=== PATIENT | female | born 1950 | race Caucasian/White ===

== ENCOUNTER → 2017-02-22 | Outpatient (CLI) | payer MEDICARE, OTHER ==
[2017-02-22 19:01] LABS: Basophils # (A) 0.1 k/uL (0-0.2); Basophils % (A) 1 %; CHCM 33.3; Eosinophils # (A) 0.1 k/uL (0-0.7); Eosinophils % (A) 1 %; HCT 49.9 % (34.0-46.0); HGB 16.3 gm/dL (11.4-16.0); Luc # (Auto) 0.16; Luc % (Auto) 2; Lymphocytes # (A) 1.7 k/uL (1.0-4.8); Lymphocytes % (A) 21 %; MCH 32.5 pg (25.0-35.0); MCHC 32.7 g/dL (31.0-37.0); MCV 99.6 fL (80.0-100.0); Mean Platelet Volume 9.4; Monocytes # (A) 0.5 k/uL (0-1.0); Monocytes % (A) 6 %; Neutrophils # (A) 5.6 k/uL (1.3-7.7); Neutrophils % (A) 70 %; RBC 5.01 m/uL (3.80-5.40); RDW 13.5 % (11.5-15.5); WBC 8.1 k/uL (3.8-10.6); WBC (Perox) 7.65
[2017-02-22 19:13] LABS: ALT 45 U/L (9-52); AST 39 U/L (14-36); Alkaline Phosphatase 94 U/L (38-126); Anion Gap 8 mmol/L; Blood Urea Nitrogen 14 mg/dL (7-17); Calcium 9.8 mg/dL (8.4-10.2); Carbon Dioxide 24 mmol/L (22-30); Chloride 102 mmol/L (98-107); Cholesterol 226 mg/dL (<200); Glucose 92 mg/dL (74-99); HDL Cholesterol 89 mg/dL (40-60); Non-African American GFR(MDRD) >60 (>60 ml/min/1.73 sqM); Potassium 5.7 mmol/L (3.5-5.1); Sodium 134 mmol/L (137-145); Total Bilirubin 0.5 mg/dL (0.2-1.3); Total Protein 7.1 g/dL (6.3-8.2); Triglycerides 80 mg/dL (<150)
[2017-02-22 20:01] LABS: Vitamin B12 712 pg/mL
== END | disposition home or self-care (01) ==
LOC: MMGSC 09:11
PROVIDERS: ATTEND Family Medicine
DX: Z00.00 Encounter for general adult medical examination without abnormal findings (principal); R53.83 Other fatigue
CPT/HCPCS: 36415; 80053; 80061; 82306; 82607; 84439; 84443; 85025

== ENCOUNTER → 2017-03-01 | Outpatient (CLI) | payer MEDICARE, OTHER ==
[2017-03-01 19:22] LABS: Potassium 4.5 mmol/L (3.5-5.1)
== END ==
LOC: MMGSC 09:27
PROVIDERS: ATTEND Family Medicine
DX: E87.5 Hyperkalemia (principal)
CPT/HCPCS: 36415; 80051

== ENCOUNTER → 2019-09-16 | Outpatient (CLI) | payer MEDICARE, BC ==
--- NOTE | 2019-09-19 16:34 | ECHOF ---
Referral Reason:R55 syncope MEASUREMENTS -------- HEIGHT: 162.6 cm WEIGHT: 61.2 kg BP: 158/74 RVIDd: 2.8 cm (< 3.3) IVSd: 1.3 cm (0.6 - 1.1) LVIDd: 3.8 cm (3.9 - 5.3) LVPWd: 1.1 cm (0.6 - 1.1) IVSs: 1.8 cm LVIDs: 2.5 cm LVPWs: 1.7 cm LA Diam: 3.1 cm (2.7 - 3.8) LAESV Index (A-L): 23.82 ml/m Ao Diam: 3.2 cm (2.0 - 3.7) AV Cusp: 2.0 cm (1.5 - 2.6) MV EXCURSION: 21.150 mm (> 18.000) MV EF SLOPE: 72 mm/s (70 - 150) EPSS: 0.7 cm MV E Fabio: 0.67 m/s MV DecT: 451 ms MV A Fabio: 0.93 m/s MV E/A Ratio: 0.73 FINDINGS -------- Sinus rhythm. This was a technically adequate study. The left ventricular size is normal. There is mild concentric left ventricular hypertrophy. Overa ll left ventricular systolic function is normal with, an EF between 60 - 65 %. The right ventricle is normal in size. Normal LA size by volume 22+/-6 ml/m2. The right atrium is normal in size. Interatrial and interventricular septum intact. The aortic valve is trileaflet and appears structurally normal. The mitral valve is normal. The tricuspid valve appears structurally normal. The pulmonic valve was not well visualized. The aortic root size is normal. Normal inferior vena cava with normal inspiratory collapse consistent with estimated right atrial pre ssure of 5 mmHg. There is no pericardial effusion. CONCLUSIONS -------- 1. Sinus rhythm. 2. This was a technically adequate study. 3. The left ventricular size is normal. 4. There is mild concentric left ventricular hypertrophy. 5. Overall left ventricular systolic function is normal with, an EF between 60 - 65 %. 6. The right ventricle is normal in size. 7. Normal LA size by volume 22+/-6 ml/m2. 8. The right atrium is normal in size. 9. Interatrial and interventricular septum intact. 10. The aortic valve is trileaflet and appears structurally normal. 11. The mitral valve is normal. 12. The tricuspid valve appears structurally normal. 13. The pulmonic valve was not well visualized. 14. The aortic root size is normal. 15. Normal inferior vena cava with normal inspiratory collapse consistent with estimated right atrial pressure of 5 mmHg. 16. There is no pericardial effusion. REGISTRY NP: Lois Rosado RDCS
== END | disposition home or self-care (01) ==
LOC: RADECHMAIN 10:49
PROVIDERS: ATTEND Family Medicine
DX: I51.7 Cardiomegaly (principal)
CPT/HCPCS: 93306

== ENCOUNTER → 2019-09-27 | Outpatient (CLI) | payer MEDICARE, BC ==
--- NOTE | 2019-09-27 15:09 | US ---
EXAMINATION TYPE: US carotid duplex BILAT DATE OF EXAM: 09/27/2019 COMPARISON: NONE CLINICAL HISTORY: R55 Syncope. EXAM MEASUREMENTS: RIGHT: Peak Systolic Velocity (PSV) cm/sec ----- Right CCA: 131.0 ----- Right ICA: 184.0 ----- Right ECA: 180.0 ICA/CCA ratio: 2.17 RIGHT: End Diastole cm/sec ----- Right CCA: 28.7 ----- Right ICA: 44.3 ----- Right ECA: 16.4 LEFT: Peak Systolic Velocity (PSV) cm/sec ----- Left CCA: 189.0 ----- Left ICA: 263.0 ----- Left ECA: 341.0 ICA/CCA ratio: 1.39 LEFT: End Diastole cm/sec ----- Left CCA: 33.0 ----- Left ICA: 45.3 ----- Left ECA: 0.0 VERTEBRALS (direction of flow): Right Vertebral: Retrograde Left Vertebral: Antegrade Rhythm: Normal Extensive intimal thickening and plaque noted throughout all vessels. Elevated velocities noted throu ghout all vessels. Retrograde flow right vertebral. IMPRESSION: 1. Extensive atherosclerosis with greater than 70% stenosis in the left internal carotid artery and e xternal carotid artery as well as 50-69% stenosis within the right internal carotid and external mayers tid artery. 2. Retrograde flow within the right vertebral artery. CTA neck is recommended. Criteria for Assigning % of Stenosis / Diameter reduction (Estimation based on the indirect measurements of the internal carotid artery velocities (ICA PSV). 1. Normal (no stenosis)=ICA PSV < 125 cm/s: ratio < 2.0: ICA EDV<40 cm/s. 2. Less than 50% stenosis=ICA PSV < 125 cm/s: ratio < 2.0: ICA EDV<40 cm/s. 3. 50 to 69% stenosis=ICA PSV of 125 to 230 cm/s: ration 2.0 ? 4.0: ICA EDV 40-100 cm/s. 4. Greater than 70% stenosis to near occlusion= ICA PSV > 230 cm/s: ratio > 4.0: ICA EDV > 100 cm/s. 5. Near occlusion= ICA PSV velocities may be low or undetectable: variable ratio and ICA EDV. 6. Total occlusion=unable to detect flow.
== END | disposition home or self-care (01) ==
LOC: RADUSWWP 14:12
PROVIDERS: ATTEND Family Medicine
DX: I65.23 Occlusion and stenosis of bilateral carotid arteries (principal)
CPT/HCPCS: 93880

== ENCOUNTER → 2019-12-09 | Outpatient (CLI) | payer MEDICARE, BC ==
[2019-12-09 12:09] LABS: African American GFR (CKD) >90 (>60 ml/min/1.73 sqM); Blood Urea Nitrogen 19 mg/dL (7-17); Non-African American GFR(CKD) 90 (>60 ml/min/1.73 sqM)
--- NOTE | 2019-12-09 14:05 | CT ---
EXAMINATION TYPE: CT angio neck DATE OF EXAM: 12/09/2019 HISTORY: follow up abnormal ultrasound COMPARISON: Carotid ultrasound September 27, 2019. CT DLP: 151.9 mGycm. Automated Exposure Control for Dose Reduction was Utilized. TECHNIQUE: CTA scan of the neck is performed with IV Contrast, patient injected with 65 mL of Isovue 370, axial images are obtained, coronal and sagittal reformatted images are reviewed. Three-D recons tructed images are created on an independent workstation and reviewed. FINDINGS: Carotid/Vascular Structures: Normal three-vessel origin from aortic arch. Mild to moderate mixed pl aque in the arch extending into the great vessels. Right common carotid artery shows normal origin fr om the right brachiocephalic artery with moderate focal plaque at its origin. There is moderate eccen tric mixed plaque in the proximal internal carotid artery. Stenosis up to 2.8 mm seen on image 70 of the 1 mm sequences with reconstitution to 5.0 mm image 76. There is moderate noncalcified plaque ante riorly on axial image 30. Lumen diameter narrowed to 2.9 mm image 87 with reconstitution to 6.2 mm im age 89. This correlates with stenosis just over 50 %. Remainder right common carotid artery shows mo derate mixed plaque distally right before carotid bulb with more severe plaque extending into the pro ximal internal carotid artery causing significant stenosis for reference image 48. Raw data image 143 show stenosis up to 1.9 mm and reconstitution to 5.1 mm image 157. Patent right external carotid art emilia without significant stenosis. Remainder right internal carotid artery shows mild calcified plaque supraclinoid segment which is only partially imaged. Moderate mixed plaque in the proximal left common carotid artery without significant stenosis. Mild t o moderate anterior calcified plaque mid to distal segment. Moderate to severe plaquing left carotid bulb extending into proximal internal and external carotid arteries with significant stenosis at orig in of left external carotid artery. For reference image 141 versus reconstitution distally image 146. No significant stenosis in visualized portion of left internal carotid artery. Codominant vertebrobasilar system. Vertebral arteries are patent to basilar junction. Other: Mild to moderate emphysematous changes visualized lung apices. Moderate to severe disc space narrowing C6-C7 level. Slight scoliotic curvature on the coronal images . IMPRESSION: Moderate to severe plaque bilaterally. Confirmation of significant stenosis at proximal r ight internal carotid artery calculated just under 70%, Closer to 65%. Significant stenosis just over 50% in the proximal right common carotid artery. No significant stenosis in left common or internal carotid arteries or right external carotid artery. Significant stenosis just over 50% at origin of le ft external carotid artery thought present.
== END | disposition home or self-care (01) ==
LOC: RADCTMAIN 10:52
PROVIDERS: ATTEND Surgery
DX: I65.23 Occlusion and stenosis of bilateral carotid arteries (principal)
CPT/HCPCS: 82565; 84520; 70498; 36415; Q9967

== ENCOUNTER 2020-07-12 22:00 | Inpatient (IN) | payer MEDICARE, BC ==
[2020-07-12] MEDS ORDERED: IPRATROPIUM-ALBUTEROL 3 ML NEB INHALATION STA (22:22)
[2020-07-12] MEDS ORDERED: predniSONE 20 MG TAB PO STA (22:22)
[2020-07-12] MEDS ORDERED: ALBUTEROL NEBULIZED 2.5 MG/3 ML INHALATION STA (22:22)
--- NOTE | 2020-07-12 22:24 | ED ---
SOB HPI - General Chief Complaint: Shortness of Breath Stated Complaint: SANDRA Time Seen by Provider: 07/12/20 22:06 Source: patient, EMS Mode of arrival: EMS Limitations: no limitations - History of Present Illness Initial Comments: This patient is a 69-year-old woman with history of chronic lung disease, she is a patient of Dr. Ansari, she states that she ran out of some of her inhaled medications yesterday and since that time has been feeling worse and worse. She describes wheezing, shortness of breath. The patient also has a chronic cough but has not noticed a change in that. She has not noted fever or chills. No chest pain. No leg pain or swelling. No change in urination or bowel movements. MD Complaint: shortness of breath, cough Onset/Timin -: days(s) Severity scale (1-10): 0 Consistency: constant Improves With: oxygen Worsens With: nothing Known History Of: COPD Associated Symptoms: denies other symptoms Treatments Prior to Arrival: oxygen, NIPPV - Related Data Home Oxygen Therapy: No Home Medications Medication Instructions Recorded Confirmed Albuterol Nebulized [Ventolin 2.5 mg INHALATION RT-QID 07/13/20 07/13/20 Nebulized] Budesonide [Pulmicort] 0.5 mg INHALATION RT-BID 07/13/20 07/13/20 Formoterol Fumarate [Perforomist] 20 mcg INHALATION RT-BID 07/13/20 07/13/20 Metoclopramide [Reglan] 5 mg PO DAILY 07/13/20 07/13/20 Omeprazole 20 mg PO DAILY 07/13/20 07/13/20 PARoxetine HCL 30 mg PO DAILY 07/13/20 07/13/20 Requip Unknown Dose 1 tab PO HS 07/13/20 07/13/20 Triamterene/Hydrochlorothiazid 1 tab PO DAILY 07/13/20 07/13/20 [Triamterene-Hctz 37.5-25 mg Tb] Yupelri 1 dose INHALATION RT-DAILY 07/13/20 07/13/20 Allergies Allergy/AdvReac Type Severity Reaction Status Date / Time No Known Allergies Allergy Verified 07/13/20 07:28 Review of Systems ROS Statement: Those systems with pertinent positive or pertinent negative responses have been documented in the HPI. ROS Other: All systems not noted in ROS Statement are negative. Constitutional: Denies: fever, chills ENT: Denies: throat pain, congestion Respiratory: Reports: cough, dyspnea, wheezes. Denies: hemoptysis Cardiovascular: Denies: chest pain, palpitations, dyspnea on exertion, orthopnea, syncope Gastrointestinal: Denies: abdominal pain, nausea, vomiting, diarrhea, melena, hematochezia Genitourinary: Denies: dysuria, frequency, hematuria Musculoskeletal: Denies: back pain Skin: Denies: rash Neurological: Denies: headache, weakness, numbness Past Medical History Past Medical History: COPD, Hypertension Additional Past Medical History / Comment(s): skin cancer History of Any Multi-Drug Resistant Organisms: None Reported Past Surgical History: Section, Tonsillectomy Past Psychological History: No Psychological Hx Reported Smoking Status: Current every day smoker Past Alcohol Use History: Occasional Past Drug Use History: None Reported - Past Family History Father Family Medical History: Myocardial Infarction ([place]) Additional Family Medical History / Comment(s): at age 29 of [place] Mother Family Medical History: CVA/TIA Additional Family Medical History / Comment(s): passed at age 83 General Exam Limitations: no limitations General appearance: alert, in distress Head exam: Present: atraumatic, normocephalic Eye exam: Present: normal appearance. Absent: scleral icterus, conjunctival injection Neck exam: Present: normal inspection, full ROM Respiratory exam: Present: wheezes, accessory muscle use, decreased breath sounds, prolonged expiratory. Absent: rales, rhonchi, stridor, chest wall tenderness Cardiovascular Exam: Present: regular rate, normal rhythm, normal heart sounds. Absent: systolic murmur, diastolic murmur, rubs, gallop GI/Abdominal exam: Present: soft. Absent: distended, tenderness, guarding, rebound, rigid, mass Extremities exam: Present: normal inspection, normal capillary refill. Absent: pedal edema, calf tenderness Back exam: Present: normal inspection. Absent: CVA tenderness (R), CVA tenderness (L) Neurological exam: Present: alert Skin exam: Present: warm, dry, intact, normal color. Absent: rash Course Vital Signs 07/12/20 07/12/20 07/12/20 22:02 22:22 22:40 Temperature 97.2 F L Pulse Rate 82 Respiratory 27 H Rate Blood Pressure 96/45 124/93 O2 Sat by Pulse 97 Oximetry 07/12/20 07/12/20 07/12/20 22:43 22:47 22:58 Temperature Pulse Rate 92 90 Respiratory 35 H Rate Blood Pressure O2 Sat by Pulse Oximetry 07/12/20 07/13/20 07/13/20 23:12 00:48 01:06 Temperature Pulse Rate 96 82 82 Respiratory 30 H Rate Blood Pressure 115/88 O2 Sat by Pulse 97 Oximetry 07/13/20 01:53 Temperature Pulse Rate Respiratory 23 Rate Blood Pressure 105/51 O2 Sat by Pulse 96 Oximetry Medical Decision Making - Lab Data Result diagrams: 07/12/20 22:31 07/12/20 22:31 Lab Results 07/12/20 07/12/20 07/12/20 Range/Units 22:31 22:31 22:31 WBC 8.2 (3.8-10.6) k/uL RBC 4.43 (3.80-5.40) m/uL Hgb 13.7 (11.4-16.0) gm/dL Hct 41.7 (34.0-46.0) % MCV 94.2 (80.0-100.0) fL MCH 30.9 (25.0-35.0) pg MCHC 32.8 (31.0-37.0) g/dL RDW 13.1 (11.5-15.5) % Plt Count 346 (150-450) k/uL MPV 8.0 Neutrophils % 44 % Lymphocytes % 41 % Monocytes % 7 % Eosinophils % 3 % Basophils % 1 % Neutrophils # 3.6 (1.3-7.7) k/uL Lymphocytes # 3.4 (1.0-4.8) k/uL Monocytes # 0.6 (0-1.0) k/uL Eosinophils # 0.3 (0-0.7) k/uL Basophils # 0.1 (0-0.2) k/uL PT 9.4 (9.0-12.0) sec INR 0.9 (<1.2) APTT 24.6 (22.0-30.0) sec D-Dimer 0.58 (<0.60) mg/L FEU Sodium 132 L (137-145) mmol/L Potassium 5.1 (3.5-5.1) mmol/L Chloride 101 (98-107) mmol/L Carbon Dioxide 25 (22-30) mmol/L Anion Gap 6 mmol/L BUN 16 (7-17) mg/dL Creatinine 0.58 (0.52-1.04) mg/dL Est GFR (CKD-EPI)AfAm >90 (>60 ml/min/1.73 sqM) Est GFR (CKD-EPI)NonAf >90 (>60 ml/min/1.73 sqM) Glucose 110 H (74-99) mg/dL Plasma Lactic Acid Froilan (0.7-2.0) mmol/L Calcium 9.2 (8.4-10.2) mg/dL Total Bilirubin 0.6 (0.2-1.3) mg/dL AST 43 H (14-36) U/L ALT 30 (4-34) U/L Alkaline Phosphatase 85 (38-126) U/L Troponin I (0.000-0.034) ng/mL NT-Pro-B Natriuret Pep pg/mL Total Protein 7.3 (6.3-8.2) g/dL Albumin 4.2 (3.5-5.0) g/dL Coronavirus (PCR) (Not Detectd) 07/12/20 07/12/20 07/12/20 Range/Units 22:31 22:31 22:31 WBC (3.8-10.6) k/uL RBC (3.80-5.40) m/uL Hgb (11.4-16.0) gm/dL Hct (34.0-46.0) % MCV (80.0-100.0) fL MCH (25.0-35.0) pg MCHC (31.0-37.0) g/dL RDW (11.5-15.5) % Plt Count (150-450) k/uL MPV Neutrophils % % Lymphocytes % % Monocytes % % Eosinophils % % Basophils % % Neutrophils # (1.3-7.7) k/uL Lymphocytes # (1.0-4.8) k/uL Monocytes # (0-1.0) k/uL Eosinophils # (0-0.7) k/uL Basophils # (0-0.2) k/uL PT (9.0-12.0) sec INR (<1.2) APTT (22.0-30.0) sec D-Dimer (<0.60) mg/L FEU Sodium (137-145) mmol/L Potassium (3.5-5.1) mmol/L Chloride (98-107) mmol/L Carbon Dioxide (22-30) mmol/L Anion Gap mmol/L BUN (7-17) mg/dL Creatinine (0.52-1.04) mg/dL Est GFR (CKD-EPI)AfAm (>60 ml/min/1.73 sqM) Est GFR (CKD-EPI)NonAf (>60 ml/min/1.73 sqM) Glucose (74-99) mg/dL Plasma Lactic Acid Froilan 1.1 (0.7-2.0) mmol/L Calcium (8.4-10.2) mg/dL Total Bilirubin (0.2-1.3) mg/dL AST (14-36) U/L ALT (4-34) U/L Alkaline Phosphatase (38-126) U/L Troponin I <0.012 (0.000-0.034) ng/mL NT-Pro-B Natriuret Pep 114 pg/mL Total Protein (6.3-8.2) g/dL Albumin (3.5-5.0) g/dL Coronavirus (PCR) (Not Detectd) 07/12/20 Range/Units 22:31 WBC (3.8-10.6) k/uL RBC (3.80-5.40) m/uL Hgb (11.4-16.0) gm/dL Hct (34.0-46.0) % MCV (80.0-100.0) fL MCH (25.0-35.0) pg MCHC (31.0-37.0) g/dL RDW (11.5-15.5) % Plt Count (150-450) k/uL MPV Neutrophils % % Lymphocytes % % Monocytes % % Eosinophils % % Basophils % % Neutrophils # (1.3-7.7) k/uL Lymphocytes # (1.0-4.8) k/uL Monocytes # (0-1.0) k/uL Eosinophils # (0-0.7) k/uL Basophils # (0-0.2) k/uL PT (9.0-12.0) sec INR (<1.2) APTT (22.0-30.0) sec D-Dimer (<0.60) mg/L FEU Sodium (137-145) mmol/L Potassium (3.5-5.1) mmol/L Chloride (98-107) mmol/L Carbon Dioxide (22-30) mmol/L Anion Gap mmol/L BUN (7-17) mg/dL Creatinine (0.52-1.04) mg/dL Est GFR (CKD-EPI)AfAm (>60 ml/min/1.73 sqM) Est GFR (CKD-EPI)NonAf (>60 ml/min/1.73 sqM) Glucose (74-99) mg/dL Plasma Lactic Acid Froilan (0.7-2.0) mmol/L Calcium (8.4-10.2) mg/dL Total Bilirubin (0.2-1.3) mg/dL AST (14-36) U/L ALT (4-34) U/L Alkaline Phosphatase (38-126) U/L Troponin I (0.000-0.034) ng/mL NT-Pro-B Natriuret Pep pg/mL Total Protein (6.3-8.2) g/dL Albumin (3.5-5.0) g/dL Coronavirus (PCR) Not Detected (Not Detectd) - EKG Data -: EKG Interpreted by Me EKG shows normal: sinus rhythm, axis (Normal), intervals (Normal), QRS complexes (Normal), ST-T waves (Normal) Rate: normal (Rate 80 bpm) Critical Care Time Critical Care Time: Yes (30 minutes) Disposition Clinical Impression: COPD exacerbation Disposition: ADMITTED IP TO THIS HOSP Condition: Fair Is patient prescribed a controlled substance at d/c from ED?: No
[2020-07-12 22:40] LABS: Basophils # (A) 0.1 k/uL (0-0.2); Basophils % (A) 1 %; Eosinophils # (A) 0.3 k/uL (0-0.7); Eosinophils % (A) 3 %; HCT 41.7 % (34.0-46.0); HGB 13.7 gm/dL (11.4-16.0); Lymphocytes # (A) 3.4 k/uL (1.0-4.8); Lymphocytes % (A) 41 %; MCH 30.9 pg (25.0-35.0); MCHC 32.8 g/dL (31.0-37.0); MCV 94.2 fL (80.0-100.0); Monocytes # (A) 0.6 k/uL (0-1.0); Monocytes % (A) 7 %; Neutrophils # (A) 3.6 k/uL (1.3-7.7); Neutrophils % (A) 44 %; Platelet Count 346 k/uL (150-450); RBC 4.43 m/uL (3.80-5.40); RDW 13.1 % (11.5-15.5); WBC 8.2 k/uL (3.8-10.6)
[2020-07-12 22:53] LABS: ALT 30 U/L (4-34); AST 43 U/L (14-36); African American GFR (CKD) >90 (>60 ml/min/1.73 sqM); Albumin 4.2 g/dL (3.5-5.0); Alkaline Phosphatase 85 U/L (38-126); Anion Gap 6 mmol/L; Blood Urea Nitrogen 16 mg/dL (7-17); Calcium 9.2 mg/dL (8.4-10.2); Carbon Dioxide 25 mmol/L (22-30); Chloride 101 mmol/L (98-107); Glucose 110 mg/dL (74-99); Non-African American GFR(CKD) >90 (>60 ml/min/1.73 sqM); Sodium 132 mmol/L (137-145); Total Bilirubin 0.6 mg/dL (0.2-1.3); Total Protein 7.3 g/dL (6.3-8.2)
[2020-07-12 22:54] LABS: Potassium 5.1 mmol/L (3.5-5.1)
--- NOTE | 2020-07-12 22:56 | XR ---
EXAMINATION TYPE: XR chest 1V portable DATE OF EXAM: 07/12/2020 COMPARISON: 07/31/2019 HISTORY: Short of breath TECHNIQUE: Single view FINDINGS: Heart is normal. Lungs are clear of consolidation. There are no hilar masses. Bony thorax i s intact. There are chest leads. IMPRESSION: No active cardiopulmonary disease. No significant change.
[2020-07-12 22:58] LABS: D-Dimer 0.58 mg/L FEU (<0.60); INR 0.9 (<1.2); Partial Thromboplastin Time 24.6 sec (22.0-30.0); Prothrombin Time 9.4 sec (9.0-12.0)
[2020-07-13] MEDS ORDERED: ALBUTEROL NEBULIZED 2.5 MG/3 ML INHALATION STA
[2020-07-13] MEDS ORDERED: ALBUTEROL NEBULIZED 2.5 MG/3 ML INHALATION PRN (01:16)
[2020-07-13 02:12] LABS: ABG Base Excess -0.5 mmol/L; ABG HCO3 25 mmol/L (21-25); ABG Oxygen Saturation 98.1 % (94-97); ABG PCO2 41 mmHg (35-45); ABG PH 7.39 (7.35-7.45); ABG PO2 94 mmHg (83-108); ABG TCO2 26 mmol/L (19-24); Allen Test Performed? Yes
--- NOTE | 2020-07-13 02:27 | P.HPIM ---
History of Present Illness H&P Date: 07/13/20 Patient is a 69-year-old female with a PMH of COPD and active tobacco abuse who presented to the emergency room with complaints of shortness breath and wheezing. The patient notes that her symptoms are gradually worsened over the past few days. She recently ran out of her inhalers due to the delays in refilling them through her insurance. She normally follows with Dr. Ansari though has not seen him for a few months. At time of interview, she noted that her breathing feels better, but was not back to her baseline yet. She denied additional complaints. She denied chest pain, cough, fever, chills. Also denied lower extremity pain or swelling. Denied orthopnea, PND, abdominal pain, nausea, vomiting, diarrhea. The patient was placed on BiPAP in the emergency room. Chest x-ray was unremarkable and EKG revealed normal sinus rhythm at [address]/T-wave changes noted as reviewed by me. Laboratory evaluation was remarkable for a sodium of 132, lactic acid 1.1, coronavirus PCR negative, and troponin less than 0.012. Past Medical History Past Medical History: COPD, Hypertension Additional Past Medical History / Comment(s): skin cancer History of Any Multi-Drug Resistant Organisms: None Reported Past Surgical History: Section, Tonsillectomy Past Psychological History: No Psychological Hx Reported Smoking Status: Current every day smoker Past Alcohol Use History: Occasional Past Drug Use History: None Reported Medications and Allergies Allergies Allergy/AdvReac Type Severity Reaction Status Date / Time No Known Allergies Allergy Verified 07/12/20 22:13 Physical Exam Vitals: Vital Signs Temp Pulse Resp BP Pulse Ox 07/13/20 01:53 23 105/51 96 07/13/20 01:06 82 07/13/20 00:48 82 07/12/20 23:12 96 30 H 115/88 97 07/12/20 22:58 90 07/12/20 22:47 35 H 07/12/20 22:43 92 07/12/20 22:40 124/93 07/12/20 22:22 97.2 F L 07/12/20 22:02 82 27 H 96/45 97 Intake and Output 07/12/20 07/12/20 07/13/20 14:59 22:59 06:59 Other: Weight 63.503 kg General: non toxic, no distress, appears at stated age, normal weight Derm: no unusual rashes/lesions no unusual ecchymoses, warm, dry Head: atraumatic, normocephalic, symmetric Eyes: EOMI, no lid lag, anicteric sclera, pupils equal round reactive to light ENT: Nose and ears atraumatic, no thrush, no pharyngeal erythema Neck: No thyromegaly, no cervical lymphadenopathy, trachea midline, supple Mouth: no lip lesion, mucus membranes moist Cardiovascular: S1S2 reg, no murmur, positive posterior tibial pulse bilateral, no edema, capillary refill less than 2 seconds Lungs: Wheezing throughout with no rales or rhonchi appreciated, no accessory muscle use Abdominal: soft, nontender to palpation, no guarding, no appreciable organomegaly, normal bowel sounds Ext: no gross muscle atrophy, muscle strength 5 out of 5 in all 4 extremities grossly, no contractures, Neuro: CN II-XI grossly intact, light touch intact all 4 extremities, finger to nose within normal limits, Psych: Alert, oriented, appropriate affect Results CBC & Chem 7: 07/12/20 22:31 07/12/20 22:31 Labs: Abnormal Lab Results - Last 24 Hours (Table) 07/12/20 07/13/20 Range/Units 22:31 02:01 ABG Total CO2 26 H (19-24) mmol/L ABG O2 Saturation 98.1 H (94-97) % Sodium 132 L (137-145) mmol/L Glucose 110 H (74-99) mg/dL AST 43 H (14-36) U/L Assessment and Plan Plan: Acute COPD exacerbation -DuoNeb's [id number] and as needed -Continue with Solu-Medrol -Titrated off of BiPAP as tolerated -Pulmonary consult Tobacco abuse -Strongly advised on the importance of cessation Hyponatremia -Possibly secondary to ongoing COPD -Monitor for now DVT prophylaxis -Heparin subq The patient is admitted with an anticipated greater than 2 midnight stay for evaluation of COPD exacerbation CODE STATUS: Full Code Discussed with: Patient Anticipated discharge date: 2-[address]: Home A total of 40 minutes was spent on the care of this complex patient more than 50% of the time was spent in counseling and care coordination.
[2020-07-13] MEDS: methylPREDNISolone SOD SUCCI 125 MG/2 ML VIAL IV SCH ×4 (05:27→23:59)
[2020-07-13] MEDS: IPRATROPIUM-ALBUTEROL 3 ML NEB INHALATION SCH ×4 (07:12→19:42)
[2020-07-13] MEDS ORDERED: SYMBICORT 80-4.5 MCG INHALER INHALATION SCH (08:00)
[2020-07-13] MEDS: NICOTINE 14MG/24HR PATCH TRANSDERM SCH (08:28)
[2020-07-13] MEDS ORDERED: predniSONE 20 MG TAB PO SCH (09:00)
[2020-07-13 11:01] LABS: Anion Gap 6.1 mmol/L (4.00-12.00); Calcium 9.4 mg/dL (8.7-10.3); Carbon Dioxide 24.9 mmol/L (21.6-31.8); Non-African American GFR(CKD) 74.2 (60.0-200.0); Potassium 4.9 mmol/L (3.5-5.5)
--- NOTE | 2020-07-13 12:41 | P.PN ---
Progress Note - Text Progress Note Date: 07/13/20 Patient seen and examined at bedside. Patient is currently on BiPAP patient states that her breathing is slightly better since admission. Continue to follow closely. Pulmonary will see the patient today. General: [non toxic], [no distress], [appears at stated age] Derm: [warm], [dry] Head: [atraumatic], [normocephalic], [symmetric] Eyes: [EOMI], [no lid lag], [anicteric sclera] Mouth: [no lip lesion], [mucus membranes moist] Cardiovascular: [S1S2 reg], [no murmur], [positive posterior tibial pulse bilateral], Lungs: [bilateral wheezing] , [accessory muscle use] Abdominal: [soft], [ nontender to palpation], [no guarding], [no appreciable organomegaly] Ext: [no gross muscle atrophy], [no edema], [no contractures] Neuro: [ CN II-XI grossly intact], [no focal neuro deficits] Psych: [Alert], [oriented], [appropriate affect] Acute hypoxic respiratory failure secondary to COPD exacerbation Continue IV steroids, BiPAP, and pulmonary recommendations
--- NOTE | 2020-07-13 13:23 | P.CNPUL ---
History of Present Illness Consult date: 07/13/20 Requesting physician: Leidy Denson Reason for consult: COPD Chief complaint: Shortness of breath cough and wheezing History of present illness: This is a 69-year-old female with known history of severe COPD, however she is not oxygen dependent and not prednisone dependent. Patient has tobacco de pendence syndrome, continues to smoke, patient is not compliant with her medications, and out of the medications few days ago, and did not get them refilled. She presented to the ER with 1 day history of cough wheezing shortness of breath. Patient denies any fever, no chills, no hemoptysis, no arthur st pain. No nausea no vomiting no abdominal pain no melena no hematemesis. Denies any dysuria frequency or urgency. Chest x-ray on this admission showed no evidence of active disease. ABG on 40% FiO2 showed a pO2 of 94 pCO2 41 pH of 7.39. Basic metabolic profile was normal. CBC was noted to be normal. PCR for trevino virus was negative. Review of Systems Constitutional: Weakness fatigue malaise, no fever, no chills, no weight loss. HEENT: Negative. Pulmonary: As noted in HPI mostly cough wheezing shortness of breath, cough is productive with yellow phlegm. Cardiac: Negative denies any chest pain or orthopnea PND or palpitations. GI: Negative. Genitourinary: Negative. Musculoskeletal: Negative. Skin: Negative. Endocrine: Negative. Neurologic: Negative. Hematologic: Negative. Psychiatric: Negative. Past Medical History Past Medical History: COPD, Hypertension Additional Past Medical History / Comment(s): skin cancer History of Any Multi-Drug Resistant Organisms: None Reported Past Surgical History: Section, Tonsillectomy Past Anesthesia/Blood Transfusion Reactions: No Reported Reaction Past Psychological History: No Psychological Hx Reported Smoking Status: Current every day smoker Past Alcohol Use History: Occasional Past Drug Use History: None Reported - Past Family History Father Family Medical History: Myocardial Infarction ([place]) Additional Family Medical History / Comment(s): at age 29 of [place] Mother Family Medical History: CVA/TIA Additional Family Medical History / Comment(s): passed at age 83 Medications and Allergies Home Medications Medication Instructions Recorded Confirmed Type Albuterol Nebulized [Ventolin 2.5 mg INHALATION RT-QID 07/13/20 07/13/20 History Nebulized] Budesonide [Pulmicort] 0.5 mg INHALATION RT-BID 07/13/20 07/13/20 History Formoterol Fumarate [Perforomist] 20 mcg INHALATION RT-BID 07/13/20 07/13/20 History Metoclopramide [Reglan] 5 mg PO DAILY 07/13/20 07/13/20 History Omeprazole 20 mg PO DAILY 07/13/20 07/13/20 History PARoxetine HCL 30 mg PO DAILY 07/13/20 07/13/20 History Triamterene/Hydrochlorothiazid 1 tab PO DAILY 07/13/20 07/13/20 History [Triamterene-Hctz 37.5-25 mg Tb] Yupelri 1 dose INHALATION RT-DAILY 07/13/20 07/13/20 History rOPINIRole HCL [Requip] 4 mg PO HS 07/13/20 07/13/20 History Allergies Allergy/AdvReac Type Severity Reaction Status Date / Time No Known Allergies Allergy Verified 07/13/20 07:28 Physical Exam Vitals: Vital Signs Temp Pulse Pulse Resp BP BP BP 07/13/20 11:20 88 07/13/20 11:08 88 07/13/20 11:00 97.7 F 85 22 114/71 07/13/20 07:28 76 07/13/20 07:13 76 07/13/20 05:30 22 07/13/20 03:19 78 28 H 144/77 95/64 07/13/20 02:46 97.8 F 89 32 H 85/55 07/13/20 01:53 23 105/51 07/13/20 01:06 82 07/13/20 00:48 82 07/12/20 23:12 96 30 H 115/88 07/12/20 22:58 90 07/12/20 22:47 35 H 07/12/20 22:43 92 07/12/20 22:40 124/93 07/12/20 22:22 97.2 F L 07/12/20 22:02 82 27 H 96/45 Pulse Ox 07/13/20 11:20 07/13/20 11:08 07/13/20 11:00 95 07/13/20 07:28 07/13/20 07:13 07/13/20 05:30 07/13/20 03:19 96 07/13/20 02:46 96 07/13/20 01:53 96 07/13/20 01:06 07/13/20 00:48 07/12/20 23:12 97 07/12/20 22:58 07/12/20 22:47 07/12/20 22:43 07/12/20 22:40 07/12/20 22:22 07/12/20 22:02 97 Intake and Output 07/12/20 07/13/20 07/13/20 22:59 06:59 14:59 Other: # Voids 1 # Bowel Movements 1 Weight 63.503 kg 63.503 kg Physical exam revealed a 69-year-old female on BiPAP, in no distress, seems to be quite comfortable on BiPAP. FiO2 is 40%, IPAP of 10 and EPAP of 5. Head: Atraumatic, normocephalic. HEENT: PERRLA, EOMI, nonicteric, no neck masses, no thyromegaly, slightly dry mucous membranes, throat is clear. Chest: Symmetrical chest expansion, diffuse rhonchi and wheezes noted bilaterally. Cardiac exam: Distant S1 and S2, no S3 gallop, no murmur. Abdomen: Flat soft nontender no megaly no rebound no guarding. Extremities: No clubbing edema or cyanosis. Neurologic: Alert and oriented 3 focal deficits. Psychiatric: Normal mood, affect and normal mental status examination. Skin: No rashes. Lymphatics: No cervical or supraclavicular lymphadenopathy. Results - Laboratory Findings CBC and BMP: 07/12/20 22:31 07/13/20 06:14 ABG ABG pH 7.39 (7.35-7.45) 07/13/20 02:01 ABG pCO2 41 mmHg (35-45) 07/13/20 02:01 ABG pO2 94 mmHg (83-108) 07/13/20 02:01 ABG O2 Saturation 98.1 % (94-97) H 07/13/20 02:01 PT/INR, D-dimer PT 9.4 sec (9.0-12.0) 07/12/20 22:31 INR 0.9 (<1.2) 07/12/20 22:31 D-Dimer 0.58 mg/L FEU (<0.60) 07/12/20 22:31 Abnormal lab findings: Abnormal Labs 07/12/20 07/13/20 07/13/20 22:31 02:01 06:14 ABG Total CO2 26 H ABG O2 Saturation 98.1 H Sodium 132 L 134 L Glucose 110 H 160 H AST 43 H - Diagnostic Findings Chest x-ray: image reviewed (As noted in HPI.) Assessment and Plan Assessment: Impression: Acute hypoxic respiratory failure secondary to acute exacerbation of COPD. Acute exacerbation of COPD. Acute purulent tracheobronchitis, no evidence of pneumonia on chest x-ray. Tobacco dependence syndrome. Noncompliance with medications, patient did not get them refilled. Recommendation: Counseled regarding smoking cessation. Continue nicotine patch. Continue Solu-Medrol at 60 mg IV push every 6 hours. Continue Symbicort. Continue DuoNeb. Continue Ventolin. Will add doxycycline 100 mg by mouth twice a day for 10 days. Patient is not ready for any discharge planning considering her clinical findings today. We'll continue to follow. Time with Patient: Greater than 30
[2020-07-13] MEDS: DOXYCYCLINE 100 MG CAP PO SCH ×2 (15:56→20:58)
[2020-07-13] MEDS: SYMBICORT 160-4.5 MCG INHALER INHALATION SCH (19:42)
[2020-07-14] MEDS: ALPRAZolam 0.25 MG TAB PO PRN ×3 (05:00→20:58)
[2020-07-14] MEDS: methylPREDNISolone SOD SUCCI 125 MG/2 ML VIAL IV SCH ×3 (05:00→17:17)
[2020-07-14 07:10] LABS: Basophils % (A) 0 %; Eosinophils % (A) 0 %; HCT 42.4 % (34.0-46.0); HGB 13.7 gm/dL (11.4-16.0); Lymphocytes # (A) 0.7 k/uL (1.0-4.8); Lymphocytes % (A) 6 %; MCH 30.7 pg (25.0-35.0); MCHC 32.4 g/dL (31.0-37.0); MCV 94.5 fL (80.0-100.0); Mean Platelet Volume 7.3; Monocytes # (A) 0.4 k/uL (0-1.0); Monocytes % (A) 3 %; Neutrophils # (A) 11.6 k/uL (1.3-7.7); Neutrophils % (A) 91 %; Platelet Count 345 k/uL (150-450); RBC 4.48 m/uL (3.80-5.40); RDW 13.2 % (11.5-15.5); WBC 12.7 k/uL (3.8-10.6)
[2020-07-14] MEDS: SYMBICORT 160-4.5 MCG INHALER INHALATION SCH (07:34)
[2020-07-14] MEDS: IPRATROPIUM-ALBUTEROL 3 ML NEB INHALATION SCH ×4 (07:34→20:27)
[2020-07-14] MEDS: DOXYCYCLINE 100 MG CAP PO SCH ×2 (08:17→20:57)
[2020-07-14] MEDS: NICOTINE 14MG/24HR PATCH TRANSDERM SCH (08:21)
[2020-07-14] MEDS ORDERED: FLUTICASONE 50MCG/SPRAY NASAL 16GM EA NOSTRIL PRN (08:26)
[2020-07-14 10:04] LABS: African American GFR (CKD) 106.3 (60.0-200.0); Albumin 4.5 g/dL (3.80-4.90); Albumin/Globulin Ratio 2.25 (1.60-3.17); Anion Gap 6.7 mmol/L (4.00-12.00); BUN/Creat Ratio 26.67 Ratio (12.00-20.00); Calcium 9.7 mg/dL (8.7-10.3); Carbon Dioxide 27.3 mmol/L (21.6-31.8); Non-African American GFR(CKD) 91.7 (60.0-200.0); Potassium 4.4 mmol/L (3.5-5.5); Total Bilirubin 0.3 mg/dL (0.3-1.2); Total Protein 6.5 g/dL (6.2-8.2)
--- NOTE | 2020-07-14 13:20 | P.PN ---
Subjective Progress Note Date: 07/14/20 Principal diagnosis: Acute exacerbation of COPD Patient was reevaluated today on 07/14/20, remains on BiPAP, continues to have intermittent episodes of cough and wheezing, remains on 40% FiO2. Patient was switched at one point to nasal cannula, but she didn't do well because she cannot breathe well from her nose. She is mostly a mouth breather. On physical examination she had less wheezing noted today compared to yesterday. Her labs were reviewed. And the patient seems to be on appropriate course of bronchodilators and antibiotics. Objective - Vital Signs Vital signs: Vital Signs Temp 98.4 F 07/14/20 11:00 Pulse 80 07/14/20 11:48 Resp 20 07/14/20 11:00 BP 108/65 07/14/20 11:00 Pulse Ox 96 07/14/20 11:00 Intake & Output 07/13/20 07/14/20 07/14/20 18:59 06:59 18:59 Intake Total 840 Balance 840 Intake: Oral 840 Other: # Voids 2 2 - Exam Physical Exam: Revealed a 69-year-old female in no distress, however she is maintained on BiPAP. Head: Atraumatic normocephalic HEENT:[Neck is supple.] [No neck masses.] [No thyromegaly.] [No JVD.] Chest: [Crackles and rhonchi and wheezes noted bilaterally. Cardiac Exam: [Normal S1 and S2, no S3 gallop, no murmur.] Abdomen: [Soft, nontender, no megaly, no rebound, no guarding, normal bowel sounds.] Extremities: [No clubbing, no edema, no cyanosis.] Neurological Exam: [No focal neurologic deficit.] Alert and oriented 3. Psychiatric: Normal mood affect and normal mental status examination. Skin: No rashes - Labs CBC & Chem 7: 07/14/20 06:56 07/14/20 06:56 Labs: Abnormal Lab Results - Last 24 Hours (Table) 07/14/20 07/14/20 Range/Units 06:56 06:56 WBC 12.7 H (3.8-10.6) k/uL Neutrophils # 11.6 H (1.3-7.7) k/uL Lymphocytes # 0.7 L (1.0-4.8) k/uL BUN/Creatinine Ratio 26.67 H (12.00-20.00) Ratio Glucose 132 H (70-110) mg/dL Assessment and Plan Assessment: Impression: Acute hypoxic respiratory failure secondary to acute exacerbation of COPD. Acute exacerbation of COPD. Acute purulent tracheobronchitis, no evidence of pneumonia on chest x-ray. Tobacco dependence syndrome. Noncompliance with medications, patient did not get them refilled. Recommendation: Continue BiPAP, and eventually transitioned to nasal cannula. Continue Solu-Medrol at 60 mg IV push every 6 hours. Continue Symbicort. Continue DuoNeb. Continue Ventolin. Continue doxycycline Patient is not ready for any discharge planning considering her clinical findings today. We'll continue to follow. Time with Patient: Less than 30
--- NOTE | 2020-07-14 14:26 | P.PN ---
Subjective Progress Note Date: 07/14/20 Pt continues to report trouble breathing, mainly bc her nose is plugged, but also continues to have wheezing on physical exam. Objective - Vital Signs Vital signs: Vital Signs Temp 98.4 F 07/14/20 11:00 Pulse 80 07/14/20 11:48 Resp 20 07/14/20 11:00 BP 108/65 07/14/20 11:00 Pulse Ox 96 07/14/20 11:00 Intake & Output 07/13/20 07/14/20 07/14/20 18:59 06:59 18:59 Intake Total 840 120 Balance 840 120 Intake: Oral 840 120 Other: # Voids 2 2 - Exam Gen: awake, alert HEENT: normocephalic, atraumatic, good hearing acuity, moist mucous membranes Resp: good air exchange, breathing comfortably with no accessory muscle use, on BiPAP, diffuse expiratory wheezing with rhonchi CVS: good distal perfusion x 4, regular rate and rhythm, no murmurs GI: soft, NTTP, ND : no SPT, no CVAT, winters catheter not present MSK: no pitting edema, no clubbing Neuro: non-focal, moving all extremities Psych: cooperative, euthymic mood - Labs CBC & Chem 7: 07/14/20 06:56 07/14/20 06:56 Labs: Abnormal Lab Results - Last 24 Hours (Table) 07/14/20 07/14/20 Range/Units 06:56 06:56 WBC 12.7 H (3.8-10.6) k/uL Neutrophils # 11.6 H (1.3-7.7) k/uL Lymphocytes # 0.7 L (1.0-4.8) k/uL BUN/Creatinine Ratio 26.67 H (12.00-20.00) Ratio Glucose 132 H (70-110) mg/dL Assessment and Plan Assessment: 1. COPD Exacerbation leading to Acute Hypoxemic/Hypercarbic Respiratory Failure 2. Purulent Tracheobronchitis 3. Chronic Sinusitis 4. Tobacco Abuse 5. Restless Leg Syndrome 6. Anxiety Disorder 69 year old woman with anxiety, RLS, tobacco abuse, chronic sinusitis and COPD presented with acute hypoxemic/hypercarbic respiratory failure requiring BIPAP support. Acute COPD exacerbation -DuoNeb's [id number] and as needed -Continue with Solu-Medrol -Titrated off of BiPAP as tolerated -Pulmonary consult -Doxycycline Tobacco abuse -Strongly advised on the importance of cessation Hyponatremia -Possibly secondary to ongoing COPD -Monitor for now DVT prophylaxis -Heparin subq The patient is admitted with an anticipated greater than 2 midnight stay for evaluation of COPD exacerbation CODE STATUS: Full Code Discussed with: Patient Anticipated discharge date: 2-[address]: Home
[2020-07-14] MEDS ORDERED: ALBUTEROL NEBULIZED 2.5 MG/3 ML INHALATION SCH (16:00)
[2020-07-14] MEDS: ASPIRIN 81 MG PO SCH (17:17)
[2020-07-14] MEDS ORDERED: SODIUM CHLORIDE 0.65% NASAL SPRAY 44 ML BTL NASAL PRN (17:33)
[2020-07-14] MEDS: FLUTICASONE 50MCG/SPRAY NASAL 16GM EA NOSTRIL SCH (17:58)
[2020-07-14] MEDS: BUDESONIDE 0.5 MG/2 ML NEBU INHALATION SCH (20:27)
[2020-07-14] MEDS: FORMOTEROL FUMARATE 20 MCG/2 ML NEBU INHALATION SCH (20:27)
[2020-07-14] MEDS ORDERED: rOPINIRole HCL 4 MG TABLET PO SCH (21:00)
[2020-07-15] MEDS: methylPREDNISolone SOD SUCCI 125 MG/2 ML VIAL IV SCH ×3 (00:41→12:45)
[2020-07-15 05:51] VITALS: TEMP 98.6
[2020-07-15] MEDS ORDERED: PANTOPRAZOLE 40 MG TABLET PO SCH (07:30)
[2020-07-15] MEDS: ALPRAZolam 0.25 MG TAB PO PRN ×2 (07:53→12:48)
[2020-07-15] MEDS: ASPIRIN 81 MG PO SCH (07:54)
[2020-07-15] MEDS: DOXYCYCLINE 100 MG CAP PO SCH (07:54)
[2020-07-15] MEDS: NICOTINE 14MG/24HR PATCH TRANSDERM SCH (07:55)
[2020-07-15] MEDS: FLUTICASONE 50MCG/SPRAY NASAL 16GM EA NOSTRIL SCH (07:55)
[2020-07-15] MEDS ORDERED: YUPELRI INHALATION SCH (08:00)
[2020-07-15] MEDS: IPRATROPIUM-ALBUTEROL 3 ML NEB INHALATION SCH ×2 (08:29→11:19)
[2020-07-15] MEDS: BUDESONIDE 0.5 MG/2 ML NEBU INHALATION SCH (08:29)
[2020-07-15] MEDS: FORMOTEROL FUMARATE 20 MCG/2 ML NEBU INHALATION SCH (08:30)
[2020-07-15] MEDS ORDERED: PARoxetine 10 MG TAB PO SCH (09:00)
[2020-07-15] MEDS ORDERED: METOCLOPRAMIDE 5 MG TAB PO SCH (09:00)
[2020-07-15 11:36] VITALS: PULSE 77
[2020-07-15 12:01] VITALS: BP 119/72; RESP 18
--- NOTE | 2020-07-15 12:17 | P.DS ---
Providers Date of admission: 07/13/20 01:17 Expected date of discharge: 07/15/20 Attending physician: Leidy Denson MD Consults: 07/13/20 01:16 Consult Physician Routine Consulting Provider: Jcarlos Ansari Consult Reason/Comments: COPD exacerbation. Your patient. Do you want consulting provider notified?: Yes Primary care physician: [facility] Course: 1. COPD Exacerbation leading to Acute on Chronic Hypoxemic Respiratory Failure 2. Purulent Tracheobronchitis 3. Chronic Sinusitis 4. Tobacco Abuse 5. Restless Leg Syndrome 6. Anxiety Disorder 69 year old woman with anxiety, RLS, tobacco abuse, chronic sinusitis and COPD presented with acute hypoxemic respiratory failure requiring BIPAP support. She was able to be weaned down to nasal cannula, but upon discharge patient required home oxygen of 3L due to chronic respiratory failure from COPD as demonstrated by desaturation on ambulation. She was also discharged on prednisone 40mg for additional 3 days, doxycycline for additional 5 days, and new fluticasone and nasal spray inhaler. She will require follow up with PCP and pulmonary medicine. She was advised to discontinue pseudofed due to chronic sinusitis. I spent 35 minutes preparing this discharge. Assessment: Gen: awake, alert HEENT: normocephalic, atraumatic, good hearing acuity, moist mucous membranes Resp: good air exchange, breathing comfortably with no accessory muscle use, on BiPAP, diffuse expiratory wheezing with rhonchi CVS: good distal perfusion x 4, regular rate and rhythm, no murmurs GI: soft, NTTP, ND : no SPT, no CVAT, winters catheter not present MSK: no pitting edema, no clubbing Neuro: non-focal, moving all extremities Psych: cooperative, euthymic mood Patient Condition at Discharge: Good Plan - Discharge Summary New Discharge Prescriptions: New Sodium Chloride 0.65% Nasal [Deep Sea (Saline)] 2 spray NASAL QID PRN #1 each PRN Reason: Nasal Congestion predniSONE [Deltasone] 40 mg PO DAILY #6 tab Fluticasone Nasal Arthur [Flonase Nasal Arthur] 2 spray EA NOSTRIL 0900,2100 #1 each Doxycycline [Vibramycin] 100 mg PO BID #10 cap Continue Formoterol Fumarate [Perforomist] 20 mcg INHALATION RT-BID Budesonide [Pulmicort] 0.5 mg INHALATION RT-BID Albuterol Nebulized [Ventolin Nebulized] 2.5 mg INHALATION RT-QID Metoclopramide [Reglan] 5 mg PO DAILY Triamterene/Hydrochlorothiazid [Triamterene-Hctz 37.5-25 mg Tb] 1 tab PO DAILY PARoxetine HCL 30 mg PO DAILY Omeprazole 20 mg PO DAILY Yupelri 1 dose INHALATION RT-DAILY rOPINIRole HCL [Requip] 4 mg PO HS Discharge Medication List Albuterol Nebulized [Ventolin Nebulized] 2.5 mg INHALATION RT-QID 07/13/20 [History] Budesonide [Pulmicort] 0.5 mg INHALATION RT-BID 07/13/20 [History] Formoterol Fumarate [Perforomist] 20 mcg INHALATION RT-BID 07/13/20 [History] Metoclopramide [Reglan] 5 mg PO DAILY 07/13/20 [History] Omeprazole 20 mg PO DAILY 07/13/20 [History] PARoxetine HCL 30 mg PO DAILY 07/13/20 [History] Triamterene/Hydrochlorothiazid [Triamterene-Hctz 37.5-25 mg Tb] 1 tab PO DAILY 07/13/20 [History] Yupelri 1 dose INHALATION RT-DAILY 07/13/20 [History] rOPINIRole HCL [Requip] 4 mg PO HS 07/13/20 [History] Doxycycline [Vibramycin] 100 mg PO BID #10 cap 07/15/20 [Rx] Fluticasone Nasal Arthur [Flonase Nasal Arthur] 2 spray EA NOSTRIL 0900,2100 #1 each 07/15/20 [Rx] Sodium Chloride 0.65% Nasal [Deep Sea (Saline)] 2 spray NASAL QID PRN #1 each 07/15/20 [Rx] predniSONE [Deltasone] 40 mg PO DAILY #6 tab 07/15/20 [Rx] Follow up Appointment(s)/Referral(s): [facility] [NON-STAFF] - As Needed (Supplier of Home Oxygen) Lurdes Gunderson MD [Primary Care Provider] - 1-2 days
--- NOTE | 2020-07-15 13:58 | P.PN ---
Subjective Progress Note Date: 07/15/20 Principal diagnosis: Acute exacerbation of COPD Patient was reevaluated today on 07/14/20, remains on BiPAP, continues to have intermittent episodes of cough and wheezing, remains on 40% FiO2. Patient was switched at one point to nasal cannula, but she didn't do well because she cannot lynn the well from her nose. She is mostly a mouth breather. On physical examination she had less wheezing noted today compared to yesterday. Her labs were reviewed. And the patient seems to be on appropriate course of bronchodilators and antibiotics. Reevaluated today on 07/15/20, patient is on 2 L nasal cannula, doing much better, breathing a lot easier, hardly any cough no wheezing no shortness of breath. On 3 L nasal cannula, O2 saturations 93%. Labs today were unremarkable. Patient is feeling better, and she is being discharged home today. Objective - Vital Signs Vital signs: Vital Signs Temp 98.6 F 07/15/20 05:00 Pulse 77 07/15/20 11:30 Resp 18 07/15/20 11:00 BP 119/72 07/15/20 11:00 Pulse Ox 93 L 07/15/20 11:08 Intake & Output 07/14/20 07/15/20 07/15/20 18:59 06:59 18:59 Intake Total 770 120 240 Balance 770 120 240 Intake: Oral 770 120 240 Other: # Voids 2 2 - Exam Physical Exam: Revealed a 69-year-old female in no distress, however she is maintained on 3 L nasal cannula. Head: Atraumatic normocephalic HEENT:[Neck is supple.] [No neck masses.] [No thyromegaly.] [No JVD.] Chest: [Diminished breath sounds at the bases no rhonchi and no wheezes. Cardiac Exam: [Normal S1 and S2, no S3 gallop, no murmur.] Abdomen: [Soft, nontender, no megaly, no rebound, no guarding, normal bowel sounds.] Extremities: [No clubbing, no edema, no cyanosis.] Neurological Exam: [No focal neurologic deficit.] Alert and oriented 3. Psychiatric: Normal mood affect and normal mental status examination. Skin: No rashes - Labs CBC & Chem 7: 07/14/20 06:56 12/22/20 06:56 Assessment and Plan Assessment: Impression: Acute hypoxic respiratory failure secondary to acute exacerbation of COPD. Acute exacerbation of COPD. Acute purulent tracheobronchitis, no evidence of pneumonia on chest x-ray. Tobacco dependence syndrome. Noncompliance with medications, patient did not get them refilled. Recommendation: Continue oxygen at 3 L nasal cannula. Transition to prednisone burst and taper over 2 weeks. Continue Symbicort. Continue DuoNeb. Continue Ventolin. Continue doxycycline Agree with discharge planning today, follow-up with Dr. Ansari in 2 weeks Time with Patient: Less than 30
== END 2020-07-15 15:07 | disposition home or self-care (01) | DRG 190 ==
LOC: EC 22:00 → 6NMEDSUR 07-13 01:17
PROVIDERS: ADMIT Internal Medicine; ATTEND Internal Medicine
PROC: 5A09457 Assistance with Respiratory Ventilation, 24-96 Consecutive Hours, Continuous Positive Airway Pressure (ICD-10-PCS; principal; 2020-07-13)
DX: J44.1 Chronic obstructive pulmonary disease with (acute) exacerbation (principal); J96.21 Acute and chronic respiratory failure with hypoxia; J96.22 Acute and chronic respiratory failure with hypercapnia; E87.1 Hypo-osmolality and hyponatremia; Z20.828 Contact with and (suspected) exposure to other viral communicable diseases; F41.9 Anxiety disorder, unspecified; F17.200 Nicotine dependence, unspecified, uncomplicated; G25.81 Restless legs syndrome; I10 Essential (primary) hypertension; J32.9 Chronic sinusitis, unspecified; J20.9 Acute bronchitis, unspecified; Z79.899 Other long term (current) drug therapy; Z82.49 Family history of ischemic heart disease and other diseases of the circulatory system; Z85.828 Personal history of other malignant neoplasm of skin; Z91.14 Patient's other noncompliance with medication regimen; Z82.3 Family history of stroke
CPT/HCPCS: 36415; 36600; 71045; 80048; 80053; 82805; 83605; 83880; 84484; 85025; 85379; 85610; 85730; 87635; 93005; 94640; 94660; 99291

== ENCOUNTER → 2021-03-01 | Outpatient (CLI) | payer MEDICARE, BC ==
[2021-03-01 17:30] LABS: African American GFR (CKD) >90 (>60 ml/min/1.73 sqM); Blood Urea Nitrogen 22 mg/dL (7-17); Non-African American GFR(CKD) 83 (>60 ml/min/1.73 sqM)
--- NOTE | 2021-03-03 19:55 | CT ---
EXAMINATION TYPE: CT abdomen w con DATE OF EXAM: 03/01/2021 COMPARISON: None INDICATION: EPIGASTRIC PAIN WHEN EATING/DRINKING DLP: 505 mGycm, Automated exposure control for dose reduction was used. CONTRAST: 80 mL of Isovue 300. Study performed with Oral Contrast TECHNIQUE: Axial images were obtained from above the diaphragm to the pubic rami in the axial plane a t 5 mm thick sections. Reconstructed images are reviewed on the computer in the coronal plane. FINDINGS: Limited CT sections are obtained the lung bases. The lung bases are clear. CT ABDOMEN: Liver: Normal Spleen: Normal Pancreas: Normal Adrenal glands: The adrenal glands are normal. Gallbladder: Normal Kidneys: No masses are evident. No hydronephrosis is present. No cysts are present. Delayed images were obtained through the kidneys, which remain unremarkable. Aorta: Vascular calcification is within the aorta. Inferior vena cava: Normal. Bowel: Loops of bowel visualized appear unremarkable. Oral contrast extends to the ascending colon. IMPRESSIONS: 1. No suspicious abnormality account for epigastric pain
== END | disposition home or self-care (01) ==
LOC: RADCTMAIN 16:48
PROVIDERS: ATTEND Family Medicine
DX: R10.13 Epigastric pain (principal)
CPT/HCPCS: 82565; 84520; 74160; 36415; Q9967

== ENCOUNTER → 2021-04-20 | Outpatient (CLI) | payer MEDICARE, BC ==
[2021-04-20 09:15] LABS: African American GFR (CKD) >90 (>60 ml/min/1.73 sqM); Blood Urea Nitrogen 17 mg/dL (7-17); Non-African American GFR(CKD) >90 (>60 ml/min/1.73 sqM)
--- NOTE | 2021-04-20 10:09 | CT ---
EXAMINATION TYPE: CT angio neck DATE OF EXAM: 04/20/2021 COMPARISON: None HISTORY: carotid stenosis CT DLP: 244 mGycm CONTRAST: CTA cervical carotids is performed and with IV Contrast, patient injected with 65 mL of Isovue 370. Contrast CTA of the cervical carotids was performed 3-D reconstruction imaging obtained at a separate workstation. Right carotid system: Mild plaque is seen of the right common carotid artery. There is moderate plaq ue also noted at the carotid bulb. Estimated diameter reduction is greater than 80%. ECA is patent . Right vertebral artery appears unremarkable. Left carotid system: Mild plaque is seen of the left common carotid artery. There is mild plaque als o noted at the carotid bulb. Estimated diameter reduction is less than 50%. ECA is patent. Left ve rtebral artery appears unremarkable. IMPRESSION: 1. Estimated diameter reduction Right ICA of greater than 80% 2. Estimated diameter reduction Left ICA of less than 50% NASCET criteria was used in interpretation of this exam?
== END | disposition home or self-care (01) ==
LOC: RADCTMAIN 08:24
PROVIDERS: ATTEND Surgery
DX: I65.23 Occlusion and stenosis of bilateral carotid arteries (principal)
CPT/HCPCS: 82565; 84520; 70498; 36415; Q9967

== ENCOUNTER 2022-04-06 06:23 | Day surgery (SDC) | payer MEDICARE, BC ==
[~2022-04-06 06:23] MED LIST: LIDOCAINE 1% (10MG/ML) FOR IV START INTRADERMA PRN
[2022-04-06 07:04] VITALS: TEMP 97.6
[2022-04-06] MEDS: LACTATED RINGERS 1,000 ML IV SCH ×2 (07:18→07:25)
[2022-04-06] MEDS ORDERED: PROPOFOL 10 MG/ML 20 ML VIAL IV ONE (07:29)
--- NOTE | 2022-04-06 07:53 | P.PCN ---
Date of Procedure: 04/06/22 Procedure(s) Performed: Brief history: Patient is a pleasant 71-year-old white female scheduled for an elective upper endoscopy as well as colonoscopy as a part of evaluation of GERD/Benavides's esophagus and prior history of colon polyps Procedure performed: Esophagogastroduodenoscopy with biopsy Colonoscopy with snare polypectomy Preoperative diagnosis: GERD/Benavides's esophagus History of colon polyps Anesthesia: [facility] Procedure: After informed consent was obtained from the patient was brought into the endoscopy unit and IV sedation was administered by anesthesia under continuous monitoring. Initially upper endoscopy was done. The Olympus GF 160 video endoscope was inserted inserted into the mouth and esophagus intubated without any difficulty and was gradually advanced into the stomach and duodenum and carefully examined. The bulb and second part of the duodenum appeared normal. The scope was then withdrawn into the stomach adequately insufflated with air and upon careful examination the antrum and body, had mild gastritis. The cardia and fundus appeared normal. The scope was then withdrawn into the esophagus. The GE junction was located at 35 cm to the incisors. Small hiatal hernia noted. The GE junction regular with no erythema erosions or ulcerations. There was a 5 mm tongue of Benavides's appearing mucosa just proximal to the GE junction which was biopsied. Rest of the esophagus appeared normal. Patient tolerated the procedure well. At this time the patient continued to remain sedation. Initial digital rectal examination was normal. Olympus CF 160 video colonoscope was then inserted into the rectum and gradually advanced to the cecum without any difficulty. Careful examination was performed as the scope was gradually being withdrawn. The prep was excellent. The cecum, ascending colon, appeared normal. In the hepatic flexure there were 3 polyps measuring between 3 mm and 5 mm in size removed by snare polypectomy. In the transverse colon there was a 5 mm and 7 mm polyp removed by snare polypectomy. Rest of the transverse colon, descending colon, sigmoid colon and rectum appeared normal. In the rectum there was a 7 mm polyp removed by snare polypectomy. Retroflexion was performed in the rectum and no lesions were noted. Patient tolerated the procedure well. Impression: 1.. Upper Endoscopy revealed small hiatal hernia, short segment Benavides's esophagus and mild antral gastritis. 2. Colonoscopy revealed: a) 3 mm, 5 mm 2 hepatic flexure polyp status post polypectomy b) 5 mm and 7 mm transverse colon polyp status post polypectomy c) 5 mm rectal polyp status post polypectomy Recommendations: Findings of this examination were discussed with the patient as well as her family. She was advised to follow with the biopsy results. She will continue with omeprazole 20 mg daily and follow antireflux measures. She was advised to follow with the biopsy results. Recommend repeat colonoscopy in 3 years from now because of multiple colon polyps If the biopsy confirms the presence of Benavides's esophagus she can have a repeat upper endoscopy in 3 years.
[2022-04-06 09:08] VITALS: BP 131/64; PULSE 77; RESP 105
== END 2022-04-06 09:00 | disposition home or self-care (01) ==
LOC: ORWHC2ENDO 06:23
PROVIDERS: ATTEND Internal Medicine Gastroenterology
DX: Z12.11 Encounter for screening for malignant neoplasm of colon (principal); D12.3 Benign neoplasm of transverse colon; K29.70 Gastritis, unspecified, without bleeding; K44.9 Diaphragmatic hernia without obstruction or gangrene; K21.00 Gastro-esophageal reflux disease with esophagitis, without bleeding; K22.70 Barrett's esophagus without dysplasia; Z86.010 Personal history of colon polyps; I10 Essential (primary) hypertension; J44.9 Chronic obstructive pulmonary disease, unspecified; Z99.81 Dependence on supplemental oxygen; Z79.02 Long term (current) use of antithrombotics/antiplatelets; Z79.82 Long term (current) use of aspirin; Z79.899 Other long term (current) drug therapy
CPT/HCPCS: 88305; 45385; 43239; J2704

== ENCOUNTER 2022-07-29 14:05 | Emergency (ER) | payer MEDICARE, BC ==
[2022-07-29 14:11] VITALS: TEMP 97.8
--- NOTE | 2022-07-29 14:18 | ED ---
SOB HPI - General Source: patient, RN notes reviewed Mode of arrival: wheelchair Limitations: no limitations <Anish Lynn - Last Filed: 07/29/22 14:18> <Sana Langley - Last Filed: 08/07/22 21:40> - General Chief Complaint: Shortness of Breath Stated Complaint: abd lab Time Seen by Provider: 07/29/22 16:19 - History of Present Illness Initial Comments: 71-year-old female presents emergency Department chief complaint of shortness of breath. Patient does have underlying COPD. Patient was sent in by PCP for a bnormal labs. Patient states that she's been sick for a while intense getting worse. Patient states that she was told that she was anemic, thought her white count was elevated and she had abnormal liver function tests. 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 (Anish Lynn) 71-year-old female past medical history of COPD who wears 4 L of home O2 presents emergency Department with abnormal labs. She states that she has had increased worker breathing for the past week. She saw her primary care physician who placed her on a prednisone taper and antibiotics. She reports that these medications did improve her breathing however she also mentioned that she was having epigastric abdominal pain. Laboratory studies were conducted. Today she received a call stating that she needed to go into the emergency department because the patient was anemic and had elevation in her liver enzymes. Patient reports the epigastric pain has been going on for the past 8 months. She has not had any testing for it. Pain is worse with eating. She denies any chest pain. No fevers. No sick contacts. Denies history of cardiac disease. No diarrhea, constipation, black or bloody stools. No changes in her urination. No other alleviating, precipitating or modifying factors (Sana Langley) - Related Data Home Medications Medication Instructions Recorded Confirmed Albuterol Nebulized [Ventolin 2.5 mg INHALATION RT-QID 07/13/20 07/29/22 Nebulized] Budesonide [Pulmicort] 0.5 mg INHALATION RT-BID 07/13/20 07/29/22 Formoterol Fumarate [Perforomist] 20 mcg INHALATION RT-BID 07/13/20 07/29/22 Omeprazole 20 mg PO DAILY 07/13/20 07/29/22 PARoxetine HCL 30 mg PO DAILY 07/13/20 07/29/22 Triamterene/Hydrochlorothiazid 1 tab PO DAILY 07/13/20 07/29/22 [Triamterene-Hctz 37.5-25 mg Tb] Yupelri 175 mcg INHALATION RT-DAILY 07/13/20 07/29/22 Atorvastatin [Lipitor] 40 mg PO HS 10/20/21 07/29/22 Clopidogrel [Plavix] 75 mg PO DAILY 04/05/22 07/29/22 busPIRone HCL [Buspar] 7.5 mg PO DAILY 04/05/22 07/29/22 rOPINIRole HCL [Requip] 4 mg PO HS 04/05/22 07/29/22 Azithromycin [Zithromax Z Pack] See Taper PO DIRECTED 07/29/22 07/29/22 predniSONE See Taper PO DIRECTED 07/29/22 07/29/22 Allergies Allergy/AdvReac Type Severity Reaction Status Date / Time No Known Allergies Allergy Verified 07/29/22 18:49 Review of Systems ROS Other: All systems not noted in ROS Statement are negative. <Anish Lynn - Last Filed: 07/29/22 14:18> ROS Other: All systems not noted in ROS Statement are negative. <Sana Langley - Last Filed: 08/07/22 21:40> ROS Statement: Those systems with pertinent positive or pertinent negative responses have been documented in the HPI. 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 O2 4-5 L use 13/02. RESTLESS LEGS. Hx skin cancer multiple times. History of Any Multi-Drug Resistant Organisms: None Reported Past Surgical History: Section, Tonsillectomy Additional Past Surgical History / Comment(s): Growth removed from throat. Past Anesthesia/Blood Transfusion Reactions: No Reported Reaction Past Psychological History: Anxiety Smoking Status: Current every day smoker Past Alcohol Use History: Occasional Past Drug Use History: None Reported - Past Family History Father Family Medical History: Myocardial Infarction (MA) Additional Family Medical History / Comment(s): at age 29 of [place]. Mother Family Medical History: Cancer, CVA/TIA Additional Family Medical History / Comment(s): Breast cancer, passed at age 83. <Anish Lynn M - Last Filed: 07/29/22 14:18> General Exam Limitations: no limitations <Anish Lynn M - Last Filed: 07/29/22 14:18> General appearance: alert, in no apparent distress Head exam: Present: atraumatic, normocephalic, normal inspection Eye exam: Present: normal appearance, PERRL, EOMI. Absent: scleral icterus, conjunctival injection, periorbital swelling ENT exam: Present: normal exam, mucous membranes moist Neck exam: Present: normal inspection. Absent: tenderness, meningismus, lymphadenopathy Respiratory exam: Present: wheezes, decreased breath sounds. Absent: respiratory distress, rales, rhonchi, stridor Cardiovascular Exam: Present: regular rate, normal rhythm, normal heart sounds. Absent: systolic murmur, diastolic murmur, rubs, gallop, clicks GI/Abdominal exam: Present: soft, normal bowel sounds. Absent: distended, tenderness, guarding, rebound, rigid Extremities exam: Present: normal inspection, full ROM, normal capillary refill. Absent: tenderness, pedal edema, joint swelling, calf tenderness Back exam: Present: normal inspection Neurological exam: Present: alert, oriented X3, CN II-XII intact Psychiatric exam: Present: normal affect, normal mood Skin exam: Present: warm, dry, intact, normal color. Absent: rash <Sana Langley A - Last Filed: 08/07/22 21:40> Course Vital Signs 07/29/22 07/29/22 07/29/22 14:08 16:33 17:42 Temperature 97.8 F Pulse Rate 77 82 77 Respiratory 20 26 H Rate Blood Pressure 106/69 O2 Sat by Pulse 96 96 Oximetry 07/29/22 07/29/22 17:51 19:07 Temperature Pulse Rate 74 77 Respiratory 18 Rate Blood Pressure 136/84 O2 Sat by Pulse 98 Oximetry Medical Decision Making - Lab Data Result diagrams: 07/29/22 15:11 07/29/22 15:11 <Sana Langley A - Last Filed: 08/07/22 21:40> - Medical Decision Making Was pt. sent in by a medical professional or institution? PCP Did you speak to anyone other than the patient for history? no Did you review nursing and triage notes? yes and I agree Were old charts reviewed? yes, I reviewed previous admission notes Differential Diagnosis? MDM Differential Abdominal Pain Women: Appendicitis, Cholecystitis, diverticulosis, ischemic bowel, pancreatitis, hepatitis, UTI, gastroenteritis, AAA, incarcerated hernia, bowel obstruction, constipation, inflammatory bowel, hepatitis, peptic ulcer disease, splenic infarction, perforated viscus, vulvitis, ovarian torsion, PID, kidney stone, placenta abruption... This is not meant to be an all-inclusive list EKG interpreted by me (3pts min.)? yes X-rays interpreted by me (1pt min.)? yes CT interpreted by me (1pt min.)? no U/S interpreted by me (1pt. min.)? no What testing was considered but not performed? (CT, X-rays, U/S, labs)? Why? none What meds were considered but not given? Why? none Did you discuss the management of the patient with other professionals? none Did you reconcile home meds? no Was smoking cessation discussed for >3mins.? yes Was critical care preformed (if so, how long)? no Were there social determinants of health that impacted care today? How? (Homelessness, low income, unemployed, alcoholism, drug addiction, transportation, low edu. Level, literacy, decrease access to med. care, [facility], rehab)? none Was there de-escalation of care discussed even if they declined? (Discuss DNR or withdrawal of care, Hospice)? no What co-morbidities impacted this encounter? (DM, HTN, Smoking, COPD, CAD, Cancer, CVA, Hep., AIDS, mental health diagnosis, sleep apnea, morbid obesity)? COPD, oxygen dependant, htn Was patient admitted / discharged? @Upon arrival patient was placed into room 4. A thorough history and physical exam was performed. It patient was given a DuoNeb breathing treatment due to her wheezing. Laboratory studies are conducted. Hemoglobin is 8.3 however patient denies any active black or bloody stools. AST and ALTs are mildly elevated however improved from previous values. I did perform an ultrasound of the patient's right upper quadrants. Demonstrate gall bladder polyp however no signs of cholecystitis or cholelithiasis. Results are discussed with the patient. She does have increased work of breathing and I did recommend admission for her worker breathing. Patient refused stating that this is her normal baseline breathing and she feels comfortable going home on outpatient steroids and antibiotics. Patient will follow up with her primary care physician for further evaluation of her epigastric discomfort. I recommended a HIDA. Patient also needs workup for her anemia. She was agreeable to do this all outpatient. I recommended that she come back to the emergency room and should she agree to admission. Patient agreeable discharged home in stable condition Undiagnosed new problem with uncertain prognosis? yes Drug Therapy requiring intensive monitoring for toxicity (Heparin, Nitro, Insulin, Cardizem)? no Were any procedures done? no Diagnosis/symptom? acute epigastric pain Acute, or Chronic, or Acute on Chronic? acute on chronic Uncomplicated (without systemic symptoms) or Complicated (systemic symptoms)? complicated Side effects of treatment? no Exacerbation, Progression, or Severe Exacerbation] progression Poses a threat to life or bodily function? no (Sana Langley) - Lab Data Lab Results 07/29/22 07/29/22 07/29/22 Range/Units 14:19 15:11 15:11 WBC 9.2 (3.8-10.6) k/uL RBC 3.29 L (3.80-5.40) m/uL Hgb 8.3 L (11.4-16.0) gm/dL Hct 27.0 L (34.0-46.0) % MCV 81.9 (80.0-100.0) fL MCH 25.3 (25.0-35.0) pg MCHC 30.9 L (31.0-37.0) g/dL RDW 15.8 H (11.5-15.5) % Plt Count 347 (150-450) k/uL MPV 8.6 Neutrophils % 78 % Lymphocytes % 15 % Monocytes % 4 % Eosinophils % 0 % Basophils % 0 % Neutrophils # 7.2 (1.3-7.7) k/uL Lymphocytes # 1.4 (1.0-4.8) k/uL Monocytes # 0.4 (0-1.0) k/uL Eosinophils # 0.0 (0-0.7) k/uL Basophils # 0.0 (0-0.2) k/uL Hypochromasia Marked PT 9.9 (9.0-12.0) sec INR 0.9 (<1.2) APTT 21.9 L (22.0-30.0) sec Sodium (137-145) mmol/L Potassium (3.5-5.1) mmol/L Chloride (98-107) mmol/L Carbon Dioxide (22-30) mmol/L Anion Gap mmol/L BUN (7-17) mg/dL Creatinine (0.52-1.04) mg/dL Est GFR (CKD-EPI)AfAm (>60 ml/min/1.73 sqM) Est GFR (CKD-EPI)NonAf (>60 ml/min/1.73 sqM) Glucose (74-99) mg/dL Calcium (8.4-10.2) mg/dL Magnesium (1.6-2.3) mg/dL Total Bilirubin (0.2-1.3) mg/dL AST (14-36) U/L ALT (4-34) U/L Alkaline Phosphatase (38-126) U/L Troponin I (0.000-0.034) ng/mL Total Protein (6.3-8.2) g/dL Albumin (3.5-5.0) g/dL Influenza Type A (PCR) Not Detected (Not Detectd) Influenza Type B (PCR) Not Detected (Not Detectd) RSV (PCR) Not Detected (Not Detectd) SARS-CoV-2 (PCR) Not Detected (Not Detectd) 07/29/22 07/29/22 Range/Units 15:11 15:11 WBC (3.8-10.6) k/uL RBC (3.80-5.40) m/uL Hgb (11.4-16.0) gm/dL Hct (34.0-46.0) % MCV (80.0-100.0) fL MCH (25.0-35.0) pg MCHC (31.0-37.0) g/dL RDW (11.5-15.5) % Plt Count (150-450) k/uL MPV Neutrophils % % Lymphocytes % % Monocytes % % Eosinophils % % Basophils % % Neutrophils # (1.3-7.7) k/uL Lymphocytes # (1.0-4.8) k/uL Monocytes # (0-1.0) k/uL Eosinophils # (0-0.7) k/uL Basophils # (0-0.2) k/uL Hypochromasia PT (9.0-12.0) sec INR (<1.2) APTT (22.0-30.0) sec Sodium 139 (137-145) mmol/L Potassium 4.2 (3.5-5.1) mmol/L Chloride 100 (98-107) mmol/L Carbon Dioxide 32 H (22-30) mmol/L Anion Gap 7 mmol/L BUN 13 (7-17) mg/dL Creatinine 0.57 (0.52-1.04) mg/dL Est GFR (CKD-EPI)AfAm >90 (>60 ml/min/1.73 sqM) Est GFR (CKD-EPI)NonAf >90 (>60 ml/min/1.73 sqM) Glucose 160 H (74-99) mg/dL Calcium 8.7 (8.4-10.2) mg/dL Magnesium 2.3 (1.6-2.3) mg/dL Total Bilirubin 0.2 (0.2-1.3) mg/dL AST 37 H (14-36) U/L ALT 65 H (4-34) U/L Alkaline Phosphatase 154 H (38-126) U/L Troponin I <0.012 (0.000-0.034) ng/mL Total Protein 6.7 (6.3-8.2) g/dL Albumin 4.0 (3.5-5.0) g/dL Influenza Type A (PCR) (Not Detectd) Influenza Type B (PCR) (Not Detectd) RSV (PCR) (Not Detectd) SARS-CoV-2 (PCR) (Not Detectd) - EKG Data EKG Comments: EKG demonstrates sinus rhythm rate of 79. NV interval 132. QRS 88. QTC of 367. No acute ST segment elevations or depressions (Sana Langley) Disposition <Anish Lynn - Last Filed: 07/29/22 14:18> Is patient prescribed a controlled substance at d/c from ED?: No Time of Disposition: 18:55 <Sana Langley - Last Filed: 08/07/22 21:40> Clinical Impression: COPD exacerbation, Anemia, Transaminitis Disposition: HOME SELF-CARE Condition: Stable Instructions (If sedation given, give patient instructions): COPD (Chronic Obstructive Pulmonary Disease) (ED), Anemia (ED) Additional Instructions: Your doctor needs to do further workup of your anemia to include iron and vitamin deficiencies. They also need to do a HIDA scan for your epigastric pain. Take your antibiotics and steroids as directed and return for any new or worsening symptoms Referrals: Lurdes Gunderson MD [Primary Care Provider] - 1-2 days
--- NOTE | 2022-07-29 14:53 | XR ---
EXAMINATION TYPE: XR chest 2V DATE OF EXAM: 07/29/2022 2:48 PM COMPARISON: Chest radiographs from 07/26/2022 TECHNIQUE: XR chest 2V Frontal and lateral views of the chest. CLINICAL INDICATION:Female, 71 years old with history of difficulty breathing; FINDINGS: Lungs/Pleura: There is flattening of the diaphragm with increased lucency of the lungs. No evidence o f pneumothorax, pleural effusion or focal consolidation. Chronic interstitial changes. Pulmonary vascularity: Unremarkable. Heart/mediastinum: Cardiomediastinal silhouette is unremarkable. Atherosclerotic calcifications are seen in the aorta. Musculoskeletal: No acute osseous pathology. IMPRESSION: 1. Chronic interstitial changes without evidence for acute process. No significant change from prior examination. 2. COPD changes.
[2022-07-29 15:24] LABS: Basophils % (A) 0 %; Eosinophils % (A) 0 %; HGB 8.3 gm/dL (11.4-16.0); Hypochromasia Marked; Lymphocytes # (A) 1.4 k/uL (1.0-4.8); Lymphocytes % (A) 15 %; MCH 25.3 pg (25.0-35.0); MCHC 30.9 g/dL (31.0-37.0); MCV 81.9 fL (80.0-100.0); Mean Platelet Volume 8.6; Monocytes # (A) 0.4 k/uL (0-1.0); Monocytes % (A) 4 %; Neutrophils # (A) 7.2 k/uL (1.3-7.7); Neutrophils % (A) 78 %; Platelet Count 347 k/uL (150-450); RBC 3.29 m/uL (3.80-5.40); RDW 15.8 % (11.5-15.5); WBC 9.2 k/uL (3.8-10.6)
[2022-07-29 15:46] LABS: INR 0.9 (<1.2); Prothrombin Time 9.9 sec (9.0-12.0)
[2022-07-29 15:47] LABS: ALT 65 U/L (4-34); AST 37 U/L (14-36); African American GFR (CKD) >90 (>60 ml/min/1.73 sqM); Alkaline Phosphatase 154 U/L (38-126); Anion Gap 7 mmol/L; Blood Urea Nitrogen 13 mg/dL (7-17); Calcium 8.7 mg/dL (8.4-10.2); Carbon Dioxide 32 mmol/L (22-30); Chloride 100 mmol/L (98-107); Glucose 160 mg/dL (74-99); Magnesium 2.3 mg/dL (1.6-2.3); Non-African American GFR(CKD) >90 (>60 ml/min/1.73 sqM); Potassium 4.2 mmol/L (3.5-5.1); Sodium 139 mmol/L (137-145); Total Bilirubin 0.2 mg/dL (0.2-1.3); Total Protein 6.7 g/dL (6.3-8.2)
[2022-07-29 15:49] LABS: Partial Thromboplastin Time 21.9 sec (22.0-30.0)
[2022-07-29] MEDS ORDERED: IPRATROPIUM-ALBUTEROL 3 ML NEB INHALATION STA (17:17)
--- NOTE | 2022-07-29 17:39 | US ---
EXAMINATION TYPE: US abdomen limited DATE OF EXAM: 07/29/2022 COMPARISON: CT: 03/01/21 CLINICAL HISTORY: ruq. RUQ pain x 8 months TECHNIQUE: Multiple sonographic images of the right upper quadrant are obtained. *Limited due to patient being short of breath FINDINGS: EXAM MEASUREMENTS: Liver Length: 15.6 cm Gallbladder Wall: 0.24 cm CBD: 0.34 cm Right Kidney: 9.1 x 4.6 x 4.4 cm CHOKER SETTER NOTES: Pancreas: Parts visualized appear wnl Liver: wnl Gallbladder: Polyp seen in the anterior wall measuring 0.5 x 0.3 x 0.3cm Evidence for sonographic Short's sign: No CBD: wnl Right Kidney: wnl IMPRESSION: Small gallbladder polyp. No gallstones or dilated ducts.
[2022-07-29] MEDS ORDERED: methylPREDNISolone SOD SUCCI 125 MG/2 ML VIAL IM ONE (18:09)
[2022-07-29 19:08] VITALS: BP 136/84; PULSE 77; RESP 18
== END 2022-07-29 19:08 | disposition home or self-care (01) ==
LOC: EC 14:05
DX: J44.1 Chronic obstructive pulmonary disease with (acute) exacerbation (principal); D64.9 Anemia, unspecified; R74.01 Elevation of levels of liver transaminase levels; K21.9 Gastro-esophageal reflux disease without esophagitis; I10 Essential (primary) hypertension; F41.9 Anxiety disorder, unspecified; F17.200 Nicotine dependence, unspecified, uncomplicated; Z79.899 Other long term (current) drug therapy; Z20.822 Contact with and (suspected) exposure to COVID-19
CPT/HCPCS: 36415; 94640; 93005; 80053; 83735; 84484; 85025; 85610; 85730; 87636; 71046; 76705; 99285; 96372; J2930

== ENCOUNTER → 2022-08-09 | Outpatient (CLI) | payer MEDICARE, BC ==
[2022-08-09 10:35] LABS: Basophils # (A) 0.04 X 10*3/uL (0.00-0.10); Basophils % (A) 0.3 %; Eosinophils # (A) 0.01 X 10*3/uL (0.04-0.35); Eosinophils % (A) 0.1 %; HCT 28.1 % (37.2-46.3); HGB 8.2 g/dL (12.0-15.0); Immature Grans, Automated 0.7 %; Lymphocytes # (A) 0.88 X 10*3/uL (0.90-5.00); Lymphocytes % (A) 5.9 %; MCH 24.1 pg (27.0-32.0); MCHC 29.2 g/dL (32.0-37.0); MCV 82.6 fL (80.0-97.0); Mean Platelet Volume 10.7 fL (9.5-12.2); Monocytes # (A) 0.49 X 10*3/uL (0.20-1.00); Monocytes % (A) 3.3 %; NRBC Per 100 WBC 0 /100 WBCS (0.0-0.0); Neutrophils # (A) 13.29 X 10*3/uL (1.80-7.70); Neutrophils % (A) 89.7 %; Platelet Count 520 X 10*3/uL (140-440); RDW 16.5 % (11.5-14.5); Reticulocyte % 2.38 % (0.10-1.80); WBC 14.82 X 10*3/uL (4.50-10.00)
[2022-08-09 19:24] LABS: % Iron Saturation 3.31 (12.00-45.00)
== END | disposition home or self-care (01) ==
LOC: LABWHC1 07:15
PROVIDERS: ATTEND Internal Medicine Critical Care Medicine
DX: J44.9 Chronic obstructive pulmonary disease, unspecified (principal)
CPT/HCPCS: 36415; 82607; 82728; 82746; 83540; 83550; 85025; 85045

== ENCOUNTER → 2022-10-06 | Outpatient (CLI) | payer MEDICARE, BC ==
[2022-10-06 14:13] LABS: African American GFR (CKD) >90 (>60 ml/min/1.73 sqM); Blood Urea Nitrogen 16 mg/dL (7-17); Non-African American GFR(CKD) >90 (>60 ml/min/1.73 sqM)
--- NOTE | 2022-10-06 16:09 | CT ---
EXAMINATION TYPE: CT angio abdomen DATE OF EXAM: 10/06/2022 2:51 PM COMPARISON: CT abdomen March 01, 2021 HISTORY: Epigastric pain CT DLP: 669.8 mGycm Automated exposure control for dose reduction was used. TECHNIQUE: Performed without oral and without and with IV Contrast, patient injected with 100 mL of Isovue 370. 3D reconstructed images are created on an independent workstation and reviewed.. Findings: Vascular: Moderate to severe calcified plaque of the aorta extends into branch vessels. There is sign ificant narrowing in the proximal right renal artery coronal image 74 for reference due to mixed plaq ue along the inferior portion. 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 No significant stenosis in the SMA or left renal artery. Patent MARIA LUZ. Possible focal chronic dissection infrarenal abdominal aorta axial image 88 with linear density noted. Some ectasia is seen without greater than 3.0 cm dilatation. LUNG BASES: Mild bibasilar linear scarring and/or atelectasis. LIVER/GB: No significant abnormality is appreciated. PANCREAS: No significant abnormality is seen. SPLEEN: No significant abnormality is seen. ADRENALS: No significant abnormality is seen. KIDNEYS: No renal stones are seen bilaterally. Satisfactory symmetric cortical medullary uptake. No h ydronephrosis seen bilaterally. BOWEL: Slightly suboptimal evaluation without enteric contrast but no suspicious small or large bowel dilatation. LYMPH NODES: No greater than 1cm abdominal lymph nodes are appreciated. OSSEOUS STRUCTURES: No significant abnormality is seen. OTHER: No significant additional abnormality is seen. IMPRESSION: 1. 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 Correlate clinically and follow-up advised.
== END | disposition home or self-care (01) ==
LOC: RADCTMAIN 13:32
PROVIDERS: ATTEND Family Medicine
DX: I70.1 Atherosclerosis of renal artery (principal); I77.4 Celiac artery compression syndrome
CPT/HCPCS: 82565; 84520; 74175; 36415; Q9967

== ENCOUNTER 2022-11-01 12:08 | Emergency (ER) | payer MEDICARE, BC ==
[2022-11-01 12:21] VITALS: BP 110/65; RESP 30; TEMP 98.3
[2022-11-01] MEDS ORDERED: SODIUM CHLORIDE 0.9% 1,000 ML IV STA (12:29)
[2022-11-01] MEDS ORDERED: methylPREDNISolone SOD SUCCI 125 MG/2 ML VIAL IV STA (12:29)
[2022-11-01] MEDS ORDERED: IPRATROPIUM-ALBUTEROL 3 ML NEB INHALATION STA ×2 (12:29)
--- NOTE | 2022-11-01 12:31 | ED ---
General Adult HPI - General Chief complaint: Shortness of Breath Stated complaint: SOB Time Seen by Provider: 11/01/22 12:24 Source: patient, RN notes reviewed Mode of arrival: wheelchair Limitations: no limitations - History of Present Illness Initial comments: Patient is a pleasant 72-year-old female presenting to the emergency department with concerns with difficulty breathing. Onset of symptoms was past couple of days. Patient does have productive cough. No fever. Patient does have history of similar symptoms previously associated with COPD. No leg pain or leg swelling. - Related Data Home Medications Medication Instructions Recorded Confirmed Albuterol Nebulized [Ventolin 2.5 mg INHALATION RT-QID 07/13/20 11/01/22 Nebulized] Budesonide [Pulmicort] 0.5 mg INHALATION RT-BID 07/13/20 11/01/22 Formoterol Fumarate [Perforomist] 20 mcg INHALATION RT-BID 07/13/20 11/01/22 Omeprazole 20 mg PO DAILY 07/13/20 11/01/22 PARoxetine HCL 30 mg PO DAILY 07/13/20 11/01/22 Triamterene/Hydrochlorothiazid 1 tab PO DAILY 07/13/20 11/01/22 [Triamterene-Hctz 37.5-25 mg Tb] Yupelri 175 mcg INHALATION RT-DAILY 07/13/20 11/01/22 Atorvastatin [Lipitor] 40 mg PO DAILY 10/20/21 11/01/22 Clopidogrel [Plavix] 75 mg PO DAILY 04/05/22 11/01/22 busPIRone HCL [Buspar] 7.5 mg PO DAILY 04/05/22 11/01/22 Aspirin EC [Ecotrin Low Dose] 81 mg PO DAILY 11/01/22 11/01/22 Ferrous Sulfate [Feosol] 325 mg PO DAILY 11/01/22 11/01/22 rOPINIRole HCL [rOPINIRole HCL ER 2 mg PO BID 11/01/22 11/01/22 (XL)] Previous Rx's Medication Instructions Recorded Azithromycin [Zithromax Z Pack] 250 mg PO DAILY #6 tab 11/01/22 predniSONE [Deltasone] 20 mg PO BID #10 tab 11/01/22 Allergies Allergy/AdvReac Type Severity Reaction Status Date / Time No Known Allergies Allergy Verified 11/01/22 13:08 Review of Systems ROS Statement: Those systems with pertinent positive or pertinent negative responses have been documented in the HPI. ROS Other: All systems not noted in ROS Statement are negative. Constitutional: Denies: fever, chills Eyes: Denies: eye pain ENT: Denies: ear pain Respiratory: Reports: as per HPI, cough, dyspnea Cardiovascular: Denies: chest pain Endocrine: Reports: fatigue Gastrointestinal: Denies: abdominal pain Genitourinary: Denies: urgency Musculoskeletal: Denies: back pain Skin: Denies: rash Neurological: Denies: weakness Past Medical History Past Medical History: Cancer, COPD, GERD/Reflux, Hypertension Additional Past Medical History / Comment(s): RIGHT CAROTID 80% BLOCK (SURGERY DELAYED DUE TO RESP STATUS). O2 4-5 L use 13/02. RESTLESS LEGS. Hx skin cancer multiple times. History of Any Multi-Drug Resistant Organisms: None Reported Past Surgical History: Section, Tonsillectomy Additional Past Surgical History / Comment(s): Growth removed from throat. Past Anesthesia/Blood Transfusion Reactions: No Reported Reaction Past Psychological History: Anxiety Smoking Status: Current every day smoker Past Alcohol Use History: Occasional Past Drug Use History: None Reported - Past Family History Father Family Medical History: Myocardial Infarction ([place]) Additional Family Medical History / Comment(s): at age 29 of [place]. Mother Family Medical History: Cancer, CVA/TIA Additional Family Medical History / Comment(s): Breast cancer, passed at age 83. General Exam Limitations: no limitations General appearance: alert Head exam: Present: normocephalic Eye exam: Present: normal appearance Respiratory exam: Present: respiratory distress, wheezes, decreased breath sounds, other (Pursed lip breathing) Cardiovascular Exam: Present: regular rate, normal rhythm GI/Abdominal exam: Present: soft. Absent: tenderness Extremities exam: Present: normal inspection. Absent: pedal edema, calf tenderness Neurological exam: Present: alert Psychiatric exam: Present: normal affect, normal mood Skin exam: Present: normal color Course Vital Signs 11/01/22 11/01/22 11/01/22 12:19 12:34 12:42 Temperature 98.3 F Pulse Rate 66 81 80 Respiratory 30 H Rate Blood Pressure 110/65 O2 Sat by Pulse 93 L Oximetry EKG Findings - EKG Results: EKG: interpreted by ERMD (Prominent T waves), sinus rhythm, normal axis, normal QRS Medical Decision Making - Medical Decision Making Was pt. sent in by a medical professional or institution (DAMON Casper, PRESERVATIONIST, urgent ca re, hospital, or shelter...) When possible be specific @ -[No] Did you speak to anyone other than the patient for history (EMS, parent, family, police, friend...)? What history was obtained from this source @ -[No] Did you review nursing and triage notes (agree or disagree)? Why? @ -[I reviewed and agree with nursing and triage notes] Were old charts reviewed (outside hosp., previous admission, EMS record, old EKG, old radiological studies, urgent care reports/EKG's, shelter records)? Report findings @ -[No old charts were reviewed] Differential Diagnosis (chest pain, altered mental status, abdominal pain women, abdominal pain men, vaginal bleeding, weakness, fever, dyspnea, syncope, headache, dizziness, GI bleed, back pain, seizure, CVA, palpatations, mental health)? @ -Differential Dyspnea: Coronary syndrome, arrhythmia, tamponade, asthma, COPD, pulmonary embolism, pneumonia, pneumothorax, pulmonary effusion, anaphylaxis, diabetic ketoacidosis, flailed chest, pulmonary contusion, diaphragmatic rupture, anemia, neuromuscular, this is not meant to be an all-inclusive list. EKG interpreted by me (3pts min.). @ -[As above] X-rays interpreted by me (1pt min.). @ -Chest x-ray without acute findings CT interpreted by me (1pt min.). @ -[None done] U/S interpreted by me (1pt. min.). @ -[None done] What testing was considered but not performed or refused? (CT, X-rays, U/S, labs)? Why? @ -[None] What meds were considered but not given or refused? Why? @ -[None] Did you discuss the management of the patient with other professionals (professionals i.e. DAMON Casper, PRESERVATIONIST, lab, RT, psych nurse, drug abuse social worker, chain testing machine operator, teacher, aoc operations intelligence officer, residential case manager)? Give summary @ -[No] Was smoking cessation discussed for >3mins.? @ -[No] Was critical care preformed (if so, how long)? @ -[No] Were there social determinants of health that impacted care today? How? (Homelessness, low income, unemployed, alcoholism, drug addiction, transportation, low edu. Level, literacy, decrease access to med. care, group home, rehab)? @ -[No] Was there de-escalation of care discussed even if they declined (Discuss DNR or withdrawal of care, Hospice)? DNR status @ -[No] What co-morbidities impacted this encounter? (DM, HTN, Smoking, COPD, CAD, Cancer, CVA, ARF, Chemo, Hep., AIDS, mental health diagnosis, sleep apnea, morbid obesity)? @ -History of COPD with similar symptoms Was patient admitted / discharged? Hospital course, mention meds given and route, prescriptions, significant lab abnormalities, going to OR and other pertinent info. @ -Patient was advised admission however has refused. Patient does demonstrate medical decision making. Patient will leave AGAINST MEDICAL ADVICE. Patient was advised admission secondary to still having mild respiratory distress on reevaluation. Patient states she is always feels this way. He should does has family present who also encourages her to stay but agrees it is her decision. Patient does request steroids and antibiotics and this will be provided. Patient is agreeable to return if symptoms worsen. Undiagnosed new problem with uncertain prognosis? @ -[No] Drug Therapy requiring intensive monitoring for toxicity (Heparin, Nitro, Insulin, Cardizem)? @ -[No] Were any procedures done? @ -[No] Diagnosis/symptom? @ -Acute COPD Acute, or Chronic, or Acute on Chronic? @ -Acute on chronic Uncomplicated (without systemic symptoms) or Complicated (systemic symptoms)? @ -[default] Side effects of treatment? @ -[No] Exacerbation, Progression, or Severe Exacerbation? @ -Exacerbation Poses a threat to life or bodily function? How? (Chest pain, [place], [place], pneumonia, PE, COPD, DKA, ARF, appy, cholecystitis, CVA, Diverticulitis, Homicidal, Suicidal, threat to staff... and all critical care pts) @ -Patient has mild respiratory distress still and does potentially pose a threat to life if symptoms worsen - Lab Data Result diagrams: 11/01/22 12:33 11/01/22 12:33 Lab Results 11/01/22 11/01/22 11/01/22 Range/Units 12:33 12:33 12:33 WBC 9.5 (3.8-10.6) k/uL RBC 4.38 (3.80-5.40) m/uL Hgb 11.4 (11.4-16.0) gm/dL Hct 35.4 (34.0-46.0) % MCV 81.0 (80.0-100.0) fL MCH 26.0 (25.0-35.0) pg MCHC 32.1 (31.0-37.0) g/dL RDW 16.6 H (11.5-15.5) % Plt Count 416 (150-450) k/uL MPV 7.5 Neutrophils % 71 % Lymphocytes % 18 % Monocytes % 5 % Eosinophils % 3 % Basophils % 0 % Neutrophils # 6.8 (1.3-7.7) k/uL Lymphocytes # 1.7 (1.0-4.8) k/uL Monocytes # 0.4 (0-1.0) k/uL Eosinophils # 0.3 (0-0.7) k/uL Basophils # 0.0 (0-0.2) k/uL Anisocytosis Slight Microcytosis Slight Sodium 134 L (137-145) mmol/L Potassium 4.2 (3.5-5.1) mmol/L Chloride 94 L (98-107) mmol/L Carbon Dioxide 33 H (22-30) mmol/L Anion Gap 7 mmol/L BUN 13 (7-17) mg/dL Creatinine 0.69 (0.52-1.04) mg/dL Est GFR (CKD-EPI)AfAm >90 (>60 ml/min/1.73 sqM) Est GFR (CKD-EPI)NonAf 86 (>60 ml/min/1.73 sqM) Glucose 106 H (74-99) mg/dL Plasma Lactic Acid Froilan 1.2 (0.7-2.0) mmol/L Calcium 9.4 (8.4-10.2) mg/dL Magnesium 2.1 (1.6-2.3) mg/dL Total Bilirubin 0.2 (0.2-1.3) mg/dL AST 30 (14-36) U/L ALT 27 (4-34) U/L Alkaline Phosphatase 113 (38-126) U/L Total Protein 7.2 (6.3-8.2) g/dL Albumin 4.2 (3.5-5.0) g/dL Coronavirus (PCR) (Not Detectd) 11/01/22 Range/Units 13:32 WBC (3.8-10.6) k/uL RBC (3.80-5.40) m/uL Hgb (11.4-16.0) gm/dL Hct (34.0-46.0) % MCV (80.0-100.0) fL MCH (25.0-35.0) pg MCHC (31.0-37.0) g/dL RDW (11.5-15.5) % Plt Count (150-450) k/uL MPV Neutrophils % % Lymphocytes % % Monocytes % % Eosinophils % % Basophils % % Neutrophils # (1.3-7.7) k/uL Lymphocytes # (1.0-4.8) k/uL Monocytes # (0-1.0) k/uL Eosinophils # (0-0.7) k/uL Basophils # (0-0.2) k/uL Anisocytosis Microcytosis Sodium (137-145) mmol/L Potassium (3.5-5.1) mmol/L Chloride (98-107) mmol/L Carbon Dioxide (22-30) mmol/L Anion Gap mmol/L BUN (7-17) mg/dL Creatinine (0.52-1.04) mg/dL Est GFR (CKD-EPI)AfAm (>60 ml/min/1.73 sqM) Est GFR (CKD-EPI)NonAf (>60 ml/min/1.73 sqM) Glucose (74-99) mg/dL Plasma Lactic Acid Froilan (0.7-2.0) mmol/L Calcium (8.4-10.2) mg/dL Magnesium (1.6-2.3) mg/dL Total Bilirubin (0.2-1.3) mg/dL AST (14-36) U/L ALT (4-34) U/L Alkaline Phosphatase (38-126) U/L Total Protein (6.3-8.2) g/dL Albumin (3.5-5.0) g/dL Coronavirus (PCR) Not Detected (Not Detectd) Disposition Clinical Impression: COPD exacerbation Disposition: Left Against Medical Advice Instructions (If sedation given, give patient instructions): COPD (Chronic Obstructive Pulmonary Disease) (ED) Additional Instructions: Please do follow-up with primary care physician as soon as possible, preferably tomorrow. Return for increased difficulty breathing, fevers, worsening symptoms or any other concerns. You are leaving AGAINST MEDICAL ADVICE. Prescription has been sent to pharmacy. Prescriptions: predniSONE [Deltasone] 20 mg PO BID #10 tab Azithromycin [Zithromax Z Pack] 250 mg PO DAILY #6 tab Is patient prescribed a controlled substance at d/c from ED?: No Referrals: Lurdes Gunderson MD [Primary Care Provider] - 1-2 days Time of Disposition: 14:06
[2022-11-01 12:43] VITALS: PULSE 80
[2022-11-01 12:43] LABS: Anisocytosis Slight; Basophils % (A) 0 %; Eosinophils # (A) 0.3 k/uL (0-0.7); Eosinophils % (A) 3 %; HCT 35.4 % (34.0-46.0); HGB 11.4 gm/dL (11.4-16.0); Lymphocytes # (A) 1.7 k/uL (1.0-4.8); Lymphocytes % (A) 18 %; MCHC 32.1 g/dL (31.0-37.0); Mean Platelet Volume 7.5; Microcytosis Slight; Monocytes # (A) 0.4 k/uL (0-1.0); Monocytes % (A) 5 %; Neutrophils # (A) 6.8 k/uL (1.3-7.7); Neutrophils % (A) 71 %; Platelet Count 416 k/uL (150-450); RBC 4.38 m/uL (3.80-5.40); RDW 16.6 % (11.5-15.5); WBC 9.5 k/uL (3.8-10.6)
[2022-11-01 13:00] LABS: ALT 27 U/L (4-34); AST 30 U/L (14-36); African American GFR (CKD) >90 (>60 ml/min/1.73 sqM); Albumin 4.2 g/dL (3.5-5.0); Alkaline Phosphatase 113 U/L (38-126); Anion Gap 7 mmol/L; Blood Urea Nitrogen 13 mg/dL (7-17); Calcium 9.4 mg/dL (8.4-10.2); Carbon Dioxide 33 mmol/L (22-30); Chloride 94 mmol/L (98-107); Glucose 106 mg/dL (74-99); Magnesium 2.1 mg/dL (1.6-2.3); Non-African American GFR(CKD) 86 (>60 ml/min/1.73 sqM); Potassium 4.2 mmol/L (3.5-5.1); Sodium 134 mmol/L (137-145); Total Bilirubin 0.2 mg/dL (0.2-1.3); Total Protein 7.2 g/dL (6.3-8.2)
--- NOTE | 2022-11-01 13:12 | XR ---
EXAMINATION TYPE: XR chest 2V DATE OF EXAM: 11/01/2022 1:05 PM COMPARISON: Chest radiographs from 07/29/2022 TECHNIQUE: XR chest 2V Frontal and lateral views of the chest. CLINICAL INDICATION:Female, 72 years old with history of difficulty breathing; FINDINGS: Lungs/Pleura: Prominent interstitial lung markings are seen scattered throughout the lungs with lissy ening of the diaphragm and increased lucency of the lung apices. No evidence of focal consolidation, pneumothorax or pleural effusion. Pulmonary vascularity: Unremarkable. Heart/mediastinum: Cardiomediastinal silhouette is unremarkable. Musculoskeletal: No acute osseous pathology. IMPRESSION: 1. No acute cardiopulmonary disease process. 2. COPD changes.
== END 2022-11-01 14:45 | disposition left against medical advice (07) ==
LOC: EC 12:08
DX: J44.1 Chronic obstructive pulmonary disease with (acute) exacerbation (principal); I10 Essential (primary) hypertension; K21.9 Gastro-esophageal reflux disease without esophagitis; F41.9 Anxiety disorder, unspecified; F17.200 Nicotine dependence, unspecified, uncomplicated; Z20.822 Contact with and (suspected) exposure to COVID-19; Z79.82 Long term (current) use of aspirin; Z79.51 Long term (current) use of inhaled steroids; Z79.899 Other long term (current) drug therapy
CPT/HCPCS: 36415; 94640; 93005; 80053; 83605; 83735; 85025; 87635; 71046; 99285; 96374; 96361 ×2; J2930

== ENCOUNTER 2022-11-01 17:20 | Inpatient (IN) | payer MEDICARE, BC ==
[2022-11-01] MEDS ORDERED: SODIUM CHLORIDE 0.9% 1,000 ML IV STA (17:27)
[2022-11-01] MEDS ORDERED: IPRATROPIUM-ALBUTEROL 3 ML NEB INHALATION STA (17:27)
--- NOTE | 2022-11-01 17:31 | ED ---
General Adult HPI - General Stated complaint: SOB Time Seen by Provider: 11/01/22 17:21 Source: patient, EMS, RN notes reviewed, old records reviewed Mode of arrival: EMS Limitations: no limitations - History of Present Illness Initial comments: Patient is a pleasant 72-year-old female presenting to the emergency department for dyspnea and syncope. Patient was in the emergency department earlier and left AGAINST MEDICAL ADVICE. Patient states she still feels short of breath at this time and now regrets leaving. Patient was found in the garage by . Patient reportedly had a syncopal episode. Patient denies any headache or weakness. No chest or back pain. No abdominal pain. - Related Data Home Medications Medication Instructions Recorded Confirmed Albuterol Nebulized [Ventolin 2.5 mg INHALATION RT-QID 07/13/20 11/01/22 Nebulized] Budesonide [Pulmicort] 0.5 mg INHALATION RT-BID 07/13/20 11/01/22 Formoterol Fumarate [Perforomist] 20 mcg INHALATION RT-BID 07/13/20 11/01/22 Omeprazole 20 mg PO DAILY 07/13/20 11/01/22 PARoxetine HCL 30 mg PO DAILY 07/13/20 11/01/22 Triamterene/Hydrochlorothiazid 1 tab PO DAILY 07/13/20 11/01/22 [Triamterene-Hctz 37.5-25 mg Tb] Yupelri 175 mcg INHALATION RT-DAILY 07/13/20 11/01/22 Atorvastatin [Lipitor] 40 mg PO DAILY 10/20/21 11/01/22 Clopidogrel [Plavix] 75 mg PO DAILY 04/05/22 11/01/22 busPIRone HCL [Buspar] 7.5 mg PO DAILY 04/05/22 11/01/22 Aspirin EC [Ecotrin Low Dose] 81 mg PO DAILY 11/01/22 11/01/22 Azithromycin [Zithromax Z Pack] See Taper PO DIRECTED 11/01/22 11/01/22 Ferrous Sulfate [Feosol] 325 mg PO DAILY 11/01/22 11/01/22 rOPINIRole HCL [rOPINIRole HCL ER 2 mg PO BID 11/01/22 11/01/22 (XL)] Previous Rx's Medication Instructions Recorded predniSONE [Deltasone] 20 mg PO BID #10 tab 11/01/22 Allergies Allergy/AdvReac Type Severity Reaction Status Date / Time No Known Allergies Allergy Verified 11/01/22 13:08 Review of Systems ROS Statement: Those systems with pertinent positive or pertinent negative responses have been documented in the HPI. ROS Other: All systems not noted in ROS Statement are negative. Constitutional: Denies: fever Eyes: Denies: eye pain ENT: Denies: ear pain Respiratory: Reports: as per HPI, dyspnea Cardiovascular: Denies: chest pain Endocrine: Reports: fatigue Gastrointestinal: Denies: abdominal pain Genitourinary: Denies: dysuria Musculoskeletal: Denies: back pain Skin: Denies: rash Neurological: Denies: weakness Past Medical History Past Medical History: Cancer, COPD, GERD/Reflux, Hypertension Additional Past Medical History / Comment(s): RIGHT CAROTID 80% BLOCK (SURGERY DELAYED DUE TO RESP STATUS). O2 4-5 L use 13/02. RESTLESS LEGS. Hx skin cancer multiple times. History of Any Multi-Drug Resistant Organisms: None Reported Past Surgical History: Section, Tonsillectomy Additional Past Surgical History / Comment(s): Growth removed from throat. Past Anesthesia/Blood Transfusion Reactions: No Reported Reaction Past Psychological History: Anxiety Smoking Status: Current every day smoker Past Alcohol Use History: Occasional Past Drug Use History: None Reported - Past Family History Father Family Medical History: Myocardial Infarction ([place]) Additional Family Medical History / Comment(s): at age 29 of [place]. Mother Family Medical History: Cancer, CVA/TIA Additional Family Medical History / Comment(s): Breast cancer, passed at age 83. General Exam General appearance: alert Head exam: Present: atraumatic Eye exam: Present: other (Subconjunctival hemorrhage) Neck exam: Present: normal inspection. Absent: tenderness Respiratory exam: Present: respiratory distress, wheezes, decreased breath sounds Cardiovascular Exam: Present: regular rate, normal rhythm GI/Abdominal exam: Present: soft. Absent: tenderness Extremities exam: Present: normal inspection. Absent: pedal edema, calf tenderness Neurological exam: Present: alert, oriented X3, CN II-XII intact. Absent: motor sensory deficit Expanded Neurological exam: Present: protecting the airway Speech: Present: fluid speech Cranial nerves: EOM's Intact: Normal Motor strength exam: RUE: 5, LUE: 5, RLE: 5, LLE: 5 Eye Response: (4) open spontaneously Motor Response: (6) obeys commands Verbal Response: (5) oriented Psychiatric exam: Present: normal affect, normal mood Skin exam: Present: normal color Course Vital Signs 11/01/22 11/01/22 11/01/22 17:25 17:35 17:45 Pulse Rate 90 93 Respiratory 30 H Rate Blood Pressure 91/46 O2 Sat by Pulse 97 Oximetry Fraction of 50 Inspired Oxygen (FIO2) 11/01/22 18:00 Pulse Rate 98 Respiratory 30 H Rate Blood Pressure 106/71 O2 Sat by Pulse 98 Oximetry Fraction of Inspired Oxygen (FIO2) EKG Findings - EKG Results: EKG: interpreted by ERMD, sinus rhythm, normal axis, normal QRS, normal ST/T Medical Decision Making - Medical Decision Making Was pt. sent in by a medical professional or institution (, PA, CHILD DEVELOPMENT ASSISTANT, urgent care, hospital, or halfway...) When possible be specific @ -[No] Did you speak to anyone other than the patient for history (EMS, parent, family, police, friend...)? What history was obtained from this source @ -[No] Did you review nursing and triage notes (agree or disagree)? Why? @ -[I reviewed and agree with nursing and triage notes] Were old charts reviewed (outside hosp., previous admission, EMS record, old EKG, old radiological studies, urgent care reports/EKG's, halfway records)? Report findings @ -[No old charts were reviewed] Differential Diagnosis (chest pain, altered mental status, abdominal pain women, abdominal pain men, vaginal bleeding, weakness, fever, dyspnea, syncope, headache, dizziness, GI bleed, back pain, seizure, CVA, palpatations, mental health)? @ -Differential Syncope: Valvular disease, hypertrophic cardiomyopathy, pulmonary embolism, tamponade, tachycardia, bradycardia, [place], hypovolemia, hemorrhage, dissection, anemia, intracranial hemorrhage, seizure, hypoglycemia, carbon monoxide poisoning, this is not meant to be an all-inclusive list. EKG interpreted by me (3pts min.). @ -[As above] X-rays interpreted by me (1pt min.). @ -[None done] CT interpreted by me (1pt min.). @ -Reports reviewed U/S interpreted by me (1pt. min.). @ -[None done] What testing was considered but not performed or refused? (CT, X-rays, U/S, labs)? Why? @ -[None] What meds were considered but not given or refused? Why? @ -[None] Did you discuss the management of the patient with other professionals (professionals i.e. , PA, CHILD DEVELOPMENT ASSISTANT, lab, RT, psych nurse, social media designer, register of wills, teacher, supervisor dog license officer, child support case officer)? Give summary @ -Case was discussed with Dr. Pierson, who will admit covering Dr. Owusu Was smoking cessation discussed for >3mins.? @ -[No] Was critical care preformed (if so, how long)? @ -31 minutes critical care time Were there social determinants of health that impacted care today? How? (Homelessness, low income, unemployed, alcoholism, drug addiction, transportation, low edu. Level, literacy, decrease access to med. care, care home, rehab)? @ -[No] Was there de-escalation of care discussed even if they declined (Discuss DNR or withdrawal of care, Hospice)? DNR status @ -[No] What co-morbidities impacted this encounter? (DM, HTN, Smoking, COPD, CAD, Cancer, CVA, ARF, Chemo, Hep., AIDS, mental health diagnosis, sleep apnea, morbid obesity)? @ -[None] Was patient admitted / discharged? Hospital course, mention meds given and route, prescriptions, significant lab abnormalities, going to OR and other pertinent info. @ -Patient is improved on BiPAP. Patient will be admitted and agreeable at this time. Patient and family updated. Consult placed for pulmonary. Undiagnosed new problem with uncertain prognosis? @ -[No] Drug Therapy requiring intensive monitoring for toxicity (Heparin, Nitro, Insulin, Cardizem)? @ -[No] Were any procedures done? @ -[No] Diagnosis/symptom? @ -Respiratory failure, syncope Acute, or Chronic, or Acute on Chronic? @ -Acute, acute Uncomplicated (without systemic symptoms) or Complicated (systemic symptoms)? @ -Dyspnea complicated with syncopal episode Side effects of treatment? @ -[No] Exacerbation, Progression, or Severe Exacerbation? @ -Exacerbation of COPD Poses a threat to life or bodily function? How? (Chest pain, [place], [place], pneumonia, PE, COPD, DKA, ARF, appy, cholecystitis, CVA, Diverticulitis, Homicidal, Stoner icidal, threat to staff... and all critical care pts) @ -[No] - Lab Data Result diagrams: 11/01/22 17:35 11/01/22 17:35 Lab Results 11/01/22 11/01/22 11/01/22 Range/Units 17:35 17:35 17:35 WBC 11.4 H (3.8-10.6) k/uL RBC 4.26 (3.80-5.40) m/uL Hgb 10.9 L (11.4-16.0) gm/dL Hct 34.6 (34.0-46.0) % MCV 81.2 (80.0-100.0) fL MCH 25.7 (25.0-35.0) pg MCHC 31.6 (31.0-37.0) g/dL RDW 16.4 H (11.5-15.5) % Plt Count 392 (150-450) k/uL MPV 7.7 Neutrophils % 95 % Lymphocytes % 3 % Monocytes % 1 % Eosinophils % 0 % Basophils % 0 % Neutrophils # 10.8 H (1.3-7.7) k/uL Lymphocytes # 0.4 L (1.0-4.8) k/uL Monocytes # 0.1 (0-1.0) k/uL Eosinophils # 0.0 (0-0.7) k/uL Basophils # 0.0 (0-0.2) k/uL Anisocytosis Slight Microcytosis Slight PT 9.5 (9.0-12.0) sec INR 0.9 (<1.2) APTT 19.9 L (22.0-30.0) sec D-Dimer 0.98 H (<0.60) mg/L FEU Sodium 129 L (137-145) mmol/L Potassium 4.2 (3.5-5.1) mmol/L Chloride 90 L (98-107) mmol/L Carbon Dioxide 28 (22-30) mmol/L Anion Gap 11 mmol/L BUN 12 (7-17) mg/dL Creatinine 0.56 (0.52-1.04) mg/dL Est GFR (CKD-EPI)AfAm >90 (>60 ml/min/1.73 sqM) Est GFR (CKD-EPI)NonAf >90 (>60 ml/min/1.73 sqM) Glucose 155 H (74-99) mg/dL Plasma Lactic Acid Froilan (0.7-2.0) mmol/L Calcium 9.0 (8.4-10.2) mg/dL Total Bilirubin 0.2 (0.2-1.3) mg/dL AST 33 (14-36) U/L ALT 29 (4-34) U/L Alkaline Phosphatase 107 (38-126) U/L Troponin I (0.000-0.034) ng/mL Total Protein 7.1 (6.3-8.2) g/dL Albumin 4.3 (3.5-5.0) g/dL 11/01/22 11/01/22 Range/Units 17:35 17:35 WBC (3.8-10.6) k/uL RBC (3.80-5.40) m/uL Hgb (11.4-16.0) gm/dL Hct (34.0-46.0) % MCV (80.0-100.0) fL MCH (25.0-35.0) pg MCHC (31.0-37.0) g/dL RDW (11.5-15.5) % Plt Count (150-450) k/uL MPV Neutrophils % % Lymphocytes % % Monocytes % % Eosinophils % % Basophils % % Neutrophils # (1.3-7.7) k/uL Lymphocytes # (1.0-4.8) k/uL Monocytes # (0-1.0) k/uL Eosinophils # (0-0.7) k/uL Basophils # (0-0.2) k/uL Anisocytosis Microcytosis PT (9.0-12.0) sec INR (<1.2) APTT (22.0-30.0) sec D-Dimer (<0.60) mg/L FEU Sodium (137-145) mmol/L Potassium (3.5-5.1) mmol/L Chloride (98-107) mmol/L Carbon Dioxide (22-30) mmol/L Anion Gap mmol/L BUN (7-17) mg/dL Creatinine (0.52-1.04) mg/dL Est GFR (CKD-EPI)AfAm (>60 ml/min/1.73 sqM) Est GFR (CKD-EPI)NonAf (>60 ml/min/1.73 sqM) Glucose (74-99) mg/dL Plasma Lactic Acid Froilan 2.8 H* (0.7-2.0) mmol/L Calcium (8.4-10.2) mg/dL Total Bilirubin (0.2-1.3) mg/dL AST (14-36) U/L ALT (4-34) U/L Alkaline Phosphatase (38-126) U/L Troponin I <0.012 (0.000-0.034) ng/mL Total Protein (6.3-8.2) g/dL Albumin (3.5-5.0) g/dL Critical Care Time Critical Care Time: Yes Total Critical Care Time: 31 Disposition Clinical Impression: COPD exacerbation, Respiratory failure, Syncope Disposition: ADMITTED IP TO THIS [facility] Condition: Serious Is patient prescribed a controlled substance at d/c from ED?: No Referrals: Lurdes Gunderson MD [Primary Care Provider] - 1-2 days Time of Disposition: 20:26
[2022-11-01] MEDS ORDERED: LORazepam 2 MG/ML INJ IV STA ×2 (17:32→20:08)
[2022-11-01 17:57] LABS: Anisocytosis Slight; Basophils % (A) 0 %; Eosinophils % (A) 0 %; HCT 34.6 % (34.0-46.0); HGB 10.9 gm/dL (11.4-16.0); Lymphocytes # (A) 0.4 k/uL (1.0-4.8); Lymphocytes % (A) 3 %; MCH 25.7 pg (25.0-35.0); MCHC 31.6 g/dL (31.0-37.0); MCV 81.2 fL (80.0-100.0); Mean Platelet Volume 7.7; Microcytosis Slight; Monocytes # (A) 0.1 k/uL (0-1.0); Monocytes % (A) 1 %; Neutrophils # (A) 10.8 k/uL (1.3-7.7); Neutrophils % (A) 95 %; Platelet Count 392 k/uL (150-450); RBC 4.26 m/uL (3.80-5.40); RDW 16.4 % (11.5-15.5); WBC 11.4 k/uL (3.8-10.6)
[2022-11-01 18:22] LABS: INR 0.9 (<1.2); Prothrombin Time 9.5 sec (9.0-12.0)
[2022-11-01 18:26] LABS: ALT 29 U/L (4-34); AST 33 U/L (14-36); African American GFR (CKD) >90 (>60 ml/min/1.73 sqM); Albumin 4.3 g/dL (3.5-5.0); Alkaline Phosphatase 107 U/L (38-126); Anion Gap 11 mmol/L; Blood Urea Nitrogen 12 mg/dL (7-17); Carbon Dioxide 28 mmol/L (22-30); Chloride 90 mmol/L (98-107); Glucose 155 mg/dL (74-99); Non-African American GFR(CKD) >90 (>60 ml/min/1.73 sqM); Potassium 4.2 mmol/L (3.5-5.1); Sodium 129 mmol/L (137-145); Total Bilirubin 0.2 mg/dL (0.2-1.3); Total Protein 7.1 g/dL (6.3-8.2)
[2022-11-01 18:33] LABS: Partial Thromboplastin Time 19.9 sec (22.0-30.0)
--- NOTE | 2022-11-01 20:00 | CT ---
EXAMINATION TYPE: CT brain wo con CT DLP: 1178.4 mGycm, Automated exposure control for dose reduction was used. DATE OF EXAM: 11/01/2022 7:20 PM COMPARISON: None CLINICAL INDICATION:Female, 72 years old with history of syncope, fall TECHNIQUE: Brain: Axial CT images of the brain were obtained with coronal and sagittal reformats created and rev iewed. Contrast used: None. Oral contrast used: None. FINDINGS: Brain: Extra-axial spaces: No abnormal extra-axial fluid collections. Ventricular system: Within normal limits Cerebral parenchyma: Hypodensity within the left trevino radiata. No acute intraparenchymal hemorrhage or mass effect. The patricio-white junction is well differentiated. Cerebellum: Unremarkable. Mass effect: No evidence of midline shift. Intracranial vasculature: unremarkable Soft tissues:Right posterior scalp hematoma measuring up to 9.7 x 2.2 x 9.1 cm Calvarium/osseous structures: No depressed skull fracture. Paranasal sinuses and mastoid air cells: Mild scattered paranasal sinus disease. Visualized orbits: Orbital contents are intact. IMPRESSION: 1. No acute intracranial process. 2. Large right scalp hematoma. No evidence of fracture. 3. Remote left trevino radiata injury.
--- NOTE | 2022-11-01 20:07 | CT ---
EXAMINATION TYPE: CT angio chest CT DLP: 390.1 mGycm, Automated exposure control for dose reduction was used. DATE OF EXAM: 11/01/2022 7:21 PM COMPARISON: 10/15/2018 CLINICAL INDICATION:Female, 72 years old with history of syncope; dyspnea, syncope TECHNIQUE/CONTRAST: CTA scan of the thorax is performed with IV Contrast, patient injected with 100ml mL of Isovue 370, p ulmonary embolism protocol. MIP images are created and reviewed these are created on a separate work station.. FINDINGS: Pulmonary Artery: There is no evidence for a filling defect within the pulmonary vasculature to sugge st acute pulmonary embolism. The pulmonary artery is of normal size. Lungs/Pleura: No evidence of focal consolidation, pleural effusion or pneumothorax. Mild centrilobula r emphysema throughout the lungs. No focal consolidation, pneumothorax or pleural effusion. Atelectas is is seen within the left upper lobe along the major fissure. Airway: Large airways are patent. Heart: Heart is within normal limits for size. Mild coronary artery calcifications. Vasculature: No evidence of aortic aneurysm. Atherosclerosis of the arterial vasculature. Mediastinum: No gross evidence of adenopathy. Musculoskeletal: No acute osseous abnormalities Soft Tissues: Unremarkable. Lower neck: No significant findings. Upper Abdomen: No significant findings. IMPRESSION: 1. No evidence of pulmonary embolism. 2. Mild emphysema changes. 3. No evidence for acute process within the thorax to explain the patient's dyspnea/syncope. 4. Mild coronary artery calcifications.
[2022-11-01] MEDS ORDERED: NALOXONE 0.4 MG/ML 1 ML VIAL IVP PRN (20:27)
[2022-11-01] MEDS ORDERED: LORazepam 2 MG/ML INJ IV PRN (20:29)
[2022-11-01] MEDS: AZITHROMYCIN 500 MG in SODIUM CHLORIDE 0.9% 250 ML IVPB SCH (20:53)
[2022-11-01] MEDS: IPRATROPIUM-ALBUTEROL 3 ML NEB INHALATION PRN (23:37)
[2022-11-01 23:42] LABS: ABG Base Excess 7.5 mmol/L; ABG HCO3 32 mmol/L (21-25); ABG Oxygen Saturation 97.2 % (94-97); ABG PCO2 51 mmHg (35-45); ABG PH 7.41 (7.35-7.45); ABG PO2 84 mmHg (83-108); ABG TCO2 34 mmol/L (19-24); Allen Test Performed? Yes
[2022-11-02] MEDS: methylPREDNISolone SOD SUCCI 125 MG/2 ML VIAL IV SCH ×5 (00:02→23:29)
[2022-11-02 00:03] LABS: Anisocytosis Slight; HCT 31.8 % (34.0-46.0); HGB 10.4 gm/dL (11.4-16.0); MCH 26.5 pg (25.0-35.0); MCHC 32.7 g/dL (31.0-37.0); MCV 81.2 fL (80.0-100.0); Mean Platelet Volume 7.6; Microcytosis Slight; Platelet Count 396 k/uL (150-450); RBC 3.92 m/uL (3.80-5.40); RDW 16.6 % (11.5-15.5); WBC 13.8 k/uL (3.8-10.6)
--- NOTE | 2022-11-02 00:11 | P.HPIM ---
History of Present Illness H&P Date: 11/01/22 The patient is a 72-year-old female with a PMH of COPD, chronic hypoxic respiratory failure on 4 L nasal cannula oxygen continuously at home, hypertension, and hyperlipidemia who presents to the emergency room with complaints of shortness of breath and a syncopal episode. The patient reports that she's been experiencing gradually worsening shortness of breath over the last 2 weeks, which she reports feels similar to her prior COPD exacerbations. Of note, the patient initially presented to the hospital earlier in the day with complaints of shortness of breath but decided to leave AMA. Shortly after returning home, the patient was found in the garage by her having lost consciousness. The patient does not recall the episode and states that the last thing she remembers was tending to some food and then waking up on the ground. Attempted to contact the patient's via phone with no response. The patient denied any prior history of syncope. She did report having hit her head on the right posterior side during the episode to which she reports mild pain. At time of interview, patient reports that her breathing has improved significantly. She reports cough over the last few days which is now become productive of greenish phlegm. She denied experiencing chest discomfort, nausea, vomiting, diaphoresis. She denied weakness, numbness, tingling, visual disturbances, headaches, slurred speech, or facial asymmetry. Also denied palpitations, fever, chills. Chest CTA in the emergency room was negative for PE but revealed mild emphysematous changes. CT brain revealed a large right scalp hematoma without evidence of a fracture. EKG revealed sinus rhythm at 97 bpm with poor R-wave progression. Laboratory evaluation was remarkable for leukocytosis of 11.4, hemoglobin 10.9 (similar to baseline), ABG showing pCO2 51, sodium 129, chloride 90, lactic acid 2.8, troponin less than 0.012. ED documentation reviewed and case discussed with ED provider. Review of systems: Pertinent positives and negatives as discussed in HPI, a complete review of systems was performed and all other systems are negative. Physical examination: Vital signs reviewed General: non toxic, no distress, appears at stated age, overweight Derm: no unusual rashes/lesions, warm Head: atraumatic, normocephalic, symmetric Eyes: EOMI, no lid lag, anicteric sclera, pupils equal round reactive to light ENT: Nose and ears atraumatic Neck: No cervical lymphadenopathy, trachea midline, supple Mouth: no lip lesion, mucus membranes moist Cardiovascular: S1S2 reg, no murmur, positive dorsalis pedis pulse bilateral, no edema Lungs: Poor air entry bilaterally with scattered coarse breath sounds, no rales, no accessory muscle use Abdominal: soft, nontender to palpation, no guarding Ext: muscle strength 5 out of 5 in all 4 extremities grossly, no gross muscle atrophy, no contractures, Neuro: CN II-XI grossly intact, no gross focal neuro deficits Psych: Alert, oriented, appropriate affect Assessment: Acute COPD exacerbation with acute on chronic hypoxic and hypercapnic respiratory failure Syncope, unclear etiology Lactic acidosis Hypochloremic hyponatremia Chronic conditions: Hypertension, hyperlipidemia Imaging: Chest CTA in the emergency room was negative for PE but revealed mild emphysematous changes. CT brain revealed a large right scalp hematoma without evidence of a fracture. EKG revealed sinus rhythm at 97 bpm with poor R-wave progression. Data Review: Laboratory evaluation was remarkable for leukocytosis of 11.4, hemoglobin 10.9 (similar to baseline), ABG showing pCO2 51, sodium 129, chloride 90, lactic acid 2.8, troponin less than 0.012. Vital signs the emergency room were 91/46, respiratory rate 30, pulse 93, and SpO2 90% on 3 L of the cannula oxygen. Plan: Continue Solu-Medrol 60 mg every 6 hourly IV Continue DuoNeb's inhaled [id number] and when necessary Check pro calcitonin levels Supplemental oxygen Cardiac monitoring. Obtain Echocardiogram. Fall precautions. Gentle IV hydration with hyponatremia likely due to poor oral intake and hold patient's home diuretic doses Monitor lactic acidosis for resolution Insulin sliding scale and blood glucose monitoring Continue home medications: -Plavix 75 mg by mouth daily -BuSpar 7.5 mg by mouth daily -Pulmicort inhaled twice a day -Perforomist inhaler twice a day DVT prophylaxis: Lovenox subcu The patient is admitted with an anticipated greaer than 2 midnight stay for evaluation of COPD exacerbation CODE STATUS: Full Code Discussed with: Patient Anticipated discharge place: Home Past Medical History Past Medical History: Cancer, COPD, GERD/Reflux, Hypertension Additional Past Medical History / Comment(s): RIGHT CAROTID 80% BLOCK (SURGERY DELAYED DUE TO RESP STATUS). O2 4-5 L use 13/02. RESTLESS LEGS. Hx skin cancer multiple times. History of Any Multi-Drug Resistant Organisms: None Reported Past Surgical History: Section, Tonsillectomy Additional Past Surgical History / Comment(s): Growth removed from throat. Past Anesthesia/Blood Transfusion Reactions: No Reported Reaction Past Psychological History: Anxiety Smoking Status: Current every day smoker Past Alcohol Use History: Occasional Past Drug Use History: None Reported - Past Family History Father Family Medical History: Myocardial Infarction ([place]) Additional Family Medical History / Comment(s): at age 29 of [place]. Mother Family Medical History: Cancer, CVA/TIA Additional Family Medical History / Comment(s): Breast cancer, passed at age 83. Medications and Allergies Home Medications Medication Instructions Recorded Confirmed Type Albuterol Nebulized [Ventolin 2.5 mg INHALATION RT-QID 07/13/20 11/01/22 History Nebulized] Budesonide [Pulmicort] 0.5 mg INHALATION RT-BID 07/13/20 11/01/22 History Formoterol Fumarate [Perforomist] 20 mcg INHALATION RT-BID 07/13/20 11/01/22 History Omeprazole 20 mg PO DAILY 07/13/20 11/01/22 History PARoxetine HCL 30 mg PO DAILY 07/13/20 11/01/22 History Triamterene/Hydrochlorothiazid 1 tab PO DAILY 07/13/20 11/01/22 History [Triamterene-Hctz 37.5-25 mg Tb] Yupelri 175 mcg INHALATION RT-DAILY 07/13/20 11/01/22 History Atorvastatin [Lipitor] 40 mg PO DAILY 10/20/21 11/01/22 History Clopidogrel [Plavix] 75 mg PO DAILY 04/05/22 11/01/22 History busPIRone HCL [Buspar] 7.5 mg PO DAILY 04/05/22 11/01/22 History Aspirin EC [Ecotrin Low Dose] 81 mg PO DAILY 11/01/22 11/01/22 History Azithromycin [Zithromax Z Pack] See Taper PO DIRECTED 11/01/22 11/01/22 History Ferrous Sulfate [Feosol] 325 mg PO DAILY 11/01/22 11/01/22 History predniSONE [Deltasone] 20 mg PO BID #10 tab 11/01/22 11/01/22 Rx rOPINIRole HCL [rOPINIRole HCL ER 2 mg PO BID 11/01/22 11/01/22 History (XL)] Allergies Allergy/AdvReac Type Severity Reaction Status Date / Time No Known Allergies Allergy Verified 11/01/22 13:08 Physical Exam Vitals: Vital Signs Pulse Resp BP Pulse Ox FiO2 11/01/22 21:00 103 H 16 143/72 97 50 11/01/22 20:00 94 16 136/89 97 11/01/22 19:30 95 16 132/86 97 11/01/22 18:00 98 30 H 106/71 98 11/01/22 17:45 93 30 H 91/46 97 11/01/22 17:35 90 11/01/22 17:25 50 Intake and Output 11/01/22 11/01/22 11/01/22 06:59 14:59 22:59 Other: Weight 72.575 kg Results CBC & Chem 7: 11/01/22 23:46 11/01/22 17:35 Labs: Abnormal Lab Results - Last 24 Hours (Table) 11/01/22 11/01/22 11/01/22 Range/Units 17:35 17:35 17:35 WBC 11.4 H (3.8-10.6) k/uL Hgb 10.9 L (11.4-16.0) gm/dL RDW 16.4 H (11.5-15.5) % Neutrophils # 10.8 H (1.3-7.7) k/uL Lymphocytes # 0.4 L (1.0-4.8) k/uL APTT 19.9 L (22.0-30.0) sec D-Dimer 0.98 H (<0.60) mg/L FEU Sodium 129 L (137-145) mmol/L Chloride 90 L (98-107) mmol/L Glucose 155 H (74-99) mg/dL Plasma Lactic Acid Froilan (0.7-2.0) mmol/L 11/01/22 11/01/22 Range/Units 17:35 20:52 WBC (3.8-10.6) k/uL Hgb (11.4-16.0) gm/dL RDW (11.5-15.5) % Neutrophils # (1.3-7.7) k/uL Lymphocytes # (1.0-4.8) k/uL APTT (22.0-30.0) sec D-Dimer (<0.60) mg/L FEU Sodium (137-145) mmol/L Chloride (98-107) mmol/L Glucose (74-99) mg/dL Plasma Lactic Acid Froilan 2.8 H* 2.1 H* (0.7-2.0) mmol/L
[2022-11-02 00:25] LABS: African American GFR (CKD) >90 (>60 ml/min/1.73 sqM); Anion Gap 10 mmol/L; Blood Urea Nitrogen 14 mg/dL (7-17); Calcium 9.4 mg/dL (8.4-10.2); Carbon Dioxide 28 mmol/L (22-30); Chloride 93 mmol/L (98-107); Glucose 128 mg/dL (74-99); Non-African American GFR(CKD) >90 (>60 ml/min/1.73 sqM); Potassium 5.1 mmol/L (3.5-5.1); Sodium 131 mmol/L (137-145)
--- NOTE | 2022-11-02 00:55 | XR ---
EXAM: XR Chest, 1 View CLINICAL HISTORY: ITS.REASON XR Reason: sob TECHNIQUE: Frontal view of the chest. COMPARISON: No relevant prior studies available. FINDINGS: Lungs: Unremarkable. No consolidation. Pleural space: Unremarkable. No pneumothorax. Heart: Cardiomegaly. Mediastinum: Unremarkable. Bones/joints: Unremarkable. IMPRESSION: No acute findings in the chest.
[2022-11-02] MEDS: IPRATROPIUM-ALBUTEROL 3 ML NEB INHALATION PRN (02:57)
--- NOTE | 2022-11-02 03:05 | P.CNPUL ---
History of Present Illness Consult date: 11/02/22 Requesting physician: Rene South Reason for consult: dyspnea Chief complaint: shortness of breath History of present illness: I'm seeing this patient in new consultation today 11/02/2022 for an acute COPD exacerbation. Patient is a 72-year-old white female with past medical history significant for severe COPD with a baseline FEV1 54% of predicted, home oxygen dependence on 4 L nasal cannula, carotid artery stenosis, hypertension, hyperlipidemia, chronic anemia, restless leg syndrome, anxiety, current smoker. Patient presented to the emergency room yesterday evening for progressive shortn ess breath over the previous 2 days and a syncopal episode. Patient also reports a productive cough with green sputum. Denies any fever, hemoptysis, chest pain, heart palpitations. Patient was found down on the ground in the garage by her . Patient did apparently visit the emergency room earlier that day, and left AGAINST MEDICAL ADVICE. Brain CT without contrast showed no acute intracranial process, a large right scalp hematoma, and a remote left trevino radiata injury. patient does not remember events leading up to ending up on the ground. She denies any focal neurological deficits. ECG done on arrival showed normal sinus rhythm without obvious ischemic changes. Chest CTA on arrival showed no evidence of pulmonary embolism, mild emphysema changes, no evidence of an acute cardiopulmonary process to explain the patient's dyspnea. currently the patient is in the emergency room, sitting at the side of the stretcher, on 4 L nasal cannula, in no acute distress. Patient was trialed on a BiPAP with settings 10/5 and FiO2 50%. She did not tolerate this and ripped off the mask. A follow-up ABG done on 4 L nasal cannula showed a pO2 of 84, PCO2 of 51, pH of 7.41. patient's CBC on arrival showed a WBC count of 13.8, hemoglobin 10.4, hematocrit 31.8, platelets 396,000. Patient's BMP on arrival showed a sodium 131, potassium 5.1, chloride 93, serum CO2 28, BUN 14, creatinine 0.51, glucose 128. Patient's lactic acid was mildly elevated at 2.1. normal saline infusing at 75 mL per hour. patient is currently maintained on empiric azithromycin. patient is also receiving bronchodilators, budesonide inhalation, Pulmicort inhalation, and IV Solu-Medrol. patient was not checked for COVID-19 for influenza. vital signs are stable. Review of Systems REVIEW OF SYSTEMS: CONSTITUTIONAL: Denies any recent significant weight loss or weight gain. EYES: Denies change in vision. EARS, NOSE, MOUTH, THROAT: Denies headaches, denies sore throat. CARDIOVASCULAR: Denies chest pain, palpitations. patient did have a syncopal event RESPIRATORY:see HPI GASTROINTESTINAL: Denies change in appetite, abdominal pain, nausea and vomiting, or diarrhea GENITOURINARY: Denies hematuria, denies infections. MUSKULOSKELETAL: Denies pain, denies swelling. INTEGUMENTARY: Denies rash, denies eczema. NEUROLOGICAL: Denies recent memory loss, no recent seizure activity. PSYCHIATRIC: Denies anxiety, denies depression. HEMATOLOGIC/LYMPHATIC: Denies anemia, denies enlarged lymph node Past Medical History Past Medical History: Cancer, COPD, GERD/Reflux, Hypertension Additional Past Medical History / Comment(s): RIGHT CAROTID 80% BLOCK (SURGERY DELAYED DUE TO RESP STATUS). O2 4-5 L use 13/02. RESTLESS LEGS. Hx skin cancer multiple times. History of Any Multi-Drug Resistant Organisms: None Reported Past Surgical History: Section, Tonsillectomy Additional Past Surgical History / Comment(s): Growth removed from throat. Past Anesthesia/Blood Transfusion Reactions: No Reported Reaction Past Psychological History: Anxiety Smoking Status: Current every day smoker Past Alcohol Use History: Occasional Past Drug Use History: None Reported - Past Family History Father Family Medical History: Myocardial Infarction ([place]) Additional Family Medical History / Comment(s): at age 29 of [place]. Mother Family Medical History: Cancer, CVA/TIA Additional Family Medical History / Comment(s): Breast cancer, passed at age 83. Medications and Allergies Home Medications Medication Instructions Recorded Confirmed Type Albuterol Nebulized [Ventolin 2.5 mg INHALATION RT-QID 07/13/20 11/01/22 History Nebulized] Budesonide [Pulmicort] 0.5 mg INHALATION RT-BID 07/13/20 11/01/22 History Formoterol Fumarate [Perforomist] 20 mcg INHALATION RT-BID 07/13/20 11/01/22 History Omeprazole 20 mg PO DAILY 07/13/20 11/01/22 History PARoxetine HCL 30 mg PO DAILY 07/13/20 11/01/22 History Triamterene/Hydrochlorothiazid 1 tab PO DAILY 07/13/20 11/01/22 History [Triamterene-Hctz 37.5-25 mg Tb] Yupelri 175 mcg INHALATION RT-DAILY 07/13/20 11/01/22 History Atorvastatin [Lipitor] 40 mg PO DAILY 10/20/21 11/01/22 History Clopidogrel [Plavix] 75 mg PO DAILY 04/05/22 11/01/22 History busPIRone HCL [Buspar] 7.5 mg PO DAILY 04/05/22 11/01/22 History Aspirin EC [Ecotrin Low Dose] 81 mg PO DAILY 11/01/22 11/01/22 History Azithromycin [Zithromax Z Pack] See Taper PO DIRECTED 11/01/22 11/01/22 History Ferrous Sulfate [Feosol] 325 mg PO DAILY 11/01/22 11/01/22 History predniSONE [Deltasone] 20 mg PO BID #10 tab 11/01/22 11/01/22 Rx rOPINIRole HCL [rOPINIRole HCL ER 2 mg PO BID 11/01/22 11/01/22 History (XL)] Allergies Allergy/AdvReac Type Severity Reaction Status Date / Time No Known Allergies Allergy Verified 11/01/22 13:08 Physical Exam Vitals: Vital Signs Temp Pulse Resp BP Pulse Ox FiO2 11/02/22 01:00 95 16 134/71 93 L 11/02/22 00:00 112 H 16 116/64 93 L 11/01/22 23:52 97 11/01/22 23:37 99 11/01/22 23:00 104 H 16 138/78 91 L 11/01/22 22:37 98.7 F 105 H 30 H 95/70 89 L 11/01/22 22:26 101 H 30 H 100/61 89 L 11/01/22 22:00 104 H 16 125/74 90 L 11/01/22 21:00 103 H 16 143/72 97 50 11/01/22 20:00 94 16 136/89 97 11/01/22 19:30 95 16 132/86 97 11/01/22 18:00 98 30 H 106/71 98 11/01/22 17:45 93 30 H 91/46 97 11/01/22 17:35 90 11/01/22 17:25 50 Intake and Output 11/01/22 11/01/22 11/02/22 14:59 22:59 06:59 Other: Weight 72.575 kg GENERAL EXAM: Alert, [id number] female, comfortable in no apparent distress. HEAD: Normocephalic and atraumatic EYES: Normal reaction of pupils, equal size. NOSE: Clear with pink turbinates. THROAT: No erythema or exudates. NECK: No masses, no JVD. CHEST: No chest wall deformity. LUNGS: Equal air entry with diminished lung sounds throughout with a faint expiratory wheeze. no crackles, rhonchi or dullness. on 4 L nasal cannula. No conversational dyspnea or accessory muscle use.. CVS: S1 and S2 normal with no audible murmur, regular rhythm. No extra heart sounds. heart rate is 111 bpm. ABDOMEN: No hepatosplenomegaly, active bowel sounds, no guarding or rigidity. SPINE: No scoliosis or deformity SKIN: No rashes CENTRAL NERVOUS SYSTEM: No focal deficits, tone is normal in all 4 extremities. EXTREMITIES: There is no peripheral edema, clubbing, or cyanosis. Peripheral pulses are intact. Results - Laboratory Findings CBC and BMP: 11/01/22 23:46 11/01/22 23:46 ABG ABG pH 7.41 (7.35-7.45) 11/01/22 23:39 ABG pCO2 51 mmHg (35-45) H 11/01/22 23:39 ABG pO2 84 mmHg (83-108) 11/01/22 23:39 ABG O2 Saturation 97.2 % (94-97) H 11/01/22 23:39 PT/INR, D-dimer PT 9.5 sec (9.0-12.0) 11/01/22 17:35 INR 0.9 (<1.2) 11/01/22 17:35 D-Dimer 0.98 mg/L FEU (<0.60) H 11/01/22 17:35 Abnormal lab findings: Abnormal Labs 11/01/22 11/01/22 11/01/22 17:35 17:35 17:35 WBC 11.4 H Hgb 10.9 L Hct RDW 16.4 H Neutrophils # 10.8 H Lymphocytes # 0.4 L APTT 19.9 L D-Dimer 0.98 H ABG pCO2 ABG HCO3 ABG Total CO2 ABG O2 Saturation Sodium 129 L Chloride 90 L Creatinine Glucose 155 H Plasma Lactic Acid Rfoilan 11/01/22 11/01/22 11/01/22 17:35 20:52 23:39 WBC Hgb Hct RDW Neutrophils # Lymphocytes # APTT D-Dimer ABG pCO2 51 H ABG HCO3 32 H ABG Total CO2 34 H ABG O2 Saturation 97.2 H Sodium Chloride Creatinine Glucose Plasma Lactic Acid Froilan 2.8 H* 2.1 H* 11/01/22 11/01/22 11/01/22 23:46 23:46 23:46 WBC 13.8 H Hgb 10.4 L Hct 31.8 L RDW 16.6 H Neutrophils # Lymphocytes # APTT D-Dimer ABG pCO2 ABG HCO3 ABG Total CO2 ABG O2 Saturation Sodium 131 L Chloride 93 L Creatinine 0.51 L Glucose 128 H Plasma Lactic Acid Froilan 3.0 H* - Diagnostic Findings Chest x-ray: image reviewed CT scan - chest: image reviewed Assessment and Plan Assessment: acute exacerbation of patient's severe COPD, possibly related to acute tracheobronchitis. no evidence of pneumonia or focal consolidation on chest x- ray or chest CTA Acute on chronic hypoxemic and hypercapnic respiratory failure. patient normally wears 4 L nasal cannula at home. Patient was initially placed on BiPAP on arrival to the emergency room. She did not tolerate this, and is currently on 4 L nasal cannula. Syncope, currently under investigation. Carotid artery stenosis, a CT angiogram of the neck done on March 2021 showed an estimated 80% stenosis of the right ICA and 50% stenosis of the left ICA at that time hypertension Hyperlipidemia current tobacco dependence Chronic anemia plan: Patient's medication, labs, chest x-ray, chest CTA were reviewed Patient currently on 4 L per minute nasal cannula, which is the amount she uses at home. check COVID-19, influenza, RSV Check procalcitonin level currently receiving empiric azithromycin blood cultures pending continue bronchodilators, budesonide inhalation, formoterol inhalation, IV Solu- Medrol consult vascular surgery echocardiogram ordered anticoagulated on Lovenox GI prophylaxis with Protonix we will continue to follow I have personally seen and examined the patient, performed the documentation and the assessment and plan as written. Number of minutes spent on the visit:20 Time with Patient: Greater than 30
[2022-11-02] MEDS ORDERED: SODIUM CHLORIDE 0.9% 1,000 ML IV ONE (03:46)
[2022-11-02] MEDS ORDERED: BUDESONIDE 0.5 MG/2 ML NEBU INHALATION SCH (08:00)
[2022-11-02] MEDS: IPRATROPIUM-ALBUTEROL 3 ML NEB INHALATION SCH ×4 (08:19→21:53)
[2022-11-02] MEDS: FORMOTEROL FUMARATE 20 MCG/2 ML NEBU INHALATION SCH ×2 (08:20→21:53)
[2022-11-02] MEDS: BUDESONIDE 1 MG/2 ML NEBU INHALATION SCH ×2 (08:30→21:53)
[2022-11-02] MEDS: FERROUS SULFATE 325 MG TAB PO SCH (08:54)
[2022-11-02] MEDS: PARoxetine 10 MG TAB PO SCH (08:54)
[2022-11-02] MEDS: ASPIRIN 81 MG PO SCH (08:54)
[2022-11-02] MEDS: PANTOPRAZOLE 40 MG TABLET PO SCH (08:55)
[2022-11-02] MEDS: CLOPIDOGREL 75 MG TAB PO SCH (08:55)
[2022-11-02] MEDS: ATORVASTATIN 40 MG TAB PO SCH (08:55)
[2022-11-02] MEDS: busPIRone HCl 5 MG TAB PO SCH (08:55)
[2022-11-02] MEDS: ENOXAPARIN 40 MG/0.4 ML SYRINGE SQ SCH (08:56)
[2022-11-02 09:00] LABS: Glucose,Whole Blood 188 mg/dL (70-110)
[2022-11-02] MEDS: INSULIN ASPART (NovoLOG) 100 UNIT/ML VIAL SQ SCH ×4 (09:00→21:01)
--- NOTE | 2022-11-02 10:34 | P.GSCN ---
History of Present Illness Consult date: 11/02/22 Reason for Consult: syncope with history of carotid stenosis Requesting physician: Karlo Acharya History of present illness: This is a pleasant 72-year-old female with multiple comorbidities including COPD, hypertension, hyper lipidemia, restless leg syndrome, former smoker, and right carotid stenosis who presented to the emergency department following fall. Apparently patient was seen yesterday earlier in the day in the emergency department for shortness of breath and COPD complications. Patient left AGAINST MEDICAL ADVICE. She returned later in the evenings after her had found her surgery tech lying on the floor. Patient states she does not recall what happened. Daughter who is at the bedside stated that she had witnessed previously her mom standing at a counter and just falling down. She states that when she has fallen she has urinated herself and she will be gazing with a blank stare. Apparently patient had seen Dr. Fabian in the outpatient setting which he states she does not believe any testing was done. Vascular surgery was consulted by pulmonary team for syncope with a history of carotid stenosis. Patient follows with Dr. Kim and it was recommended back in that patient should undergo right carotid intervention for narrowing greater than 80%. Patient is seen Dr. Kim several times in the office and was scheduled for transfer carotid artery revascularization however each time patient had stated that her breathing was too bad and she would not undergo surgery. Patient denies any focal deficits, denies any weakness in bilateral upper or lower extremities, no slurred speech, visual changes or drooping of face. She denies any chest pain, has chronic shortness of breath and again cough. No fevers, chills, body aches, abdominal pain, nausea or vomiting. Patient has a long history of smoking, she states that she quit 2 months ago. She has a chronic productive cough, and wears home oxygen. Brain CT reported no acute intracranial process, large right scalp hematoma. No evidence of fracture. Remote left trevino radiata injury. Review of Systems A 14 point review systems was completed all pertinent positives and negatives as stated in the HPI. 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 O2 4-5 L use 13/02. RESTLESS LEGS. Hx skin cancer multiple times. History of Any Multi-Drug Resistant Organisms: None Reported Past Surgical History: Section, Tonsillectomy Additional Past Surgical History / Comment(s): Growth removed from throat. Past Anesthesia/Blood Transfusion Reactions: No Reported Reaction Past Psychological History: Anxiety Smoking Status: Current every day smoker Past Alcohol Use History: Occasional Past Drug Use History: None Reported - Past Family History Father Family Medical History: Myocardial Infarction (HI) Additional Family Medical History / Comment(s): at age 29 of HI. Mother Family Medical History: Cancer, CVA/TIA Additional Family Medical History / Comment(s): Breast cancer, passed at age 83. Medications and Allergies Home Medications Medication Instructions Recorded Confirmed Type Albuterol Nebulized [Ventolin 2.5 mg INHALATION RT-QID 07/13/20 11/01/22 History Nebulized] Budesonide [Pulmicort] 0.5 mg INHALATION RT-BID 07/13/20 11/01/22 History Formoterol Fumarate [Perforomist] 20 mcg INHALATION RT-BID 07/13/20 11/01/22 Hi story Omeprazole 20 mg PO DAILY 07/13/20 11/01/22 History PARoxetine HCL 30 mg PO DAILY 07/13/20 11/01/22 History Triamterene/Hydrochlorothiazid 1 tab PO DAILY 07/13/20 11/01/22 History [Triamterene-Hctz 37.5-25 mg Tb] Yupelri 175 mcg INHALATION RT-DAILY 07/13/20 11/01/22 History Atorvastatin [Lipitor] 40 mg PO DAILY 10/20/21 11/01/22 History Clopidogrel [Plavix] 75 mg PO DAILY 04/05/22 11/01/22 History busPIRone HCL [Buspar] 7.5 mg PO DAILY 04/05/22 11/01/22 History Aspirin EC [Ecotrin Low Dose] 81 mg PO DAILY 11/01/22 11/01/22 History Azithromycin [Zithromax Z Pack] See Taper PO DIRECTED 11/01/22 11/01/22 History Ferrous Sulfate [Feosol] 325 mg PO DAILY 11/01/22 11/01/22 History predniSONE [Deltasone] 20 mg PO BID #10 tab 11/01/22 11/01/22 Rx rOPINIRole HCL [rOPINIRole HCL ER 2 mg PO BID 11/01/22 11/01/22 History (XL)] Allergies Allergy/AdvReac Type Severity Reaction Status Date / Time No Known Allergies Allergy Verified 11/01/22 13:08 Surgical - Exam Vital Signs FiO2 50 11/01/22 17:25 General appearance: The patient is alert, oriented, appears in no acute distress. HET: Head is normocephalic. Right-sided hematoma. Pupils are equal and reactive. Right subconjunctiva hemorrhage Neck: Supple. Trachea midline. right sided carotid bruit. Heart: Regular. Lungs: Equal expansion, normal respiratory effort. Bilateral expiratory wheezes. Abdomen: Soft, nontender, nondistended. Extremities: Normal skin color and turgor. No cyanosis, rash, ulceration, clubbing, or edema. Peripheral radial pulses +2 bilaterally. Palpable PT bilaterally. Good capillary refill. Neurological: No focal deficits. Strength and sensation are grossly intact. Results - Labs 11/01/22 23:46 11/01/22 23:46 Abnormal Lab Results - Last 24 Hours (Table) 11/01/22 11/01/22 11/01/22 Range/Units 17:35 17:35 17:35 WBC 11.4 H (3.8-10.6) k/uL Hgb 10.9 L (11.4-16.0) gm/dL Hct (34.0-46.0) % RDW 16.4 H (11.5-15.5) % Neutrophils # 10.8 H (1.3-7.7) k/uL Lymphocytes # 0.4 L (1.0-4.8) k/uL APTT 19.9 L (22.0-30.0) sec D-Dimer 0.98 H (<0.60) mg/L FEU ABG pCO2 (35-45) mmHg ABG HCO3 (21-25) mmol/L ABG Total CO2 (19-24) mmol/L ABG O2 Saturation (94-97) % Sodium 129 L (137-145) mmol/L Chloride 90 L (98-107) mmol/L Creatinine (0.52-1.04) mg/dL Glucose 155 H (74-99) mg/dL POC Glucose (mg/dL) (70-110) mg/dL Plasma Lactic Acid Froilan (0.7-2.0) mmol/L 11/01/22 11/01/22 11/01/22 Range/Units 17:35 20:52 23:39 WBC (3.8-10.6) k/uL Hgb (11.4-16.0) gm/dL Hct (34.0-46.0) % RDW (11.5-15.5) % Neutrophils # (1.3-7.7) k/uL Lymphocytes # (1.0-4.8) k/uL APTT (22.0-30.0) sec D-Dimer (<0.60) mg/L FEU ABG pCO2 51 H (35-45) mmHg ABG HCO3 32 H (21-25) mmol/L ABG Total CO2 34 H (19-24) mmol/L ABG O2 Saturation 97.2 H (94-97) % Sodium (137-145) mmol/L Chloride (98-107) mmol/L Creatinine (0.52-1.04) mg/dL Glucose (74-99) mg/dL POC Glucose (mg/dL) (70-110) mg/dL Plasma Lactic Acid Froilan 2.8 H* 2.1 H* (0.7-2.0) mmol/L 11/01/22 11/01/22 11/01/22 Range/Units 23:46 23:46 23:46 WBC 13.8 H (3.8-10.6) k/uL Hgb 10.4 L (11.4-16.0) gm/dL Hct 31.8 L (34.0-46.0) % RDW 16.6 H (11.5-15.5) % Neutrophils # (1.3-7.7) k/uL Lymphocytes # (1.0-4.8) k/uL APTT (22.0-30.0) sec D-Dimer (<0.60) mg/L FEU ABG pCO2 (35-45) mmHg ABG HCO3 (21-25) mmol/L ABG Total CO2 (19-24) mmol/L ABG O2 Saturation (94-97) % Sodium 131 L (137-145) mmol/L Chloride 93 L (98-107) mmol/L Creatinine 0.51 L (0.52-1.04) mg/dL Glucose 128 H (74-99) mg/dL POC Glucose (mg/dL) (70-110) mg/dL Plasma Lactic Acid Froilan 3.0 H* (0.7-2.0) mmol/L 11/02/22 Range/Units 08:58 WBC (3.8-10.6) k/uL Hgb (11.4-16.0) gm/dL Hct (34.0-46.0) % RDW (11.5-15.5) % Neutrophils # (1.3-7.7) k/uL Lymphocytes # (1.0-4.8) k/uL APTT (22.0-30.0) sec D-Dimer (<0.60) mg/L FEU ABG pCO2 (35-45) mmHg ABG HCO3 (21-25) mmol/L ABG Total CO2 (19-24) mmol/L ABG O2 Saturation (94-97) % Sodium (137-145) mmol/L Chloride (98-107) mmol/L Creatinine (0.52-1.04) mg/dL Glucose (74-99) mg/dL POC Glucose (mg/dL) 188 H (70-110) mg/dL Plasma Lactic Acid Froilan (0.7-2.0) mmol/L Diabetes panel 11/01/22 11/01/22 Range/Units 17:35 23:46 Sodium 129 L 131 L (137-145) mmol/L Potassium 4.2 5.1 (3.5-5.1) mmol/L Chloride 90 L 93 L (98-107) mmol/L Carbon Dioxide 28 28 (22-30) mmol/L BUN 12 14 (7-17) mg/dL Creatinine 0.56 0.51 L (0.52-1.04) mg/dL Glucose 155 H 128 H (74-99) mg/dL Calcium 9.0 9.4 (8.4-10.2) mg/dL AST 33 (14-36) U/L ALT 29 (4-34) U/L Alkaline Phosphatase 107 (38-126) U/L Total Protein 7.1 (6.3-8.2) g/dL Albumin 4.3 (3.5-5.0) g/dL Calcium panel 11/01/22 11/01/22 Range/Units 17:35 23:46 Calcium 9.0 9.4 (8.4-10.2) mg/dL Albumin 4.3 (3.5-5.0) g/dL Pituitary panel 11/01/22 11/01/22 Range/Units 17:35 23:46 Sodium 129 L 131 L (137-145) mmol/L Potassium 4.2 5.1 (3.5-5.1) mmol/L Chloride 90 L 93 L (98-107) mmol/L Carbon Dioxide 28 28 (22-30) mmol/L BUN 12 14 (7-17) mg/dL Creatinine 0.56 0.51 L (0.52-1.04) mg/dL Glucose 155 H 128 H (74-99) mg/dL Calcium 9.0 9.4 (8.4-10.2) mg/dL Adrenal panel 11/01/22 11/01/22 Range/Units 17:35 23:46 Sodium 129 L 131 L (137-145) mmol/L Potassium 4.2 5.1 (3.5-5.1) mmol/L Chloride 90 L 93 L (98-107) mmol/L Carbon Dioxide 28 28 (22-30) mmol/L BUN 12 14 (7-17) mg/dL Creatinine 0.56 0.51 L (0.52-1.04) mg/dL Glucose 155 H 128 H (74-99) mg/dL Calcium 9.0 9.4 (8.4-10.2) mg/dL Total Bilirubin 0.2 (0.2-1.3) mg/dL AST 33 (14-36) U/L ALT 29 (4-34) U/L Alkaline Phosphatase 107 (38-126) U/L Total Protein 7.1 (6.3-8.2) g/dL Albumin 4.3 (3.5-5.0) g/dL Assessment and Plan Assessment: 1. Fall 2. COPD exacerbation 3. History of right ICA stenosis greater than 80% 4. Former smoker Plan: 1. Continue current dose of aspirin, Plavix, and Lipitor 2. No plans on surgical intervention, patient is poor surgical candidate due to COPD and respiratory decline. Continue with medical management for right ICA stenosis. Syncope and fall not likely related to carotid disease. 3. Smoking cessation 4. Defer rest of medical management per primary medical team Thank you for this consultation. The impression and plan of care has been dictated as directed. Dr. Kim I performed a history and examination of this patient, discussed the same with the dictator. I agree with the dictator's note ,documented as a scribe. Any additional findings or plans will be noted.
--- NOTE | 2022-11-02 12:12 | CA ---
Transthoracic Echo Report Name: Monisha Hastings Age: 72 Gender: F : 1950 Exam Date: 11/02/2022 07:52 Exam Location: [facility] Ht (in): 64 Wt (lb): 160 Ordering Physician: Leidy Denson MD Attending/Referring Phys: Team Automobile Assembler Adams Chahal RDCS Procedure CPT: Indications: Syncope Cardiac Hx: Technical Quality: Fair Contrast 1: Total Dose (mL): Contrast 2: Total Dose (mL): MEASUREMENTS (Male / Female) Normal Values 2D ECHO LV Diastolic Diameter PLAX 4.5 cm 4.2 - 5.9 / 3.9 - 5.3 cm LV Systolic Diameter PLAX 2.8 cm IVS Diastolic Thickness 1.5 cm 0.6 - 1.0 / 0.6 - 0.9 cm LVPW Diastolic Thickness 1.2 cm 0.6 - 1.0 / 0.6 - 0.9 cm LV Relative Wall Thickness 0.6 RV Internal Dim ED PLAX 3.2 cm LA Volume 47.9 cm??? 18 - 58 / 22 - 52 cm??? M-MODE Aortic Root Diameter MM 2.6 cm AV Cusp Separation MM 1.4 cm DOPPLER AV Peak Velocity 198.8 cm/s AV Peak Gradient 15.8 mmHg LVOT Peak Velocity 125.7 cm/s LVOT Peak Gradient 6.3 mmHg MV Area PHT 10.0 cm??? Mitral E Point Velocity 107.6 cm/s Mitral A Point Velocity 139.9 cm/s Mitral E to A Ratio 0.8 MV Deceleration Time 76.1 ms TR Peak Velocity 313.9 cm/s TR Peak Gradient 39.4 mmHg FINDINGS Left Ventricle Moderately increased septal wall thickness. Mildly increased posterior wall thickness. Grade 1 diastolic dysfunction. Left ventricular ejection fraction is estimated at 60%. Right Ventricle Normal right ventricular size and function. Right ventricular systolic pressure within normal limits. Right Atrium Normal right atrial size. Left Atrium Normal left atrial size. Mitral Valve Structurally normal mitral valve. Trace mitral regurgitation. Aortic Valve Trileaflet aortic valve. No aortic regurgitation. No aortic stenosis. Tricuspid Valve Structurally normal tricuspid valve. Mild tricuspid regurgitation. Pulmonic Valve Structurally normal pulmonic valve. No pulmonic regurgitation. Pericardium No pericardial or pleural effusion. Aorta Normal size aortic root and proximal ascending aorta. CONCLUSIONS LVH with preserved LV systolic function Previewed by: Dr. Girma Medley MD (Electronically Signed) Final Date: 02 November 2022 12:11
[2022-11-02 12:28] LABS: Glucose,Whole Blood 179 mg/dL (70-110)
--- NOTE | 2022-11-02 12:55 | P.PN ---
Subjective Progress Note Date: 11/02/22 The patient is a 72-year-old female with a PMH of COPD, chronic hypoxic respiratory failure on 4 L nasal cannula oxygen continuously at home, hypertension, and hyperlipidemia who presents to the emergency room with complaints of shortness of breath and a syncopal episode. The patient reports that she's been experiencing gradually worsening shortness of breath over the last 2 weeks, which she reports feels similar to her prior COPD exacerbations. Of note, the patient initially presented to the hospital earlier in the day with complaints of shortness of breath but decided to leave AMA. Shortly after returning home, the patient was found in the garage by her having lost consciousness. The patient does not recall the episode and states that the last thing she remembers was tending to some food and then waking up on the ground. Attempted to contact the patient's via phone with no response. The patient denied any prior history of syncope. She did report having hit her head on the right posterior side during the episode to which she reports mild pain. Chest CTA in the emergency room was negative for PE but revealed mild emphysematous changes. CT brain revealed a large right scalp hematoma without evidence of a fracture. EKG revealed sinus rhythm at 97 bpm with poor R-wave progression. Laboratory evaluation was remarkable for leukocytosis of 11.4, hemoglobin 10.9 (similar to baseline), ABG showing pCO2 51, sodium 129, chloride 90, lactic acid 2.8, troponin less than 0.012. Patient was seen and examined this morning. No acute events overnight. is at bedside. She reports improvement in her breathing since admission. Not quite back to baseline. She denies any dizziness. She reports similar syncopal episodes that occur every 3 weeks. She reports shaking of her extremities during these episodes along with occasional bladder incontinence. General: non toxic, mild distress, appears at stated age, dyspnea Derm: warm, dry Head: atraumatic, normocephalic, symmetric Eyes: EOMI, no lid lag, anicteric sclera Mouth: no lip lesion, mucus membranes moist Cardiovascular: Tachycardic, no murmur Lungs: End expiratory bilateral, no rhonchi, no rales , no accessory muscle use Ext: no gross muscle atrophy, no edema, no contractures Neuro: no focal neuro deficits Psych: Alert, oriented, appropriate affect Acute COPD exacerbation with acute on chronic hypoxic and hypercapnic respiratory failure Syncope, unclear etiology Hypochloremic hyponatremia Elevated D-Dimer Carotid stenosis Normocytic anemia Resolved: Lactic acidosis Chronic conditions: Hypertension, hyperlipidemia Based on my assessment of this patient, this patient meets a high complexity level of care. I have reviewed the following property consultant notes: Vascular surgery note 11/02, continue current dose of aspirin, plavix, and lipitor. No plans on surgical intervention. Pulmonology note 11/02, check COVID-19, influenza, RSV, check procalcitonin level, echocardiogram ordered I have reviewed the results of the following tests: None. I have ordered the following tests: EEG is ordered. Echocardiogram is ordered. I have discussed the care of this patient with the following independent historian: Case was discussed with the at bedside with regard to her syncopal episodes at home. I have independently interpreted the following test below: None. I have discussed the management of this patient with the following physician: None. This patient has a high risk of morbidity due to the following reasons: Patient has a COPD with severe exacerbation or progression of disease which poses a threat to life or bodily function. She suffered a syncopal episode at home. Her description of her syncopal episodes are questionable for seizures. She also reports a history of severe carotid stenosis. Echocardiogram and EEG has been ordered. Vascular surgery and neurology has been consulted for workup of syncope. Pulmonology is currently following the patient. Continue azithromycin 500 mg IV daily for 3 doses to cover for community- acquired pneumonia. Continue DuoNeb scheduled and as needed for shortness of breath and wheezing. Continue Solu-Medrol 60 mg IV every 6 hours. Continue Perforomist 20 g inhaled twice a day. Continue aspirin 81 mg by mouth, Lipitor 40 mg by mouth and Plavix 75 mg by mouth daily for history of carotid stenosis. Continue telemetry monitoring. She is pending clinical improvement. Lovenox for DVT prophylaxis. Patient was likely to be full code. Objective - Vital Signs Vital signs: Vital Signs Temp 98.2 F 11/02/22 08:49 Pulse 98 11/02/22 12:19 Resp 20 11/02/22 12:00 BP 123/66 11/02/22 12:00 Pulse Ox 98 11/02/22 12:00 FiO2 50 11/01/22 21:00 Intake & Output 11/01/22 11/02/22 11/02/22 18:59 06:59 18:59 Weight 72.575 kg - Labs CBC & Chem 7: 11/01/22 23:46 11/01/22 23:46 Labs: Abnormal Lab Results - Last 24 Hours (Table) 11/01/22 11/01/22 11/01/22 Range/Units 17:35 17:35 17:35 WBC 11.4 H (3.8-10.6) k/uL Hgb 10.9 L (11.4-16.0) gm/dL Hct (34.0-46.0) % RDW 16.4 H (11.5-15.5) % Neutrophils # 10.8 H (1.3-7.7) k/uL Lymphocytes # 0.4 L (1.0-4.8) k/uL APTT 19.9 L (22.0-30.0) sec D-Dimer 0.98 H (<0.60) mg/L FEU ABG pCO2 (35-45) mmHg ABG HCO3 (21-25) mmol/L ABG Total CO2 (19-24) mmol/L ABG O2 Saturation (94-97) % Sodium 129 L (137-145) mmol/L Chloride 90 L (98-107) mmol/L Creatinine (0.52-1.04) mg/dL Glucose 155 H (74-99) mg/dL POC Glucose (mg/dL) (70-110) mg/dL Plasma Lactic Acid Froilan (0.7-2.0) mmol/L 11/01/22 11/01/22 11/01/22 Range/Units 17:35 20:52 23:39 WBC (3.8-10.6) k/uL Hgb (11.4-16.0) gm/dL Hct (34.0-46.0) % RDW (11.5-15.5) % Neutrophils # (1.3-7.7) k/uL Lymphocytes # (1.0-4.8) k/uL APTT (22.0-30.0) sec D-Dimer (<0.60) mg/L FEU ABG pCO2 51 H (35-45) mmHg ABG HCO3 32 H (21-25) mmol/L ABG Total CO2 34 H (19-24) mmol/L ABG O2 Saturation 97.2 H (94-97) % Sodium (137-145) mmol/L Chloride (98-107) mmol/L Creatinine (0.52-1.04) mg/dL Glucose (74-99) mg/dL POC Glucose (mg/dL) (70-110) mg/dL Plasma Lactic Acid Froilan 2.8 H* 2.1 H* (0.7-2.0) mmol/L 11/01/22 11/01/22 11/01/22 Range/Units 23:46 23:46 23:46 WBC 13.8 H (3.8-10.6) k/uL Hgb 10.4 L (11.4-16.0) gm/dL Hct 31.8 L (34.0-46.0) % RDW 16.6 H (11.5-15.5) % Neutrophils # (1.3-7.7) k/uL Lymphocytes # (1.0-4.8) k/uL APTT (22.0-30.0) sec D-Dimer (<0.60) mg/L FEU ABG pCO2 (35-45) mmHg ABG HCO3 (21-25) mmol/L ABG Total CO2 (19-24) mmol/L ABG O2 Saturation (94-97) % Sodium 131 L (137-145) mmol/L Chloride 93 L (98-107) mmol/L Creatinine 0.51 L (0.52-1.04) mg/dL Glucose 128 H (74-99) mg/dL POC Glucose (mg/dL) (70-110) mg/dL Plasma Lactic Acid Froilan 3.0 H* (0.7-2.0) mmol/L 11/02/22 11/02/22 Range/Units 08:58 12:26 WBC (3.8-10.6) k/uL Hgb (11.4-16.0) gm/dL Hct (34.0-46.0) % RDW (11.5-15.5) % Neutrophils # (1.3-7.7) k/uL Lymphocytes # (1.0-4.8) k/uL APTT (22.0-30.0) sec D-Dimer (<0.60) mg/L FEU ABG pCO2 (35-45) mmHg ABG HCO3 (21-25) mmol/L ABG Total CO2 (19-24) mmol/L ABG O2 Saturation (94-97) % Sodium (137-145) mmol/L Chloride (98-107) mmol/L Creatinine (0.52-1.04) mg/dL Glucose (74-99) mg/dL POC Glucose (mg/dL) 188 H 179 H (70-110) mg/dL Plasma Lactic Acid Froilan (0.7-2.0) mmol/L
--- NOTE | 2022-11-02 14:53 | P.CNNES ---
History of Present Illness Consult date: 11/02/22 Requesting physician: Danita Sage Reason for Consult: possible seizure History of Present Illness: This is a 72-year-old woman with history of significant right internal carotid stenosis (>80%), syncopal episode Chirag COPD, tobacco use who presented emergency department because of shortness of breath and syncopal episode that. Patient stated that the she was a home in the kitchen and the she stated that all of a sudden she was on the floor in the kitchen and was found passed out by her she stated the episode was a brief period and had loss of urinary incontinence. Denies any bowel incontinence or any tongue bite. She was told she was shaken of extremities. She states that that she has these episodes once every often but prior to the episodes she'll have a very bad cough then she'll pass out. Sometimes she is able to control her shaken and she would not pass out. She stated she followed up with a neurologist and he stated that he cannot tell place her on antiseizure medication because of the medication she is on but does not remember the name of the neurologist she saw. These episodes has been going on for the past at least 3 month. She stopped smoking recently. Patient has a history of right ICA stenosis greater than 80% Of Note, the patient is known to vascular surgery team for her right internal carotid artery stenosis that significant and she is a poor surgical candidate due to COPD and respiratory decline and recommend medical management. Some other workup during this hospital visit: Initial sodium was 129, was 155, Plasma-Lyte aspirin is 2.83. 2.1. AST of 33, ALTs 29. CT head is reported as no acute intracranial process. Large right scalp hematoma. No evidence of fracture. Remote left trevino radiata. I personally reviewed the CT and agree with report. 2-D echo was reported as left ventricular hypertrophy with preserved left ventricle systolic function. Review of Systems Review of system: The 12 point system was reviewed and apparent positive and negative per HPI. 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 O2 4-5 L use /. RESTLESS LEGS. Hx skin cancer multiple times. History of Any Multi-Drug Resistant Organisms: None Reported Past Surgical History: Section, Tonsillectomy Additional Past Surgical History / Comment(s): Growth removed from throat. Past Anesthesia/Blood Transfusion Reactions: No Reported Reaction Past Psychological History: Anxiety Smoking Status: Current every day smoker Past Alcohol Use History: Occasional Past Drug Use History: None Reported - Past Family History Father Family Medical History: Myocardial Infarction (DC) Additional Family Medical History / Comment(s): at age 29 of DC. Mother Family Medical History: Cancer, CVA/TIA Additional Family Medical History / Comment(s): Breast cancer, passed at age 83. Medications and Allergies Home Medications Medication Instructions Recorded Confirmed Type Albuterol Nebulized [Ventolin 2.5 mg INHALATION RT-QID 07/13/20 11/01/22 History Nebulized] Budesonide [Pulmicort] 0.5 mg INHALATION RT-BID 07/13/20 11/01/22 History Formoterol Fumarate [Perforomist] 20 mcg INHALATION RT-BID 07/13/20 11/01/22 History Omeprazole 20 mg PO DAILY 07/13/20 11/01/22 History PARoxetine HCL 30 mg PO DAILY 07/13/20 11/01/22 History Triamterene/Hydrochlorothiazid 1 tab PO DAILY 07/13/20 11/01/22 History [Triamterene-Hctz 37.5-25 mg Tb] Yupelri 175 mcg INHALATION RT-DAILY 07/13/20 11/01/22 History Atorvastatin [Lipitor] 40 mg PO DAILY 10/20/21 11/01/22 History Clopidogrel [Plavix] 75 mg PO DAILY 04/05/22 11/01/22 History busPIRone HCL [Buspar] 7.5 mg PO DAILY 04/05/22 11/01/22 History Aspirin EC [Ecotrin Low Dose] 81 mg PO DAILY 11/01/22 11/01/22 History Azithromycin [Zithromax Z Pack] See Taper PO DIRECTED 11/01/22 11/01/22 History Ferrous Sulfate [Feosol] 325 mg PO DAILY 11/01/22 11/01/22 History predniSONE [Deltasone] 20 mg PO BID #10 tab 11/01/22 11/01/22 Rx rOPINIRole HCL [rOPINIRole HCL ER 2 mg PO BID 11/01/22 11/01/22 History (XL)] Allergies Allergy/AdvReac Type Severity Reaction Status Date / Time No Known Allergies Allergy Verified 11/01/22 13:08 Physical Examination - Vital Signs Vital Signs: Vital Signs Temp Pulse Resp BP Pulse Ox FiO2 11/02/22 13:00 86 20 130/68 92 L 11/02/22 12:19 98 11/02/22 12:01 101 H 11/02/22 12:00 100 20 123/66 98 11/02/22 10:22 96 18 134/60 97 11/02/22 08:49 98.2 F 120 H 22 96/63 95 11/02/22 08:34 115 H 11/02/22 08:33 115 H 11/02/22 08:20 104 H 11/02/22 07:43 96 20 136/70 11/02/22 06:00 88 16 134/67 89 L 11/02/22 05:00 90 16 116/99 93 L 11/02/22 04:00 97 16 124/75 93 L 11/02/22 03:08 96 11/02/22 03:00 98 16 106/80 94 L 11/02/22 02:57 105 H 11/02/22 02:00 101 H 16 141/67 98 11/02/22 01:00 95 16 134/71 93 L 11/02/22 00:00 112 H 16 116/64 93 L 11/01/22 23:52 97 11/01/22 23:37 99 11/01/22 23:00 104 H 16 138/78 91 L 11/01/22 22:37 98.7 F 105 H 30 H 95/70 89 L 11/01/22 22:26 101 H 30 H 100/61 89 L 11/01/22 22:00 104 H 16 125/74 90 L 11/01/22 21:00 103 H 16 143/72 97 50 11/01/22 20:00 94 16 136/89 97 11/01/22 19:30 95 16 132/86 97 11/01/22 18:00 98 30 H 106/71 98 11/01/22 17:45 93 30 H 91/46 97 11/01/22 17:35 90 11/01/22 17:25 50 Intake and Output 11/01/22 11/02/22 11/02/22 22:59 06:59 14:59 Other: Weight 72.575 kg GENERAL: The patient is lying in bed and is not in acute distress. CHEST: The heart rate is regular rate rhythm. No murmurs to auscultation. LUNG: Clear to auscultation bilaterally no wheezing noted throughout. Not labored breathing. ABDOMEN/GI: Bowel sounds present in all 4 quadrants. No tenderness to palpation throughout. NEUROLOGICAL: Higher mental function: The patient is awake, alert, oriented to self, place and time. Patient is following commands. No aphasia and no neglect. Cranial nerves: The pupils are round, equal and reactive to light and accommodation. Visual levi are full to confrontation throughout. Extraocular movement is intact no nystagmus is noted. Facial sensation is normal to touch throughout. The facial strength is normal throughout. Hearing is normal bilaterally to hand rub. Tongue is midline and moved [id number] without any difficulty. No dysarthria is noted. Shoulder shrug is normal bilaterally. Motor: The strength is 5 over 5 throughout. Normal tone and bulk. Cerebellum: Normal finger to nose bilaterally. Sensation: Sensation is normal to touch throughout. Reflexes (right/left): 2+ throughout. Plantars are downgoing bilaterally. Results - Laboratory Findings CBC and BMP: 11/01/22 23:46 11/01/22 23:46 Abnormal Lab Findings: Abnormal Labs 11/01/22 11/01/22 11/01/22 17:35 17:35 17:35 WBC 11.4 H Hgb 10.9 L Hct RDW 16.4 H Neutrophils # 10.8 H Lymphocytes # 0.4 L APTT 19.9 L D-Dimer 0.98 H ABG pCO2 ABG HCO3 ABG Total CO2 ABG O2 Saturation Sodium 129 L Chloride 90 L Creatinine Glucose 155 H POC Glucose (mg/dL) Plasma Lactic Acid Froilan 11/01/22 11/01/22 11/01/22 17:35 20:52 23:39 WBC Hgb Hct RDW Neutrophils # Lymphocytes # APTT D-Dimer ABG pCO2 51 H ABG HCO3 32 H ABG Total CO2 34 H ABG O2 Saturation 97.2 H Sodium Chloride Creatinine Glucose POC Glucose (mg/dL) Plasma Lactic Acid Froilan 2.8 H* 2.1 H* 11/01/22 11/01/22 11/01/22 23:46 23:46 23:46 WBC 13.8 H Hgb 10.4 L Hct 31.8 L RDW 16.6 H Neutrophils # Lymphocytes # APTT D-Dimer ABG pCO2 ABG HCO3 ABG Total CO2 ABG O2 Saturation Sodium 131 L Chloride 93 L Creatinine 0.51 L Glucose 128 H POC Glucose (mg/dL) Plasma Lactic Acid Froilan 3.0 H* 11/02/22 11/02/22 08:58 12:26 WBC Hgb Hct RDW Neutrophils # Lymphocytes # APTT D-Dimer ABG pCO2 ABG HCO3 ABG Total CO2 ABG O2 Saturation Sodium Chloride Creatinine Glucose POC Glucose (mg/dL) 188 H 179 H Plasma Lactic Acid Froilan Assessment and Plan Assessment: Syncopal episode seems due to the symptoms of manic right ICA stenosis. Cannot rule outs underlying possible seizure in addition but I feel more likely due to Carotid stenosis in addition to her underlying hypoxia from COPD and has tussive syncope Right ICA stenosis of at least more than 80%. 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 I'll not start the patient on anti-seizure medication as of now and will wait for the result of the EEG then we'll decide further. Vascular surgery team is consulted and they feel the patient is a poor surgical candidate because of her lung condition Will defer the rest of the medical management to primary team Plan was discussed with the patient as well as the primary team Thank you for the consultation Time with Patient: Greater than 30
[2022-11-02 16:32] LABS: Glucose,Whole Blood 153 mg/dL (70-110)
[2022-11-02] MEDS: ACETAMINOPHEN TAB 325 MG TAB PO PRN ×2 (17:33→23:21)
[2022-11-02 20:16] LABS: Glucose,Whole Blood 199 mg/dL (70-110)
[2022-11-02] MEDS: AZITHROMYCIN 500 MG in SODIUM CHLORIDE 0.9% 250 ML IVPB SCH (21:01)
--- NOTE | 2022-11-02 21:40 | EEG ---
ELECTROENCEPHALOGRAM REPORT CLINICAL HISTORY: This is a 72-year-old woman with repeated syncopal episodes. The video EEG is obtained to evaluate for seizure epileptiform activity. RELEVANT MEDICATION: The patient is not on any antiseizure medication. EEG TYPE: A routine 21-channel EEG is performed with video using the 10/20 electrode placement system. DESCRIPTION: Wakefulness is only obtained. During awake state, the posterior-dominant rhythm consists of cjl-in-atraerrr voltage of 8.5 to 9 hertz activity that is well modulated, well sustained. There is no physiological stage 2 sleep architecture. There is no focal slowing. Interictal and ictal is none. ACTIVATION PROCEDURE: Photic stimulation did not evoke a posterior driving response. There is no abnormality during the photic stimulation. Hyperventilation is not performed. CLINICAL INTERPRETATION: This is a normal routine EEG. There is no focal slowing, epileptiform discharge, or seizure on the EEG. A routine EEG does not rule out underlying epilepsy. Clinical correlation is recommended. VINICIO / ESTHERN: [id number] /
[2022-11-03] MEDS: IPRATROPIUM-ALBUTEROL 3 ML NEB INHALATION PRN (01:19)
[2022-11-03] MEDS: methylPREDNISolone SOD SUCCI 125 MG/2 ML VIAL IV SCH ×4 (05:59→23:47)
[2022-11-03] MEDS: ACETAMINOPHEN TAB 325 MG TAB PO PRN ×3 (06:16→20:01)
[2022-11-03 06:36] LABS: Glucose,Whole Blood 123 mg/dL (70-110)
[2022-11-03] MEDS: INSULIN ASPART (NovoLOG) 100 UNIT/ML VIAL SQ SCH ×4 (06:43→20:51)
[2022-11-03] MEDS: ENOXAPARIN 40 MG/0.4 ML SYRINGE SQ SCH (09:00)
[2022-11-03] MEDS: busPIRone HCl 5 MG TAB PO SCH (09:00)
[2022-11-03] MEDS: ASPIRIN 81 MG PO SCH (09:01)
[2022-11-03] MEDS: PANTOPRAZOLE 40 MG TABLET PO SCH (09:01)
[2022-11-03] MEDS: PARoxetine 10 MG TAB PO SCH (09:02)
[2022-11-03] MEDS: FERROUS SULFATE 325 MG TAB PO SCH (09:02)
[2022-11-03] MEDS: ATORVASTATIN 40 MG TAB PO SCH (09:02)
[2022-11-03] MEDS: CLOPIDOGREL 75 MG TAB PO SCH (09:03)
[2022-11-03] MEDS: BUDESONIDE 1 MG/2 ML NEBU INHALATION SCH ×2 (09:22→20:07)
[2022-11-03] MEDS: FORMOTEROL FUMARATE 20 MCG/2 ML NEBU INHALATION SCH ×2 (09:22→20:07)
[2022-11-03] MEDS: IPRATROPIUM-ALBUTEROL 3 ML NEB INHALATION SCH ×4 (09:22→20:07)
--- NOTE | 2022-11-03 10:03 | P.PN ---
Subjective Progress Note Date: 11/03/22 I'm seeing this patient in new consultation today 11/02/2022 for an acute COPD exacerbation. Patient is a 72-year-old white female with past medical history significant for severe COPD with a baseline FEV1 54% of predicted, home oxygen dependence on 4 L nasal cannula, carotid artery stenosis, hypertension, hyperlipidemia, chronic anemia, restless leg syndrome, anxiety, current smoker. Patient presented to the emergency room yesterday evening for progressive shortness breath over the previous 2 days and a syncopal episode. Patient also reports a productive cough with green sputum. Denies any fever, hemoptysis, chest pain, heart palpitations. Patient was found down on the ground in the garage by her . Patient did apparently visit the emergency room earlier that day, and left AGAINST MEDICAL ADVICE. Brain CT without contrast showed no acute intracranial process, a large right scalp hematoma, and a remote left trevino radiata injury. patient does not remember events leading up to ending up on the ground. She denies any focal neurological deficits. ECG done on arrival showed normal sinus rhythm without obvious ischemic changes. Chest CTA on arrival showed no evidence of pulmonary embolism, mild emphysema changes, no evidence of an acute cardiopulmonary process to explain the patient's dyspnea. currently the patient is in the emergency room, sitting at the side of the stretcher, on 4 L nasal cannula, in no acute distress. Patient was trialed on a BiPAP with settings 10/5 and FiO2 50%. She did not tolerate this and ripped off the mask. A follow-up ABG done on 4 L nasal cannula showed a pO2 of 84, PCO2 of 51, pH of 7.41. patient's CBC on arrival showed a WBC count of 13.8, hemoglobin 10.4, hematocrit 31.8, platelets 396,000. Patient's BMP on arrival showed a sodium 131, potassium 5.1, chloride 93, serum CO2 28, BUN 14, creatinine 0.51, glucose 128. Patient's lactic acid was mildly elevated at 2.1. normal saline infusing at 75 mL per hour. patient is currently maintained on empiric azithromycin. patient is also receiving bronchodilators, budesonide inhalation, Pulmicort inhalation, and IV Solu-Medrol. patient was not checked for COVID-19 for influenza. vital signs are stable. The patient is seen today 11/03/2022 in follow-up on the regular medical floor. She is currently resting comfortably in bed. Awake and alert in no acute distress. Feeling a bit better today compared to yesterday. She is maintaining O2 saturations in the 90s on 4 L/m per nasal cannula. No IV fluids currently. Continued on DuoNeb inhalations, Pulmicort and Perforomist inhalations, IV Solu- Medrol. Pro-calcitonin normal at 0.07. Azithromycin discontinued. EEG was within normal limits. Echocardiogram with preserved left ventricular systolic function. No significant valvular abnormalities. Objective - Vital Signs Vital signs: Vital Signs Temp 98.1 F 11/03/22 07:26 Pulse 90 11/03/22 09:35 Resp 20 11/03/22 09:35 BP 104/58 11/03/22 07:26 Pulse Ox 94 L 11/03/22 09:23 FiO2 50 11/01/22 21:00 Intake & Output 11/02/22 11/03/22 11/03/22 18:59 06:59 18:59 Intake Total 120 540 Balance 120 540 Weight 72.575 kg 72.4 kg Intake: Oral 120 540 Other: Voiding Method Toilet # Voids 1 1 1 - Exam GENERAL EXAM: Alert, pleasant 72-year-old female, on 4 L nasal cannula, comfortable in no apparent distress. HEAD: Normocephalic. EYES: Normal reaction of pupils, equal size. NOSE: Clear with pink turbinates. THROAT: No erythema or exudates. NECK: No masses, no JVD. CHEST: No chest wall deformity. LUNGS: Equal air entry with bilateral end expiratory wheeze. CVS: S1 and S2 normal with no audible murmur, regular rhythm. ABDOMEN: No hepatosplenomegaly, normal bowel sounds, no guarding or rigidity. SPINE: No scoliosis or deformity SKIN: No rashes CENTRAL NERVOUS SYSTEM: No focal deficits, tone is normal in all 4 extremities. EXTREMITIES: There is no peripheral edema. No clubbing, no cyanosis. Peripheral pulses are intact. - Labs CBC & Chem 7: 11/01/22 23:46 11/01/22 23:46 Labs: Abnormal Lab Results - Last 24 Hours (Table) 11/02/22 11/02/22 11/02/22 Range/Units 12:26 16:18 20:15 POC Glucose (mg/dL) 179 H 153 H 199 H (70-110) mg/dL 11/03/22 Range/Units 06:34 POC Glucose (mg/dL) 123 H (70-110) mg/dL Microbiology - Last 24 Hours (Table) 11/01/22 20:52 Blood Culture - Preliminary Blood No Growth after 24 hours Assessment and Plan Assessment: Acute exacerbation of patient's severe COPD, possibly related to acute tracheobronchitis. no evidence of pneumonia or focal consolidation on chest x- ray or chest CTA. ProCalcitonin 0.07. Antibiotics discontinued. Acute on chronic hypoxemic and hypercapnic respiratory failure. patient normally wears 4 L nasal cannula at home. Patient was initially placed on BiPAP on arrival to the emergency room. She did not tolerate this, and is currently on 4 L nasal cannula. Syncope, currently under investigation. EEG was within normal limits. Echocardiogram with preserved left ventricular systolic function. No significant valvular abnormalities Carotid artery stenosis, a CT angiogram of the neck done on March 2021 showed an estimated 80% stenosis of the right ICA and 50% stenosis of the left ICA at that time hypertension Hyperlipidemia current tobacco dependence Chronic anemia Plan: The patient was seen and evaluated Echocardiogram, EEG, labs and medications reviewed Procalcitonin 0.07 Antibiotics discontinued Continued on bronchodilators, IV Solu-Medrol Titrate the FiO2 as tolerated We will continue to follow I have personally seen and examined the patient, performed the documentation and the assessment and plan as written. Number of minutes spent on the visit: 10.
--- NOTE | 2022-11-03 11:22 | P.PN ---
Subjective Progress Note Date: 11/03/22 Principal diagnosis: Syncope with history of carotid stenosis Patient seen and examined today as a follow-up. Patient is known to Dr. Kim and has followed in the outpatient setting for right ICA stenosis. Patient was seen by neurology, EEG was completed yesterday which reported normal routine EEG. No focal slowing, with deformed discharge or seizure on EEG. Patient denies any focal deficits or falls during this admission. She remains on 4 L nasal cannula with an oxygen saturation of 94%. Objective - Vital Signs Vital signs: Vital Signs Temp 98.1 F 11/03/22 07:26 Pulse 62 11/03/22 07:26 Resp 23 11/03/22 07:26 BP 104/58 11/03/22 07:26 Pulse Ox 99 11/03/22 07:26 FiO2 50 11/01/22 21:00 Intake & Output 11/02/22 11/03/22 11/03/22 18:59 06:59 18:59 Intake Total 120 540 Balance 120 540 Weight 72.575 kg 72.4 kg Intake: Oral 120 540 Other: Voiding Method Toilet # Voids 1 1 - Exam General appearance: The patient is alert, oriented, appears in no acute distress. HET: Head is normocephalic and atraumatic. Pupils are equal and reactive. Neck: Supple. Trachea midline. Right carotid bruit Extremities: Normal skin color and turgor. No cyanosis, rash, ulceration, clubbing, or edema. Peripheral radial pulses +2 bilaterally. Palpable PT bilaterally. Good capillary refill. Neurological: No focal deficits. Patient alert and oriented 3. - Labs CBC & Chem 7: 11/01/22 23:46 11/01/22 23:46 Labs: Abnormal Lab Results - Last 24 Hours (Table) 11/02/22 11/02/22 11/02/22 Range/Units 08:58 12:26 16:18 POC Glucose (mg/dL) 188 H 179 H 153 H (70-110) mg/dL 11/02/22 11/03/22 Range/Units 20:15 06:34 POC Glucose (mg/dL) 199 H 123 H (70-110) mg/dL Microbiology - Last 24 Hours (Table) 11/01/22 20:52 Blood Culture - Preliminary Blood No Growth after 24 hours Assessment and Plan Assessment: 1. Fall 2. COPD exacerbation 3. History of right ICA stenosis greater than 80% 4. Former smoker 5. 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 Continue current dose of aspirin, Plavix, and Lipitor 2. No plans on surgical intervention, patient is poor surgical candidate due to COPD and respiratory decline. Continue with medical management for right ICA stenosis. 3. Smoking cessation 4. Defer rest of medical management per primary medical team I. Continue with recommendations from neurology Thank you for this consultation. The impression and plan of care has been dictated as directed. Dr. Kim I performed a history and examination of this patient, discussed the same with the dictator. I agree with the dictator's note ,documented as a scribe. Any additional findings or plans will be noted.
--- NOTE | 2022-11-03 11:46 | CDI ---
Documentation Clarification Form Date: 11/03/2022 11:27:25 AM From: Zoe Jo RN CCDS Phone: [phone] Admit Date: 11/01/2022 8:29:00 PM Patient Name: Monisha Hastings Visit Number: [id number] Discharge Date: ATTENTION: The Clinical Documentation Specialists (CDI) and [facility] Coding Staff appreciate your assistance in clarifying documentation. Please respond to the clarification below the line at the bottom and electronically sign. The CDI & [facility] Coding staff will review the response and follow-up if needed. Please note: Queries are made part of the Legal Health Record. If you have any questions, please contact the author of this message via ITS. Dr. Danita Sage Conflicting documentation has been found in the medical record. As attending physician, please provide clarification. No evidence of pneumonia or focal consolidation on chest xray or chest CTA, pulmonary consult, 11/02 Pneumonia, medicine note, 11/02 History/Risk Factors: 72 year old female presents with dyspnea and syncope after being found by in the garage. Medical History: Severe COPD, current smoker and HTN. 11/01, H&P Clinical Indicators: 11/01, CTangio chest: Mild emphysema changes, No evidence for acute process with in the thorax to explain patients dyspnea/ syncope 11/02, CXR: No acute findings. Treatment: 11/01 Azithromycin IVPB x 3 doses, 11/03 discontinued after 2 doses given. Tylenol, Duonebs. Please clarify which diagnosis is most appropriate: [ ] Pneumonia poa [ x ] Pneumonia ruled out [ ] Other (please specify) [ ] Unable to determine (Template Last Revised: September 2020) MTDD
[2022-11-03 12:40] LABS: Glucose,Whole Blood 155 mg/dL (70-110)
--- NOTE | 2022-11-03 13:31 | P.PN ---
Subjective Progress Note Date: 11/03/22 The patient is a 72-year-old female with a PMH of COPD, chronic hypoxic respiratory failure on 4 L nasal cannula oxygen continuously at home, hypertension, and hyperlipidemia who presents to the emergency room with complaints of shortness of breath and a syncopal episode. The patient reports that she's been experiencing gradually worsening shortness of breath over the last 2 weeks, which she reports feels similar to her prior COPD exacerbations. Of note, the patient initially presented to the hospital earlier in the day with complaints of shortness of breath but decided to leave AMA. Shortly after returning home, the patient was found in the garage by her having lost consciousness. The patient does not recall the episode and states that the last thing she remembers was tending to some food and then waking up on the ground. Attempted to contact the patient's via phone with no response. The patient denied any prior history of syncope. She did report having hit her head on the right posterior side during the episode to which she reports mild pain. Chest CTA in the emergency room was negative for PE but revealed mild emphysematous changes. CT brain revealed a large right scalp hematoma without evidence of a fracture. EKG revealed sinus rhythm at 97 bpm with poor R-wave progression. Laboratory evaluation was remarkable for leukocytosis of 11.4, hemoglobin 10.9 (similar to baseline), ABG showing pCO2 51, sodium 129, chloride 90, lactic acid 2.8, troponin less than 0.012. Patient was seen and examined this morning. No acute events overnight. She reports improvement in her breathing since admission. 60% back to baseline. She denies any dizziness. General: non toxic, mild distress, appears at stated age, dyspnea Derm: warm, dry Head: atraumatic, normocephalic, symmetric Eyes: EOMI, no lid lag, anicteric sclera Mouth: no lip lesion, mucus membranes moist Cardiovascular: Tachycardic, no murmur Lungs: End expiratory bilateral, no rhonchi, no rales , no accessory muscle use Ext: no gross muscle atrophy, no edema, no contractures Neuro: no focal neuro deficits Psych: Alert, oriented, appropriate affect Acute COPD exacerbation with acute on chronic hypoxic and hypercapnic respiratory failure Syncope, unclear etiology Hypochloremic hyponatremia Elevated D-Dimer Carotid stenosis Normocytic anemia Resolved: Lactic acidosis Chronic conditions: Hypertension, hyperlipidemia Based on my assessment of this patient, this patient meets a moderate complexity level of care. I have reviewed the following transportation consultant notes: Vascular surgery note 11/03, continue current dose of aspirin, plavix, and lipitor. No plans on surgical intervention. Pulmonology note 11/03, antibiotics discontinued, continued on bronchodilators Neurology note 11/02, EEG and MRI brain, no antiepileptic medications I have reviewed the results of the following tests: EEG is negative. Echocardiogram shows EF 60% with G1DD. Procalcitonin negative. I have ordered the following tests: MRI brain ordered. I have discussed the care of this patient with the following independent historian: None. I have independently interpreted the following test below: None. I have discussed the management of this patient with the following physician: None. This patient has a moderate risk of morbidity due to the following reasons: Patient has a COPD with severe exacerbation or progression of disease which poses a threat to life or bodily function. She suffered a syncopal episode at home. Her description of her syncopal episodes are questionable for seizures. She also reports a history of severe carotid stenosis. Echocardiogram and EEG completed. Vascular surgery and neurology is on board for workup of syncope. Pulmonology is currently following the patient. Antibiotics discontinued due to normal procal. Continue DuoNeb scheduled and as needed for shortness of breath and wheezing. Continue Solu-Medrol 60 mg IV every 6 hours. Continue Perforomist 20 g inhaled twice a day. Continue aspirin 81 mg by mouth, Lipitor 40 mg by mouth and Plavix 75 mg by mouth daily for history of carotid stenosis. Continue telemetry monitoring. She is pending clinical improvement. Lovenox for DVT prophylaxis. Patient was likely to be full code. Objective - Vital Signs Vital signs: Vital Signs Temp 98.1 F 11/03/22 07:26 Pulse 97 11/03/22 13:00 Resp 20 11/03/22 09:41 BP 104/58 11/03/22 07:26 Pulse Ox 94 L 11/03/22 11:00 FiO2 50 11/01/22 21:00 Intake & Output 11/02/22 11/03/22 11/03/22 18:59 06:59 18:59 Intake Total 120 540 Balance 120 540 Weight 72.575 kg 72.4 kg Intake: Oral 120 540 Other: Voiding Method Toilet # Voids 1 1 1 - Labs CBC & Chem 7: 04/11/23 23:46 11/01/22 23:46 Labs: Abnormal Lab Results - Last 24 Hours (Table) 11/02/22 11/02/22 11/02/22 Range/Units 03:50 16:18 20:15 POC Glucose (mg/dL) 153 H 199 H (70-110) mg/dL Coronavirus (PCR) Detected A (Not Detected) 11/03/22 11/03/22 Range/Units 06:34 12:39 POC Glucose (mg/dL) 123 H 155 H (70-110) mg/dL Coronavirus (PCR) (Not Detected) Microbiology - Last 24 Hours (Table) 11/01/22 20:52 Blood Culture - Preliminary Blood No Growth after 24 hours
--- NOTE | 2022-11-03 14:52 | P.PN ---
Subjective Progress Note Date: 11/03/22 The patient seen at bedside and she is accompanied with her significant other. No further syncopal episode. Again she confirmed that whenever she coughs heavily she'll have passing out episode. Objective - Vital Signs Vital signs: Vital Signs Temp 98.0 F 11/03/22 13:14 Pulse 103 H 11/03/22 13:14 Resp 97 H 11/03/22 13:14 BP 109/67 11/03/22 13:14 Pulse Ox 97 11/03/22 13:14 FiO2 50 11/01/22 21:00 Intake & Output 11/02/22 11/03/22 11/03/22 18:59 06:59 18:59 Intake Total 120 540 Balance 120 540 Weight 72.575 kg 72.4 kg Intake: Oral 120 540 Other: Voiding Method Toilet # Voids 1 1 1 - Exam GENERAL: The patient is lying in bed and is not in acute distress. NEUROLOGICAL: Higher mental function: The patient is awake, alert, oriented to self, place and time. Patient is following commands. No aphasia and no neglect. Cranial nerves: The pupils are round, equal and reactive to light and accommodation. Visual levi are full to confrontation throughout. Extraocular movement is intact no nystagmus is noted. Facial sensation is normal to touch throughout. The facial strength is normal throughout. Hearing is normal bilat erally to hand rub. Tongue is midline and moved [id number] without any difficulty. No dysarthria is noted. Shoulder shrug is normal bilaterally. Motor: The strength is 5 over 5 throughout. Normal tone and bulk. Cerebellum: Normal finger to nose bilaterally. Sensation: Sensation is normal to touch throughout. Reflexes (right/left): 2+ throughout. Plantars are downgoing bilaterally. Some other workup during this hospital visit: Tiwari virus PCR is detected. CT head is reported as no acute intracranial process. Large right scalp hematoma. No evidence of fracture. Remote left tiwari radiata. I personally reviewed the CT and agree with report. 2-D echo was reported as left ventricular hypertrophy with preserved left ventricle systolic function. Routine EEG is normal. There is no focal slowing, epileptiform discharges or seizure on the EEG. - Labs CBC & Chem 7: 11/01/22 23:46 11/01/22 23:46 Labs: Abnormal Lab Results - Last 24 Hours (Table) 11/02/22 11/02/22 11/02/22 Range/Units 03:50 16:18 20:15 POC Glucose (mg/dL) 153 H 199 H (70-110) mg/dL Coronavirus (PCR) Detected A (Not Detected) 11/03/22 11/03/22 Range/Units 06:34 12:39 POC Glucose (mg/dL) 123 H 155 H (70-110) mg/dL Coronavirus (PCR) (Not Detected) Microbiology - Last 24 Hours (Table) 11/01/22 20:52 Blood Culture - Preliminary Blood No Growth after 24 hours Assessment and Plan Assessment: Syncopal episode seems due to the symptoms of manic right ICA stenosis. Cannot rule outs underlying possible seizure in addition but I feel more likely due to Carotid stenosis in addition to her underlying hypoxia from COPD and has tussive syncope Right ICA stenosis of at least more than 80%. 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 COPD Former smoker Plan: Pending MRI of the brain. Ordered Orthostatic vitals. I'll not start the patient on anti-seizure medication since it is felt syncopal episode due to carotid stenosis and tussive and unlikely seizures. Patient is in agreement of holding off medication. Vascular surgery team is consulted and they feel the patient is a poor surgical candidate because of her lung condition Will defer the rest of the medical management to primary team Plan was discussed with the patient and her nurse. Time with Patient: Less than 30
[2022-11-03 16:32] LABS: Glucose,Whole Blood 220 mg/dL (70-110)
[2022-11-03 20:22] LABS: Glucose,Whole Blood 137 mg/dL (70-110)
[2022-11-04] MEDS: ACETAMINOPHEN TAB 325 MG TAB PO PRN ×3 (01:37→12:48)
[2022-11-04] MEDS: methylPREDNISolone SOD SUCCI 125 MG/2 ML VIAL IV SCH (06:08)
[2022-11-04 06:44] LABS: Glucose,Whole Blood 131 mg/dL (70-110)
[2022-11-04] MEDS: INSULIN ASPART (NovoLOG) 100 UNIT/ML VIAL SQ SCH ×2 (06:52→12:05)
[2022-11-04] MEDS: BUDESONIDE 1 MG/2 ML NEBU INHALATION SCH (07:33)
[2022-11-04] MEDS: IPRATROPIUM-ALBUTEROL 3 ML NEB INHALATION SCH (07:33)
[2022-11-04] MEDS: FORMOTEROL FUMARATE 20 MCG/2 ML NEBU INHALATION SCH (07:33)
[2022-11-04 07:37] VITALS: RESP 20; TEMP 98.7
[2022-11-04 07:50] VITALS: PULSE 100
[2022-11-04] MEDS ORDERED: ALBUTEROL HFA INHALER INHALATION PRN (08:16)
[2022-11-04] MEDS: ATORVASTATIN 40 MG TAB PO SCH (09:03)
[2022-11-04] MEDS: ENOXAPARIN 40 MG/0.4 ML SYRINGE SQ SCH (09:03)
[2022-11-04] MEDS: ASPIRIN 81 MG PO SCH (09:03)
[2022-11-04] MEDS: PARoxetine 10 MG TAB PO SCH (09:03)
[2022-11-04] MEDS: PANTOPRAZOLE 40 MG TABLET PO SCH (09:04)
[2022-11-04] MEDS: busPIRone HCl 5 MG TAB PO SCH (09:04)
[2022-11-04] MEDS: FERROUS SULFATE 325 MG TAB PO SCH (09:05)
[2022-11-04] MEDS: CLOPIDOGREL 75 MG TAB PO SCH (09:05)
[2022-11-04 11:39] LABS: Glucose,Whole Blood 139 mg/dL (70-110)
[2022-11-04] MEDS ORDERED: ALBUTEROL HFA INHALER INHALATION SCH (12:00)
[2022-11-04 12:25] LABS: Anisocytosis Slight; HCT 32.7 % (34.0-46.0); HGB 10.3 gm/dL (11.4-16.0); MCH 25.7 pg (25.0-35.0); MCHC 31.6 g/dL (31.0-37.0); MCV 81.4 fL (80.0-100.0); Microcytosis Slight; Platelet Count 407 k/uL (150-450); RBC 4.02 m/uL (3.80-5.40); RDW 16.8 % (11.5-15.5); WBC 15.3 k/uL (3.8-10.6)
--- NOTE | 2022-11-04 12:50 | P.PN ---
Subjective Progress Note Date: 11/04/22 The patient is seen at bedside and feels doing well. Denies any further passing out. Objective - Vital Signs Vital signs: Vital Signs Temp 98.7 F 11/04/22 07:11 Pulse 100 11/04/22 08:04 Resp 20 11/04/22 07:11 BP 129/83 11/04/22 07:11 Pulse Ox 96 11/04/22 07:34 FiO2 50 11/01/22 21:00 Intake & Output 11/03/22 11/04/22 11/04/22 18:59 06:59 18:59 Weight 72.6 kg Other: # Voids 1 2 - Exam GENERAL: The patient is lying in bed and is not in acute distress. NEUROLOGICAL: Higher mental function: The patient is awake, alert, oriented to self, place and time. Patient is following commands. No aphasia and no neglect. Cranial nerves: The pupils are round, equal and reactive to light and accommodation. Visual levi are full to confrontation throughout. Extraocular movement is intact no nystagmus is noted. Facial sensation is normal to touch throughout. The facial strength is normal throughout. Hearing is normal bilaterally to hand rub. Tongue is midline and moved [id number] without any difficulty. No dysarthria is noted. Shoulder shrug is normal bilaterally. Motor: The strength is 5 over 5 throughout. Normal tone and bulk. Cerebellum: Normal finger to nose bilaterally. Sensation: Sensation is normal to touch throughout. Reflexes (right/left): 2+ throughout. Plantars are downgoing bilaterally. Some other workup during this hospital visit: Initial ortho was suspected positive but repeat was negative. Tiwari virus PCR is detected. CT head is reported as no acute intracranial process. Large right scalp hematom a. No evidence of fracture. Remote left tiwari radiata. I personally reviewed the CT and agree with report. 2-D echo was reported as left ventricular hypertrophy with preserved left ventricle systolic function. Routine EEG is normal. There is no focal slowing, epileptiform discharges or seizure on the EEG. - Labs CBC & Chem 7: 11/04/22 11:56 11/01/22 23:46 Labs: Abnormal Lab Results - Last 24 Hours (Table) 11/02/22 11/03/22 11/03/22 Range/Units 03:50 16:30 20:20 WBC (3.8-10.6) k/uL Hgb (11.4-16.0) gm/dL Hct (34.0-46.0) % RDW (11.5-15.5) % POC Glucose (mg/dL) 220 H 137 H (70-110) mg/dL Coronavirus (PCR) Detected A (Not Detected) 11/04/22 11/04/22 11/04/22 Range/Units 06:43 11:37 11:56 WBC 15.3 H (3.8-10.6) k/uL Hgb 10.3 L (11.4-16.0) gm/dL Hct 32.7 L (34.0-46.0) % RDW 16.8 H (11.5-15.5) % POC Glucose (mg/dL) 131 H 139 H (70-110) mg/dL Coronavirus (PCR) (Not Detected) Microbiology - Last 24 Hours (Table) 11/01/22 20:52 Blood Culture - Preliminary Blood No Growth after 48 hours Assessment and Plan Assessment: Syncopal episode seems due to the symptoms of manic right ICA stenosis. Cannot rule outs underlying possible seizure in addition but I feel more likely due to Carotid stenosis in addition to her underlying hypoxia from COPD and has tussive syncope. Right ICA stenosis of at least more than 80%. 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 COPD Former smoker Plan: Patient refused MRI of the brain. I'll not start the patient on anti-seizure medication since it is felt syncopal episode due to carotid stenosis and tussive and unlikely seizures. Patient is in agreement of holding off medication. Vascular surgery team is consulted and they feel the patient is a poor surgical candidate because of her lung condition Will defer the rest of the medical management to primary team Plan was discussed with the patient and primary team. Time with Patient: Less than 30
--- NOTE | 2022-11-04 12:53 | P.PN ---
Subjective Progress Note Date: 11/04/22 I'm seeing this patient in new consultation today 11/02/2022 for an acute COPD exacerbation. Patient is a 72-year-old white female with past medical history significant for severe COPD with a baseline FEV1 54% of predicted, home oxygen dependence on 4 L nasal cannula, carotid artery stenosis, hypertension, hyperlipidemia, chronic anemia, restless leg syndrome, anxiety, current smoker. Patient presented to the emergency room yesterday evening for progressive shortness breath over the previous 2 days and a syncopal episode. Patient also reports a productive cough with green sputum. Denies any fever, hemoptysis, chest pain, heart palpitations. Patient was found down on the ground in the garage by her . Patient did apparently visit the emergency room earlier that day, and left AGAINST MEDICAL ADVICE. Brain CT without contrast showed no acute intracranial process, a large right scalp hematoma, and a remote left trevino radiata injury. patient does not remember events leading up to ending up on the ground. She denies any focal neurological deficits. ECG done on arrival showed normal sinus rhythm without obvious ischemic changes. Chest CTA on arrival showed no evidence of pulmonary embolism, mild emphysema changes, no evidence of an acute cardiopulmonary process to explain the patient's dyspnea. currently the patient is in the emergency room, sitting at the side of the stretcher, on 4 L nasal cannula, in no acute distress. Patient was trialed on a BiPAP with settings 10/5 and FiO2 50%. She did not tolerate this and ripped off the mask. A follow-up ABG done on 4 L nasal cannula showed a pO2 of 84, PCO2 of 51, pH of 7.41. patient's CBC on arrival showed a WBC count of 13.8, hemoglobin 10.4, hematocrit 31.8, platelets 396,000. Patient's BMP on arrival showed a sodium 131, potassium 5.1, chloride 93, serum CO2 28, BUN 14, creatinine 0.51, glucose 128. Patient's lactic acid was mildly elevated at 2.1. normal saline infusing at 75 mL per hour. patient is currently maintained on empiric azithromycin. patient is also receiving bronchodilators, budesonide inhalation, Pulmicort inhalation, and IV Solu-Medrol. patient was not checked for COVID-19 for influenza. vital signs are stable. The patient is seen today 11/03/2022 in follow-up on the regular medical floor. She is currently resting comfortably in bed. Awake and alert in no acute distress. Feeling a bit better today compared to yesterday. She is maintaining O2 saturations in the 90s on 4 L/m per nasal cannula. No IV fluids currently. Continued on DuoNeb inhalations, Pulmicort and Perforomist inhalations, IV Solu- Medrol. Pro-calcitonin normal at 0.07. Azithromycin discontinued. EEG was within normal limits. Echocardiogram with preserved left ventricular systolic function. No significant valvular abnormalities. The patient is seen today 11/04/2022 in follow-up on the regular medical floor. She is awake and alert in no acute distress. Maintaining good O2 saturations in the 90s on 4 L/m per nasal cannula. She is feeling quite a bit better. Hoping to go home today. White count 15.3. Hemoglobin 10.3. Platelets 407. Glucose 139. Cultures revealed no growth. She did test positive for COVID-19 infection. Pro-calcitonin was negative at 0.07. Influenza screen negative. RSV screen was negative. She is continued on Symbicort, Spiriva, albuterol inhalations. Lovenox for DVT prophylaxis. Transitioned to oral prednisone. Objective - Vital Signs Vital signs: Vital Signs Temp 98.7 F 11/04/22 07:11 Pulse 100 11/04/22 08:04 Resp 20 11/04/22 07:11 BP 129/83 11/04/22 07:11 Pulse Ox 96 11/04/22 07:34 FiO2 50 11/01/22 21:00 Intake & Output 11/03/22 11/04/22 11/04/22 18:59 06:59 18:59 Weight 72.6 kg Other: # Voids 1 2 - Exam GENERAL EXAM: Alert, oriented 72-year-old female, on 4 L nasal cannula, comfortable in no apparent distress. HEAD: Normocephalic. EYES: Normal reaction of pupils, equal size. NOSE: Clear with pink turbinates. THROAT: No erythema or exudates. NECK: No masses, no JVD. CHEST: No chest wall deformity. LUNGS: Equal air entry with bilateral end expiratory wheeze. CVS: S1 and S2 normal with no audible murmur, regular rhythm. ABDOMEN: No hepatosplenomegaly, normal bowel sounds, no guarding or rigidity. SPINE: No scoliosis or deformity SKIN: No rashes CENTRAL NERVOUS SYSTEM: No focal deficits, tone is normal in all 4 extremities. EXTREMITIES: There is no peripheral edema. No clubbing, no cyanosis. Periphe ral pulses are intact. - Labs CBC & Chem 7: 11/04/22 11:56 11/01/22 23:46 Labs: Abnormal Lab Results - Last 24 Hours (Table) 11/02/22 11/03/22 11/03/22 Range/Units 03:50 16:30 20:20 WBC (3.8-10.6) k/uL Hgb (11.4-16.0) gm/dL Hct (34.0-46.0) % RDW (11.5-15.5) % POC Glucose (mg/dL) 220 H 137 H (70-110) mg/dL Coronavirus (PCR) Detected A (Not Detected) 11/04/22 11/04/22 11/04/22 Range/Units 06:43 11:37 11:56 WBC 15.3 H (3.8-10.6) k/uL Hgb 10.3 L (11.4-16.0) gm/dL Hct 32.7 L (34.0-46.0) % RDW 16.8 H (11.5-15.5) % POC Glucose (mg/dL) 131 H 139 H (70-110) mg/dL Coronavirus (PCR) (Not Detected) Microbiology - Last 24 Hours (Table) 11/01/22 20:52 Blood Culture - Preliminary Blood No Growth after 48 hours Assessment and Plan Assessment: Acute exacerbation of patient's severe COPD, possibly related to acute tracheobronchitis. no evidence of pneumonia or focal consolidation on chest x- ray or chest CTA. ProCalcitonin 0.07. Antibiotics discontinued. Acute COVID-19 infection Acute on chronic hypoxemic and hypercapnic respiratory failure. The patient normally wears 4 L nasal cannula at home. Syncope, currently under investigation. EEG was within normal limits. Echocardiogram with preserved left ventricular systolic function. No sig nificant valvular abnormalities Carotid artery stenosis, a CT angiogram of the neck done on March 2021 showed an estimated 80% stenosis of the right ICA and 50% stenosis of the left ICA at that time Hypertension Hyperlipidemia current tobacco dependence Chronic anemia Plan: The patient was seen and evaluated Labs and medications reviewed Titrate the FiO2 as tolerated Cleared for discharge from the pulmonary standpoint Transitioned from IV Solu-Medrol to prednisone taper We will continue to follow I have personally seen and examined the patient, performed the documentation and the assessment and plan as written. Number of minutes spent on the visit: 10.
[2022-11-04 12:58] VITALS: BP 96/57
--- NOTE | 2022-11-04 13:07 | P.DS ---
Providers Date of admission: 11/01/22 20:29 Expected date of discharge: 11/04/22 Attending physician: Gabe Fry MD Consults: 11/01/22 20:27 Consult Physician Routine Consulting Provider: Arvind Aleman Consult Reason/Comments: copd on bipap Do you want consulting provider notified?: Yes 11/02/22 11:11 Consult Physician Routine Consulting Provider: Huan Aleman Consult Reason/Comments: possible seizure Do you want consulting provider notified?: Yes Primary care physician: [facility] Course: The patient is a 72-year-old female with a PMH of COPD, chronic hypoxic respiratory failure on 4 L nasal cannula oxygen continuously at home, hypertension, and hyperlipidemia who presents to the emergency room with complaints of shortness of breath and a syncopal episode. The patient reports that she's been experiencing gradually worsening shortness of breath over the last 2 weeks, which she reports feels similar to her prior COPD exacerbations. Of note, the patient initially presented to the hospital earlier in the day with complaints of shortness of breath but decided to leave AMA. Shortly after returning home, the patient was found in the garage by her having lost consciousness. The patient does not recall the episode and states that the last thing she remembers was tending to some food and then waking up on the ground. Attempted to contact the patient's via phone with no response. The patient denied any prior history of syncope. She did report having hit her head on the right posterior side during the episode to which she reports mild pain. Chest CTA in the emergency room was negative for PE but revealed mild emphysematous changes. CT brain revealed a large right scalp hematoma without evidence of a fracture. EKG revealed sinus rhythm at 97 bpm with poor R-wave progression. Laboratory evaluation was remarkable for leukocytosis of 11.4, hemoglobin 10.9 (similar to baseline), ABG showing pCO2 51, sodium 129, chloride 90, lactic acid 2.8, troponin less than 0.012. Neurology was consulted and thought her syncopal episodes were related to vasovagal response from coughing fits. EEG was negative. MRI brain was ordered but patient refused. Orthostats were negative. Vascular surgery was consulted with regard to her carotid stenosis recommended medical management with no surgical intervention due to her respiratory status. Pulmonology was consulted and followed the patient her hospitalization. She received continuous and as needed bronchodilators along with Solu-Medrol. Solu-Medrol was transitioned to prednisone on discharge. Patient was seen and examined this morning with her at bedside. She reports breathing back to baseline and is requesting to be discharged home. Pertinent studies include brain CT, chest CTA, echocardiogram, EEG. She is advised follow-up with her PCP within 1-2 days of discharge. She is advised follow-up with pulmonology on 11/17. She'll be discharged home on a prednisone taper. General: non toxic, mild distress, appears at stated age, dyspnea Derm: warm, dry Head: atraumatic, normocephalic, symmetric Eyes: EOMI, no lid lag, anicteric sclera Mouth: no lip lesion, mucus membranes moist Cardiovascular: Tachycardic, no murmur Lungs: Decreased BS bilateral with scattered wheezing, no rhonchi, no rales , no accessory muscle use Ext: no gross muscle atrophy, no edema, no contractures Neuro: no focal neuro deficits Psych: Alert, oriented, appropriate affect Discharge Diagnosis: Acute COPD exacerbation with acute on chronic hypoxic and hypercapnic respiratory failure Syncope, likely vasovagal Hypochloremic hyponatremia Elevated D-Dimer Carotid stenosis Normocytic anemia Resolved: Lactic acidosis Chronic conditions: Hypertension, hyperlipidemia This complex discharge took 35 minutes complete. Patient Condition at Discharge: Stable Plan - Discharge Summary Discharge Rx Participant: No New Discharge Prescriptions: New predniSONE See Taper PO DIRECTED #30 tab Continue Formoterol Fumarate [Perforomist] 20 mcg INHALATION RT-BID Budesonide [Pulmicort] 0.5 mg INHALATION RT-BID Albuterol Nebulized [Ventolin Nebulized] 2.5 mg INHALATION RT-QID Triamterene/Hydrochlorothiazid [Triamterene-Hctz 37.5-25 mg Tb] 1 tab PO DAILY PARoxetine HCL 30 mg PO DAILY Omeprazole 20 mg PO DAILY Yupelri 175 mcg INHALATION RT-DAILY busPIRone HCL [Buspar] 7.5 mg PO DAILY Clopidogrel [Plavix] 75 mg PO DAILY rOPINIRole HCL [rOPINIRole HCL ER (XL)] 2 mg PO BID Aspirin EC [Ecotrin Low Dose] 81 mg PO DAILY Atorvastatin [Lipitor] 40 mg PO DAILY Ferrous Sulfate [Iron (65 MG Elemental)] 325 mg PO DAILY Discontinued predniSONE [Deltasone] 20 mg PO BID #10 tab Azithromycin [Zithromax Z Pack] See Taper PO DIRECTED Discharge Medication List Albuterol Nebulized [Ventolin Nebulized] 2.5 mg INHALATION RT-QID 07/13/20 [History] Budesonide [Pulmicort] 0.5 mg INHALATION RT-BID 07/13/20 [History] Formoterol Fumarate [Perforomist] 20 mcg INHALATION RT-BID 07/13/20 [History] Omeprazole 20 mg PO DAILY 07/13/20 [History] PARoxetine HCL 30 mg PO DAILY 07/13/20 [History] Triamterene/Hydrochlorothiazid [Triamterene-Hctz 37.5-25 mg Tb] 1 tab PO DAILY 07/13/20 [History] Yupelri 175 mcg INHALATION RT-DAILY 07/13/20 [History] Atorvastatin [Lipitor] 40 mg PO DAILY 10/20/21 [History] Clopidogrel [Plavix] 75 mg PO DAILY 04/05/22 [History] busPIRone HCL [Buspar] 7.5 mg PO DAILY 04/05/22 [History] Aspirin EC [Ecotrin Low Dose] 81 mg PO DAILY 11/01/22 [History] Ferrous Sulfate [Iron (65 MG Elemental)] 325 mg PO DAILY 11/01/22 [History] rOPINIRole HCL [rOPINIRole HCL ER (XL)] 2 mg PO BID 11/01/22 [History] predniSONE See Taper PO DIRECTED #30 tab 11/04/22 [Rx] Follow up Appointment(s)/Referral(s): Lurdes Gunderson MD [Primary Care Provider] - 1-2 days Jcarlos Ansari MD [STAFF PHYSICIAN] - 11/17/22 8:45 am Discharge Disposition: HOME SELF-CARE
[2022-11-04 13:24] LABS: African American GFR (CKD) >90 (>60 ml/min/1.73 sqM); Anion Gap 7 mmol/L; Blood Urea Nitrogen 16 mg/dL (7-17); Calcium 9.3 mg/dL (8.4-10.2); Carbon Dioxide 29 mmol/L (22-30); Chloride 98 mmol/L (98-107); Glucose 127 mg/dL (74-99); Non-African American GFR(CKD) >90 (>60 ml/min/1.73 sqM); Potassium 4.5 mmol/L (3.5-5.1); Sodium 134 mmol/L (137-145)
[2022-11-04] MEDS ORDERED: SYMBICORT 160-4.5 MCG INHALER INHALATION SCH (20:00)
[2022-11-05] MEDS ORDERED: TIOTROPIUM 2.5 MCG INHALER INHALATION SCH (08:00)
[2022-11-05] MEDS ORDERED: predniSONE 20 MG TAB PO SCH (09:00)
== END 2022-11-04 13:31 | disposition home or self-care (01) | DRG 190 ==
LOC: EC 17:20 → 3SCARD 20:29 → 4SSUR 11-03 02:40
PROVIDERS: ADMIT Internal Medicine; ATTEND Internal Medicine
DX: J44.1 Chronic obstructive pulmonary disease with (acute) exacerbation (principal); J96.21 Acute and chronic respiratory failure with hypoxia; U07.1 COVID-19; J96.22 Acute and chronic respiratory failure with hypercapnia; E87.20 Acidosis, unspecified; E87.1 Hypo-osmolality and hyponatremia; J44.0 Chronic obstructive pulmonary disease with (acute) lower respiratory infection; J20.9 Acute bronchitis, unspecified; E78.5 Hyperlipidemia, unspecified; Z99.81 Dependence on supplemental oxygen; E87.8 Other disorders of electrolyte and fluid balance, not elsewhere classified; D64.9 Anemia, unspecified; S00.03XA Contusion of scalp, initial encounter; I10 Essential (primary) hypertension; I65.21 Occlusion and stenosis of right carotid artery; F41.9 Anxiety disorder, unspecified; G25.81 Restless legs syndrome; R41.9 Unspecified symptoms and signs involving cognitive functions and awareness; Z86.73 Personal history of transient ischemic attack (TIA), and cerebral infarction without residual deficits; Z87.891 Personal history of nicotine dependence; Z79.02 Long term (current) use of antithrombotics/antiplatelets; Z79.82 Long term (current) use of aspirin; Z79.899 Other long term (current) drug therapy; Z85.828 Personal history of other malignant neoplasm of skin
CPT/HCPCS: 36415; 36600; 70450; 71045; 71275; 80048; 80053; 82805; 83605; 84145; 84484; 85025; 85027; 85379; 85610; 85730; 87040; 87502; 87634; 93005; 93306; 94640; 94660; 94760; 95816; 96361; 96365; 96366; 96372; 96375; 96376; 99291

== ENCOUNTER 2023-12-23 19:30 | Inpatient (IN) | payer MEDICARE, BC ==
--- NOTE | 2023-12-23 19:56 | ED ---
General Adult HPI - General Chief complaint: Recheck/Abnormal Lab/Rx Stated complaint: abn labs Time Seen by Provider: 12/23/23 19:52 Source: patient Mode of arrival: ambulatory Limitations: no limitations - History of Present Illness Initial comments: Patient presents to the ED with her for evaluation. Patient states that she had some blood work ordered by her primary care provider, and she was notified tonight that her hemoglobin was 6.8. She states that she was instructed to come to the ED. Patient states that she has been generally weak and dyspneic for the past several months, but she states that her symptoms have become worse over the past couple of days. Patient states that she has chronically on 4 L of home O2 due to COPD. Patient admits to having dark- colored stools over the past couple of months. Patient denies having any pain, fever or chills, headache, focal numbness/weakness/neuro deficit, chest pain or pressure, cough or cold symptoms, palpitations, dizziness, syncope, abdominal pain, nausea or vomiting, diarrhea, bloody stool, vaginal bleeding, dysuria/hematuria/urinary symptoms, leg or calf swelling or pain, or any other symptoms or complaints. Patient is on Plavix and takes a daily baby aspirin. - Related Data Home Medications Medication Instructions Recorded Confirmed Albuterol Nebulized [Ventolin 2.5 mg INHALATION RT-QID 07/13/20 11/01/22 Nebulized] Budesonide [Pulmicort] 0.5 mg INHALATION RT-BID 07/13/20 11/01/22 Formoterol Fumarate [Perforomist] 20 mcg INHALATION RT-BID 07/13/20 11/01/22 Omeprazole 20 mg PO DAILY 07/13/20 11/01/22 PARoxetine HCL 30 mg PO DAILY 07/13/20 11/01/22 Triamterene/Hydrochlorothiazid 1 tab PO DAILY 07/13/20 11/01/22 [Triamterene-Hctz 37.5-25 mg Tb] Yupelri 175 mcg INHALATION RT-DAILY 07/13/20 11/01/22 Atorvastatin [Lipitor] 40 mg PO DAILY 10/20/21 11/01/22 Clopidogrel [Plavix] 75 mg PO DAILY 04/05/22 11/01/22 busPIRone HCL [Buspar] 7.5 mg PO DAILY 04/05/22 11/01/22 Aspirin EC [Ecotrin Low Dose] 81 mg PO DAILY 11/01/22 11/01/22 Ferrous Sulfate [Iron (65 MG 325 mg PO DAILY 11/01/22 11/01/22 Elemental)] rOPINIRole HCL [rOPINIRole HCL ER 2 mg PO BID 11/01/22 11/01/22 (XL)] Previous Rx's Medication Instructions Recorded predniSONE See Taper PO DIRECTED #30 tab 11/04/22 Allergies Allergy/AdvReac Type Severity Reaction Status Date / Time No Known Allergies Allergy Verified 12/23/23 19:37 Review of Systems ROS Statement: Those systems with pertinent positive or pertinent negative responses have been documented in the HPI. ROS Other: All systems not noted in ROS Statement are negative. 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 O2 4-5 L use 13/02. RESTLESS LEGS. Hx skin cancer multiple times. History of Any Multi-Drug Resistant Organisms: None Reported Past Surgical History: Section, Tonsillectomy Additional Past Surgical History / Comment(s): Growth removed from throat. Past Anesthesia/Blood Transfusion Reactions: No Reported Reaction Past Psychological History: Anxiety Smoking Status: Current every day smoker Past Alcohol Use History: Occasional Past Drug Use History: None Reported - Past Family History Father Family Medical History: Myocardial Infarction (SC) Additional Family Medical History / Comment(s): at age 29 of SC. Mother Family Medical History: Cancer, CVA/TIA Additional Family Medical History / Comment(s): Breast cancer, passed at age 83. General Exam Limitations: no limitations General appearance: alert Head exam: Present: atraumatic Eye exam: Present: normal appearance ENT exam: Present: mucous membranes moist Neck exam: Present: other (Trachea is in midline) Respiratory exam: Present: wheezes. Absent: respiratory distress, rales, rhonchi, stridor Cardiovascular Exam: Present: regular rate, normal rhythm, normal heart sounds, other (Normal radial pulses bilaterally) GI/Abdominal exam: Present: soft. Absent: distended, tenderness, guarding Rectal exam: Present: normal rectal tone, other (Brown-colored stool was retrieved on digital rectal examination and sent for Hemoccult testing). Absent: bloody stool, tenderness Extremities exam: Absent: tenderness, pedal edema, calf tenderness Neurological exam: Present: alert, oriented X3 Psychiatric exam: Present: normal affect Skin exam: Present: warm, dry, pallor Course Vital Signs 12/23/23 12/23/23 19:34 19:48 Temperature 98.3 F Pulse Rate 91 84 Respiratory 20 22 Rate Blood Pressure 76/43 119/58 O2 Sat by Pulse 96 98 Oximetry - Reevaluation(s) Reevaluation #1: 12/23/23 21:34 Case, H&P, test results and ED management thus far were discussed with Dr. Denson. He accepts hospital admission. He has no further recommendations at this time. 12/23/23 21:46 Patient denies development of any new symptoms while in the ED. Patient and are aware of the patient's test results, and they both agree with hospital admission at this time. EKG Findings - EKG Comments: EKG Findings:: ED physician interpretation (interpreted by me): Normal sinus rhythm, no ectopy, ventricular rate of 84 bpm, normal [place] and QRS intervals, normal QT interval, normal axis, no ST or T wave abnormality Medical Decision Making - Medical Decision Making Was pt. sent in by a medical professional or institution (, PA, ECONOMIC CONSULTANT, urgent care, hospital, or skilled nursing...) When possible be specific @ -No Did you speak to anyone other than the patient for history (EMS, parent, family, police, friend...)? What history was obtained from this source @ -No Did you review nursing and triage notes (agree or disagree)? Why? @ -I reviewed and agree with nursing and triage notes Were old charts reviewed (outside hosp., previous admission, EMS record, old EKG, old radiological studies, urgent care reports/EKG's, skilled nursing records)? Report findings @ -No old charts were reviewed Differential Diagnosis (chest pain, altered mental status, abdominal pain women, abdominal pain men, vaginal bleeding, weakness, fever, dyspnea, syncope, headache, dizziness, GI bleed, back pain, seizure, CVA, palpatations, mental health, musculoskeletal)? @ -Differential Weakness: Hypoglycemia, hyperglycemia, shock, sepsis, hyponatremia, anemia, GI bleed, coagulopathy, infection, SC, adverse medicine reaction, dyspnea, COPD, pneumonia, CHF, pleural effusion, asthma, this is not meant to be an all- inclusive list. EKG interpreted by me (3pts min.). @ -As above X-rays interpreted by me (1pt min.). @ -Chest x-ray was reviewed myself and shows emphysematous changes and no definite focal consolidation. CT interpreted by me (1pt min.). @ -None done U/S interpreted by me (1pt. min.). @ -None done What testing was considered but not performed or refused? (CT, X-rays, U/S, labs)? Why? @ -None What meds were considered but not given or refused? Why? @ -None Did you discuss the management of the patient with other professionals (professionals i.e. DrLj, PA, ECONOMIC CONSULTANT, lab, RT, psych nurse, social media sr strategy manager, strip polisher, teacher, supply officer, case finishing machine adjuster)? Give summary @ -No Was smoking cessation discussed for >3mins.? @ -No Was critical care preformed (if so, how long)? @ -Yes, 30 minutes. Were there social determinants of health that impacted care today? How? (Homelessness, low income, unemployed, alcoholism, drug addiction, transportation, low edu. Level, literacy, decrease access to med. care, penitentiary, rehab)? @ -No Was there de-escalation of care discussed even if they declined (Discuss DNR or withdrawal of care, Hospice)? DNR status @ -No What co-morbidities impacted this encounter? (DM, HTN, Smoking, COPD, CAD, Cancer, CVA, ARF, Chemo, Hep., AIDS, mental health diagnosis, sleep apnea, morbid obesity)? @ -None Was patient admitted / discharged? Hospital course, mention meds given and route, prescriptions, significant lab abnormalities, going to OR and other pertinent info. @ -Patient is noted to be anemic with a hemoglobin of 7.4 on lab evaluation in the ED. Patient had an initial low blood pressure reading, but her blood pressure has since normalized and been stable. Patient's Hemoccult test is negative. Given the patient reports increased weakness and dyspnea, transfusion with packed RBCs was initiated for treatment of symptomatic anemia. Case was discussed with Dr. Denson who has accepted hospital admission. Undiagnosed new problem with uncertain prognosis? @ -No Drug Therapy requiring intensive monitoring for toxicity (Heparin, Nitro, Insulin, Cardizem)? @ -No Were any procedures done? @ -No Diagnosis/symptom? @ -Symptomatic anemia Acute, or Chronic, or Acute on Chronic? @ -Default Uncomplicated (without systemic symptoms) or Complicated (systemic symptoms)? @ -Default Side effects of treatment? @ -No Exacerbation, Progression, or Severe Exacerbation? @ -No Poses a threat to life or bodily function? How? (Chest pain, USA, SC, pneumonia, PE, COPD, DKA, ARF, appy, cholecystitis, CVA, Diverticulitis, Homicidal, Suicidal, threat to staff... and all critical care pts) @ -No - Lab Data Result diagrams: 12/23/23 19:59 12/23/23 19:59 Lab Results 12/23/23 12/23/23 12/23/23 Range/Units 19:59 19:59 19:59 WBC 8.3 (3.8-10.6) k/uL RBC 3.07 L (3.80-5.40) m/uL Hgb 7.4 L (11.4-16.0) gm/dL Hct 24.4 L (34.0-46.0) % MCV 79.4 L (80.0-100.0) fL MCH 23.9 L (25.0-35.0) pg MCHC 30.1 L (31.0-37.0) g/dL RDW 15.3 (11.5-15.5) % Plt Count 395 (150-450) k/uL MPV 8.0 Neutrophils % 67 % Lymphocytes % 20 % Monocytes % 7 % Eosinophils % 3 % Basophils % 1 % Neutrophils # 5.5 (1.3-7.7) k/uL Lymphocytes # 1.7 (1.0-4.8) k/uL Monocytes # 0.6 (0-1.0) k/uL Eosinophils # 0.3 (0-0.7) k/uL Basophils # 0.0 (0-0.2) k/uL Hypochromasia Marked PT 9.6 L (10.0-12.5) sec INR 0.8 (<1.2) APTT 22.5 (22.0-30.0) sec Sodium 137 (137-145) mmol/L Potassium 4.0 (3.5-5.1) mmol/L Chloride 98 (98-107) mmol/L Carbon Dioxide 35 H (22-30) mmol/L Anion Gap 4 mmol/L BUN 19 H (7-17) mg/dL Creatinine 0.69 (0.52-1.04) mg/dL Est GFR (CKD-EPI)AfAm >90 (>60 ml/min/1.73 sqM) Est GFR (CKD-EPI)NonAf 86 (>60 ml/min/1.73 sqM) Glucose 114 H (74-99) mg/dL Plasma Lactic Acid Froilan (0.7-2.0) mmol/L Calcium 8.9 (8.4-10.2) mg/dL Total Bilirubin 0.4 (0.2-1.3) mg/dL AST 26 (14-36) U/L ALT 18 (4-34) U/L Alkaline Phosphatase 103 (38-126) U/L Troponin I (0.000-0.034) ng/mL Total Protein 6.6 (6.3-8.2) g/dL Albumin 4.0 (3.5-5.0) g/dL Stool Occult Blood (Negative) Blood Type Blood Type Recheck Bld Type Recheck Status Antibody Screen Spec Expiration Date 12/23/23 12/23/23 12/23/23 Range/Units 19:59 19:59 19:59 WBC (3.8-10.6) k/uL RBC (3.80-5.40) m/uL Hgb (11.4-16.0) gm/dL Hct (34.0-46.0) % MCV (80.0-100.0) fL MCH (25.0-35.0) pg MCHC (31.0-37.0) g/dL RDW (11.5-15.5) % Plt Count (150-450) k/uL MPV Neutrophils % % Lymphocytes % % Monocytes % % Eosinophils % % Basophils % % Neutrophils # (1.3-7.7) k/uL Lymphocytes # (1.0-4.8) k/uL Monocytes # (0-1.0) k/uL Eosinophils # (0-0.7) k/uL Basophils # (0-0.2) k/uL Hypochromasia PT (10.0-12.5) sec INR (<1.2) APTT (22.0-30.0) sec Sodium (137-145) mmol/L Potassium (3.5-5.1) mmol/L Chloride (98-107) mmol/L Carbon Dioxide (22-30) mmol/L Anion Gap mmol/L BUN (7-17) mg/dL Creatinine (0.52-1.04) mg/dL Est GFR (CKD-EPI)AfAm (>60 ml/min/1.73 sqM) Est GFR (CKD-EPI)NonAf (>60 ml/min/1.73 sqM) Glucose (74-99) mg/dL Plasma Lactic Acid Froilan 1.2 (0.7-2.0) mmol/L Calcium (8.4-10.2) mg/dL Total Bilirubin (0.2-1.3) mg/dL AST (14-36) U/L ALT (4-34) U/L Alkaline Phosphatase (38-126) U/L Troponin I <0.012 (0.000-0.034) ng/mL Total Protein (6.3-8.2) g/dL Albumin (3.5-5.0) g/dL Stool Occult Blood (Negative) Blood Type O Positive Blood Type Recheck No Previous Record Bld Type Recheck Status CABO Indicated Antibody Screen NEGATIVE Spec Expiration Date 12/26/2023 - 235812/23/23 Range/Units 20:05 WBC (3.8-10.6) k/uL RBC (3.80-5.40) m/uL Hgb (11.4-16.0) gm/dL Hct (34.0-46.0) % MCV (80.0-100.0) fL MCH (25.0-35.0) pg MCHC (31.0-37.0) g/dL RDW (11.5-15.5) % Plt Count (150-450) k/uL MPV Neutrophils % % Lymphocytes % % Monocytes % % Eosinophils % % Basophils % % Neutrophils # (1.3-7.7) k/uL Lymphocytes # (1.0-4.8) k/uL Monocytes # (0-1.0) k/uL Eosinophils # (0-0.7) k/uL Basophils # (0-0.2) k/uL Hypochromasia PT (10.0-12.5) sec INR (<1.2) APTT (22.0-30.0) sec Sodium (137-145) mmol/L Potassium (3.5-5.1) mmol/L Chloride (98-107) mmol/L Carbon Dioxide (22-30) mmol/L Anion Gap mmol/L BUN (7-17) mg/dL Creatinine (0.52-1.04) mg/dL Est GFR (CKD-EPI)AfAm (>60 ml/min/1.73 sqM) Est GFR (CKD-EPI)NonAf (>60 ml/min/1.73 sqM) Glucose (74-99) mg/dL Plasma Lactic Acid Froilan (0.7-2.0) mmol/L Calcium (8.4-10.2) mg/dL Total Bilirubin (0.2-1.3) mg/dL AST (14-36) U/L ALT (4-34) U/L Alkaline Phosphatase (38-126) U/L Troponin I (0.000-0.034) ng/mL Total Protein (6.3-8.2) g/dL Albumin (3.5-5.0) g/dL Stool Occult Blood Negative (Negative) Blood Type Blood Type Recheck Bld Type Recheck Status Antibody Screen Spec Expiration Date - Radiology Data Chest x-ray: Emphysematous changes, no definite focal consolidation Critical Care Time Critical Care Time: Yes Total Critical Care Time: 30 Disposition Clinical Impression: Symptomatic anemia Disposition: ADMITTED IP TO THIS [facility] Condition: Stable Is patient prescribed a controlled substance at d/c from ED?: No Time of Disposition: 21:34
[2023-12-23 20:29] LABS: Basophils % (A) 1 %; Eosinophils # (A) 0.3 k/uL (0-0.7); Eosinophils % (A) 3 %; HCT 24.4 % (34.0-46.0); HGB 7.4 gm/dL (11.4-16.0); Hypochromasia Marked; Lymphocytes # (A) 1.7 k/uL (1.0-4.8); Lymphocytes % (A) 20 %; MCH 23.9 pg (25.0-35.0); MCHC 30.1 g/dL (31.0-37.0); MCV 79.4 fL (80.0-100.0); Monocytes # (A) 0.6 k/uL (0-1.0); Monocytes % (A) 7 %; Neutrophils # (A) 5.5 k/uL (1.3-7.7); Neutrophils % (A) 67 %; Platelet Count 395 k/uL (150-450); RBC 3.07 m/uL (3.80-5.40); RDW 15.3 % (11.5-15.5); WBC 8.3 k/uL (3.8-10.6)
[2023-12-23 20:43] LABS: INR 0.8 (<1.2); Partial Thromboplastin Time 22.5 sec (22.0-30.0); Prothrombin Time 9.6 sec (10.0-12.5)
[2023-12-23 20:53] LABS: ALT 18 U/L (4-34); AST 26 U/L (14-36); African American GFR (CKD) >90 (>60 ml/min/1.73 sqM); Alkaline Phosphatase 103 U/L (38-126); Anion Gap 4 mmol/L; Blood Urea Nitrogen 19 mg/dL (7-17); Calcium 8.9 mg/dL (8.4-10.2); Carbon Dioxide 35 mmol/L (22-30); Chloride 98 mmol/L (98-107); Glucose 114 mg/dL (74-99); Non-African American GFR(CKD) 86 (>60 ml/min/1.73 sqM); Sodium 137 mmol/L (137-145); Total Bilirubin 0.4 mg/dL (0.2-1.3); Total Protein 6.6 g/dL (6.3-8.2)
[2023-12-23] MEDS: PANTOPRAZOLE 40 MG/10 ML VIAL IVP STA (21:06)
[2023-12-23] MEDS: SODIUM CHLORIDE 0.9% 500 ML 500 ML IV STA (21:08)
[2023-12-23] MEDS ORDERED: NALOXONE 0.4 MG/ML 1 ML VIAL IV PRN (21:35)
--- NOTE | 2023-12-23 23:24 | XR ---
EXAM: XR chest 1V portable CLINICAL INDICATION:Female, 73 years old with history of dyspnea; [facility] COMPARISON: 11/02/2022 TECHNIQUE: Chest single view. FINDINGS: Lines/tubes/devices: Monitor leads and tubing over the chest. No indwelling lines are seen. Cardiomediastinum: Cardiac silhouette appears normal in size. Atherosclerotic calcifications of the aorta. Unremarkable mediastinal silhouette. Vasculature: No increased pulmonary vasculature. Lungs/pleura: No consolidation, sizeable effusion, or visible pneumothorax. Lungs appear mildly hyperinflated with mild interstitial coarsening, findings suggest possibility of COPD/emphysema. Bones/soft tissues: Bony thorax appears grossly intact as seen. Regional soft tissues appear unremarkable. IMPRESSION: No acute findings, or significant interval change.
[2023-12-23] MEDS: ALBUTEROL NEB (CONC) 2.5 MG/0.5 ML INHALATION STA (23:39)
[2023-12-24] MEDS: ALBUTEROL NEBULIZED 2.5 MG/3 ML INHALATION STA (01:20)
--- NOTE | 2023-12-24 02:24 | P.HPIM ---
History of Present Illness H&P Date: 12/24/23 Patient is a 73-year-old female with a PMH of COPD with chronic hypoxic respiratory failure on 4 L nasal cannula oxygen, hypertension, and hyperlipidemia who was sent to the emergency room by her PCP after abnormal blood work revealed her hemoglobin was 6.8. Patient reports that over the past several weeks, she has been feeling more tired than usual. She continues to use her nasal cannula oxygen at home without change. She denies noticing bright red blood in stool but does report darker stools than usual without being black or tarry. Denies experiencing any additional complaints. She does report almost daily postprandial abdominal discomfort over the past 1 month. Denies chest discomfort, shortness of breath, fever, chills, cough, nausea, vomiting, diarrhea. Does report some constipation. Chest x-ray in the emergency room was unremarkable with EKG showing sinus rhythm at 84 bpm as reviewed by me with no ST/T wave changes noted. Laboratory evaluation was remarkable for hemoglobin of 7.4 (down from 10.3 on 11/13), MCV 79.4, fecal occult blood negative, CO2 35, BUN 19, creatinine 0.69, glucose 114. ED documentation reviewed and case discussed with ED provider. Review of systems: Pertinent positives and negatives as discussed in HPI, a complete review of systems was performed and all other systems are negative. Physical examination: Vital signs reviewed General: non toxic, no distress, appears at stated age, obese Derm: no unusual rashes/lesions, warm Head: atraumatic, normocephalic, symmetric Eyes: EOMI, no lid lag, anicteric sclera, pupils equal round reactive to light ENT: Nose and ears atraumatic Neck: No cervical lymphadenopathy, trachea midline, supple Mouth: no lip lesion, mucus membranes moist Cardiovascular: S1S2 reg, no murmur, positive dorsalis pedis pulse bilateral, no edema Lungs: Mild bilateral wheezing without rhonchi or rales, no accessory muscle use Abdominal: soft, nontender to palpation, no guarding Ext: muscle strength 5 out of 5 in all 4 extremities grossly, no gross muscle atrophy, no contractures, Neuro: CN II-XI grossly intact, no gross focal neuro deficits Psych: Alert, oriented, appropriate affect Assessment: Microcytic anemia Chronic conditions: COPD with chronic hypoxic respiratory failure, hypertension, hyperlipidemia Imaging: Chest x-ray in the emergency room was unremarkable with EKG showing sinus rhythm at 84 bpm as reviewed by me with no ST/T wave changes noted. Data Review: Laboratory evaluation was remarkable for hemoglobin of 7.4 (down from 10.3 on 11/13), MCV 79.4, fecal occult blood negative, CO2 35, BUN 19, creatinine 0.69, glucose 114. Plan: Check anemia panel Hematology consult Obtain right upper quadrant ultrasound Start Protonix IVFs with NS 75 ml/hr Resume home medications Resume home meds once reconciled 1 U pRBCs ordered by ED. 2 units were ordered, 1 of which was cancelled. DVT prophylaxis: Lovenox Subq The patient is admitted with an anticipated less than 2 midnight stay for evaluation of anemia CODE STATUS: Full Code Discussed with: Patient Anticipated discharge place: Home Past Medical History Past Medical History: Cancer, COPD, GERD/Reflux, Hypertension Additional Past Medical History / Comment(s): RIGHT CAROTID 80% BLOCK (SURGERY DELAYED DUE TO RESP STATUS). O2 4-5 L use 13/02. RESTLESS LEGS. Hx skin cancer multiple times. History of Any Multi-Drug Resistant Organisms: None Reported Past Surgical History: Section, Tonsillectomy Additional Past Surgical History / Comment(s): Growth removed from throat. Past Anesthesia/Blood Transfusion Reactions: No Reported Reaction Past Psychological History: Anxiety Smoking Status: Current every day smoker Past Alcohol Use History: Occasional Past Drug Use History: None Reported - Past Family History Father Family Medical History: Myocardial Infarction ([place]) Additional Family Medical History / Comment(s): at age 29 of [place]. Mother Family Medical History: Cancer, CVA/TIA Additional Family Medical History / Comment(s): Breast cancer, passed at age 83. Medications and Allergies Home Medications Medication Instructions Recorded Confirmed Type Albuterol Nebulized [Ventolin 2.5 mg INHALATION RT-QID 07/13/20 11/01/22 History Nebulized] Budesonide [Pulmicort] 0.5 mg INHALATION RT-BID 07/13/20 11/01/22 History Formoterol Fumarate [Perforomist] 20 mcg INHALATION RT-BID 07/13/20 11/01/22 History Omeprazole 20 mg PO DAILY 07/13/20 11/01/22 History PARoxetine HCL 30 mg PO DAILY 07/13/20 11/01/22 History Triamterene/Hydrochlorothiazid 1 tab PO DAILY 07/13/20 11/01/22 History [Triamterene-Hctz 37.5-25 mg Tb] Yupelri 175 mcg INHALATION RT-DAILY 07/13/20 11/01/22 History Atorvastatin [Lipitor] 40 mg PO DAILY 10/20/21 11/01/22 History Clopidogrel [Plavix] 75 mg PO DAILY 04/05/22 11/01/22 History busPIRone HCL [Buspar] 7.5 mg PO DAILY 04/05/22 11/01/22 History Aspirin EC [Ecotrin Low Dose] 81 mg PO DAILY 11/01/22 11/01/22 History Ferrous Sulfate [Iron (65 MG 325 mg PO DAILY 11/01/22 11/01/22 History Elemental)] rOPINIRole HCL [rOPINIRole HCL ER 2 mg PO BID 11/01/22 11/01/22 History (XL)] predniSONE See Taper PO DIRECTED #30 tab 11/04/22 Rx Allergies Allergy/AdvReac Type Severity Reaction Status Date / Time No Known Allergies Allergy Verified 12/23/23 19:37 Physical Exam Vitals: Vital Signs Temp Pulse Resp BP Pulse Ox 12/24/23 01:35 75 12/24/23 01:31 98 F 75 22 130/57 98 12/24/23 01:22 77 12/24/23 00:55 98 F 78 21 105/64 98 12/24/23 00:25 98.6 F 83 23 120/90 98 12/24/23 00:15 98.4 F 83 22 85/42 97 12/23/23 19:48 84 22 119/58 98 12/23/23 19:34 98.3 F 91 20 76/43 96 Intake and Output 12/23/23 12/23/23 12/24/23 14:59 22:59 06:59 Intake Total 0 Balance 0 Intake: Blood Product 0 Unit 0 Other: Weight 81.647 kg Results CBC & Chem 7: 12/23/23 19:59 12/23/23 19:59 Labs: Abnormal Lab Results - Last 24 Hours (Table) 12/23/23 12/23/23 12/23/23 Range/Units 19:59 19:59 19:59 RBC 3.07 L (3.80-5.40) m/uL Hgb 7.4 L (11.4-16.0) gm/dL Hct 24.4 L (34.0-46.0) % MCV 79.4 L (80.0-100.0) fL MCH 23.9 L (25.0-35.0) pg MCHC 30.1 L (31.0-37.0) g/dL PT 9.6 L (10.0-12.5) sec Carbon Dioxide 35 H (22-30) mmol/L BUN 19 H (7-17) mg/dL Glucose 114 H (74-99) mg/dL Crossmatch 12/23/23 Range/Units 19:59 RBC (3.80-5.40) m/uL Hgb (11.4-16.0) gm/dL Hct (34.0-46.0) % MCV (80.0-100.0) fL MCH (25.0-35.0) pg MCHC (31.0-37.0) g/dL PT (10.0-12.5) sec Carbon Dioxide (22-30) mmol/L BUN (7-17) mg/dL Glucose (74-99) mg/dL Crossmatch See Detail
[2023-12-24] MEDS: ALBUTEROL NEBULIZED 2.5 MG/3 ML INHALATION SCH (04:37)
[2023-12-24 04:48] LABS: ALT 16 U/L (4-34); AST 25 U/L (14-36); African American GFR (CKD) >90 (>60 ml/min/1.73 sqM); Albumin 3.5 g/dL (3.5-5.0); Alkaline Phosphatase 100 U/L (38-126); Anion Gap 2 mmol/L; Blood Urea Nitrogen 14 mg/dL (7-17); Calcium 8.5 mg/dL (8.4-10.2); Carbon Dioxide 33 mmol/L (22-30); Chloride 102 mmol/L (98-107); Glucose 119 mg/dL (74-99); Non-African American GFR(CKD) 88 (>60 ml/min/1.73 sqM); Potassium 4.1 mmol/L (3.5-5.1); Sodium 137 mmol/L (137-145); Total Bilirubin 0.5 mg/dL (0.2-1.3)
[2023-12-24] MEDS: SODIUM CHLORIDE 0.9% 1,000 ML IV SCH (04:57)
[2023-12-24 07:12] LABS: Basophils % (A) 1 %; Eosinophils # (A) 0.2 k/uL (0-0.7); Eosinophils % (A) 2 %; HCT 28.1 % (34.0-46.0); HGB 8.6 gm/dL (11.4-16.0); Hypochromasia Marked; Lymphocytes # (A) 1.3 k/uL (1.0-4.8); Lymphocytes % (A) 17 %; MCH 25.2 pg (25.0-35.0); MCHC 30.5 g/dL (31.0-37.0); MCV 82.6 fL (80.0-100.0); Mean Platelet Volume 7.9; Monocytes # (A) 0.5 k/uL (0-1.0); Monocytes % (A) 6 %; Neutrophils # (A) 5.5 k/uL (1.3-7.7); Neutrophils % (A) 72 %; Platelet Count 332 k/uL (150-450); Poikilocytosis Slight; RDW 15.7 % (11.5-15.5); WBC 7.7 k/uL (3.8-10.6)
--- NOTE | 2023-12-24 08:07 | US ---
EXAMINATION TYPE: US abdomen limited DATE OF EXAM: 12/24/2023 COMPARISON: US 07/29/22 CLINICAL INDICATION: Female, 73 years old with history of RUQ; RUQ pain TECHNIQUE: Multiple sonographic images of the right upper quadrant are obtained. FINDINGS: EXAM MEASUREMENTS: Liver Length: 15.1 cm Gallbladder Wall: 0.2 cm CBD: 0.3 cm Right Kidney: 10.8x5.1x5.4 cm Pancreas: mostly obscured by bowel gas Liver: upper limits, coarse echotexture, slightly nodular contour Gallbladder: area previously believed to be a GB polyp may represent Rokitansky-Aschoff sinus with c omet tail artifact ?adenomyomatosis? area exhibits twinkle artifact on color doppler evaluation Evidence for sonographic Short's sign: No CBD: wnl Right Kidney: No hydronephrosis or masses seen exam limited by patient being SOB, overlying bowel gas, and body habitus IMPRESSION: 1. No change in the echogenic focus in the anterior wall of gallbladder consistent with a polyp. 2. No gallstones or gallbladder distention or wall thickening. 3. Pancreas obscured by bowel gas. 4. Unremarkable liver and right kidney.
[2023-12-24] MEDS ORDERED: ALBUTEROL NEBULIZED 2.5 MG/3 ML INHALATION PRN (09:31)
[2023-12-24] MEDS: BUDESONIDE 1 MG/2 ML NEBU INHALATION SCH (09:38)
[2023-12-24] MEDS: FORMOTEROL FUMARATE 20 MCG/2 ML NEBU INHALATION SCH (09:38)
[2023-12-24 09:42] LABS: % Iron Saturation 3.65 (12.00-45.00); Ferritin 7.8 ng/mL (10.0-291.0); Iron 19 UG/DL (50-170); Total Iron Binding Capacity 521 UG/DL (228-460)
[2023-12-24] MEDS ORDERED: CLOPIDOGREL 75 MG TAB PO SCH (09:45)
[2023-12-24] MEDS ORDERED: NON FORMULARY DRUG (Aspirin Ec 81 MG Tablet) PO SCH (09:45)
[2023-12-24] MEDS: PARoxetine 10 MG TAB PO SCH (10:23)
[2023-12-24] MEDS: PANTOPRAZOLE 40 MG/10 ML VIAL IVP SCH (10:23)
[2023-12-24] MEDS: ENOXAPARIN 40 MG/0.4 ML SYRINGE SQ SCH (10:24)
[2023-12-24] MEDS: TRIAMTERENE-HCTZ 37.5-25MG 1 EACH CAP PO SCH (11:18)
--- NOTE | 2023-12-24 13:16 | P.GSCN ---
History of Present Illness Consult date: 12/24/23 Reason for Consult: GI bleed History of present illness: is a 73-year-old female who has multiple medical problems. Patient was found have symptomatic anemia. Patient states she's had some dark-colored stools over the last several weeks. 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 O2 4-5 L use 13/02. RESTLESS LEGS. Hx skin cancer multiple times. History of Any Multi-Drug Resistant Organisms: None Reported Past Surgical History: Section, Tonsillectomy Additional Past Surgical History / Comment(s): Growth removed from throat. Past Anesthesia/Blood Transfusion Reactions: No Reported Reaction Past Psychological History: Anxiety Smoking Status: Current every day smoker Past Alcohol Use History: Occasional Past Drug Use History: None Reported - Past Family History Father Family Medical History: Myocardial Infarction ([place]) Additional Family Medical History / Comment(s): at age 29 of [place]. Mother Family Medical History: Cancer, CVA/TIA Additional Family Medical History / Comment(s): Breast cancer, passed at age 83. Medications and Allergies Home Medications Medication Instructions Recorded Confirmed Type Albuterol Nebulized [Ventolin 2.5 mg INHALATION RT-QID PRN 07/13/20 12/24/23 History Nebulized] Budesonide [Pulmicort] 0.5 mg INHALATION RT-BID 07/13/20 12/24/23 History Omeprazole 20 mg PO DAILY 07/13/20 11/01/22 History PARoxetine HCL 30 mg PO DAILY 07/13/20 12/24/23 History Triamterene/Hydrochlorothiazid 1 tab PO DAILY 07/13/20 12/24/23 History [Triamterene-Hctz 37.5-25 mg Tb] Yupelri 175 mcg INHALATION RT-DAILY 07/13/20 12/24/23 History Clopidogrel [Plavix] 75 mg PO DAILY 04/05/22 12/24/23 History busPIRone HCL [Buspar] 7.5 mg PO DAILY 04/05/22 12/24/23 History Aspirin EC [Ecotrin Low Dose] 81 mg PO DAILY 11/01/22 12/24/23 History rOPINIRole HCL [Requip] 4 mg PO HS 12/24/23 12/24/23 History Allergies Allergy/AdvReac Type Severity Reaction Status Date / Time No Known Allergies Allergy Verified 12/24/23 09:18 Surgical - Exam Vital Signs Temp Pulse Resp BP Pulse Ox 98.3 F 91 20 76/43 96 12/23/23 19:34 12/23/23 19:34 12/23/23 19:34 12/23/23 19:34 12/23/23 19:34 - General well developed, well nourished, no distress - Eyes PERRL - ENT normal pinna - Neck no masses - Respiratory normal expansion - Cardiovascular Rhythm: regular - Abdomen Abdomen: soft, non tender Results - Labs 12/24/23 06:24 12/24/23 03:26 Abnormal Lab Results - Last 24 Hours (Table) 12/23/23 12/23/23 12/23/23 Range/Units 19:59 19:59 19:59 RBC 3.07 L (3.80-5.40) m/uL Hgb 7.4 L (11.4-16.0) gm/dL Hct 24.4 L (34.0-46.0) % MCV 79.4 L (80.0-100.0) fL MCH 23.9 L (25.0-35.0) pg MCHC 30.1 L (31.0-37.0) g/dL RDW (11.5-15.5) % PT 9.6 L (10.0-12.5) sec Carbon Dioxide 35 H (22-30) mmol/L BUN 19 H (7-17) mg/dL Glucose 114 H (74-99) mg/dL Iron (50-170) UG/DL TIBC (228-460) UG/DL % Saturation (12.00-45.00) Transferrin (204.0-354.0) mg/dL Ferritin (10.0-291.0) ng/mL Total Protein (6.3-8.2) g/dL Vitamin B12 (200.0-944.0) pg/mL Crossmatch 12/23/23 12/24/23 12/24/23 Range/Units 19:59 03:26 06:24 RBC 3.40 L (3.80-5.40) m/uL Hgb 8.6 L (11.4-16.0) gm/dL Hct 28.1 L (34.0-46.0) % MCV (80.0-100.0) fL MCH (25.0-35.0) pg MCHC 30.5 L (31.0-37.0) g/dL RDW 15.7 H (11.5-15.5) % PT (10.0-12.5) sec Carbon Dioxide 33 H (22-30) mmol/L BUN (7-17) mg/dL Glucose 119 H (74-99) mg/dL Iron 19 L (50-170) UG/DL TIBC 521 H (228-460) UG/DL % Saturation 3.65 L (12.00-45.00) Transferrin 372.0 H (204.0-354.0) mg/dL Ferritin 7.8 L (10.0-291.0) ng/mL Total Protein 6.0 L (6.3-8.2) g/dL Vitamin B12 1090.0 H (200.0-944.0) pg/mL Crossmatch See Detail Diabetes panel 12/23/23 12/24/23 Range/Units 19:59 03:26 Sodium 137 137 (137-145) mmol/L Potassium 4.0 4.1 (3.5-5.1) mmol/L Chloride 98 102 (98-107) mmol/L Carbon Dioxide 35 H 33 H (22-30) mmol/L BUN 19 H 14 (7-17) mg/dL Creatinine 0.69 0.64 (0.52-1.04) mg/dL Glucose 114 H 119 H (74-99) mg/dL Calcium 8.9 8.5 (8.4-10.2) mg/dL AST 26 25 (14-36) U/L ALT 18 16 (4-34) U/L Alkaline Phosphatase 103 100 (38-126) U/L Total Protein 6.6 6.0 L (6.3-8.2) g/dL Albumin 4.0 3.5 (3.5-5.0) g/dL Calcium panel 12/23/23 12/24/23 Range/Units 19:59 03:26 Calcium 8.9 8.5 (8.4-10.2) mg/dL Albumin 4.0 3.5 (3.5-5.0) g/dL Pituitary panel 12/23/23 12/24/23 Range/Units 19:59 03:26 Sodium 137 137 (137-145) mmol/L Potassium 4.0 4.1 (3.5-5.1) mmol/L Chloride 98 102 (98-107) mmol/L Carbon Dioxide 35 H 33 H (22-30) mmol/L BUN 19 H 14 (7-17) mg/dL Creatinine 0.69 0.64 (0.52-1.04) mg/dL Glucose 114 H 119 H (74-99) mg/dL Calcium 8.9 8.5 (8.4-10.2) mg/dL Adrenal panel 12/23/23 12/24/23 Range/Units 19:59 03:26 Sodium 137 137 (137-145) mmol/L Potassium 4.0 4.1 (3.5-5.1) mmol/L Chloride 98 102 (98-107) mmol/L Carbon Dioxide 35 H 33 H (22-30) mmol/L BUN 19 H 14 (7-17) mg/dL Creatinine 0.69 0.64 (0.52-1.04) mg/dL Glucose 114 H 119 H (74-99) mg/dL Calcium 8.9 8.5 (8.4-10.2) mg/dL Total Bilirubin 0.4 0.5 (0.2-1.3) mg/dL AST 26 25 (14-36) U/L ALT 18 16 (4-34) U/L Alkaline Phosphatase 103 100 (38-126) U/L Total Protein 6.6 6.0 L (6.3-8.2) g/dL Albumin 4.0 3.5 (3.5-5.0) g/dL Assessment and Plan Plan: cystectomy. Patient be scheduled for EGD in the a.m.
--- NOTE | 2023-12-24 13:57 | P.PN ---
Progress Note - Text Progress Note Date: 12/24/23 (delayed charting seen at 0920) Hospitalist Interval Note Patient seen and examined at bedside. She is feeling very short of breath. She has missed 2 of her breathing treatments that she would normally take at home with nebulizers. She denies any nausea or vomiting. She does have significant history of acid reflux and has been having increased heartburn. Vital signs reviewed General: Non toxic, no distress, appears at stated age Derm: Warm, dry Cardiovascular: S1S2 reg, no murmur, positive posterior tibial pulse bilateral, Lungs: Coarse breath sounds, no rhonchi, no rales, no accessory muscle use Abdominal: Soft, there is palpation periumbilical, no guarding, no appreciable organomegaly Assessment/Plan: Melena with abdominal discomfort -Status post 2 units of packed red blood cells without an adequate response. -General surgery consulted and case discussed with Dr. Alvarado. Will proceed with EGD tomorrow for evaluation of peptic ulcer disease. -Continue with Protonix 40 mg twice daily. -Hold aspirin and Plavix given possibility of GI bleed and peptic ulcer disease -Repeat CBC at 1600 and in a.m. -Await hematology evaluation This is an update note for patient , for full note on 12/24/2023 see H&P. There is no charge associated with this note.
--- NOTE | 2023-12-24 14:11 | P.CONS ---
History of Present Illness - Reason for Consult Consult date: 12/24/23 Iron deficiency anemia - History of Present Illness The patient is a 73-year-old white female, with multiple medical problems. She came into the hospital, with progressive fatigue, decrease in endurance, and shortness of breath on exertion over the past several days. On admission her hemoglobin was found to be 6.8. Baseline hemoglobin from 11/13 was 10.3. The patient was admitted, and received a unit of blood with appropriate improvement in hemoglobin. Labs show iron deficiency, with low ferritin and saturation. The patient stated that she has had low iron before, transiently, that according to her improved with short courses of oral iron. She feels that this has happened about 2-3 times in the past 4 to 5 years. She states that she was on oral iron for a few months in 2022, but has not been taking it for several months. She denies any obvious bleeding. She does report upper abdominal pain, that occurs every time with eating, over the past few months. She has not been taking any acid medications . She reports possibly some difficulty in swallowing with large boluses of solids, such as steak. She feels that she had a colonoscopy done last year, but does not remember at which institution. She cannot recall having had an EGD. The patient is on aspirin and Plavix, which she takes, according to her, for bilateral carotid stenosis. According to her she is not a surgical candidate because of her significant COPD. She reports some constipation over the past few weeks. Review of her records in the EMR shows that she had an EGD and colonoscopy 04/14, revealing a hiatal hernia, short segment Benavides's esophagus, and 2-3 subcentimeter polyps that were consistent with tubular adenomas on biopsy. Chest x-ray and ultrasound this admission were essentially negative Review of Systems Constitutional: Reports fatigue, Reports weakness Eyes: denies blurred vision, denies pain Ears: deny: decreased hearing, ear discharge, earache, tinnitus Ears, nose, mouth and throat: Reports dysphagia, Denies headache, Denies sore throat Cardiovascular: Reports shortness of breath Respiratory: Reports dyspnea Gastrointestinal: Reports abdominal pain Genitourinary: Denies dysuria, Denies hematuria Menstruation: Reports postmenopausal Musculoskeletal: Reports muscle weakness Integumentary: Denies pruritus, Denies rash Neurological: Reports weakness Psychiatric: Denies anxiety, Denies depression Endocrine: Reports fatigue Hematologic/Lymphatic: Reports as per HPI Past Medical History Past Medical History: Cancer, COPD, GERD/Reflux, Hypertension Additional Past Medical History / Comment(s): RIGHT CAROTID 80% BLOCK (SURGERY DELAYED DUE TO RESP STATUS). O2 4-5 L use 13/02. RESTLESS LEGS. Hx skin cancer multiple times. History of Any Multi-Drug Resistant Organisms: None Reported Past Surgical History: Section, Tonsillectomy Additional Past Surgical History / Comment(s): Growth removed from throat. Past Anesthesia/Blood Transfusion Reactions: No Reported Reaction Past Psychological History: Anxiety Smoking Status: Current every day smoker Past Alcohol Use History: Occasional Past Drug Use History: None Reported - Past Family History Father Family Medical History: Myocardial Infarction ([place]) Additional Family Medical History / Comment(s): at age 29 of [place]. Mother Family Medical History: Cancer, CVA/TIA Additional Family Medical History / Comment(s): Breast cancer, passed at age 83. Medications and Allergies Home Medications Medication Instructions Recorded Confirmed Type Albuterol Nebulized [Ventolin 2.5 mg INHALATION RT-QID PRN 07/13/20 12/24/23 History Nebulized] Budesonide [Pulmicort] 0.5 mg INHALATION RT-BID 07/13/20 12/24/23 History Omeprazole 20 mg PO DAILY 07/13/20 11/01/22 History PARoxetine HCL 30 mg PO DAILY 07/13/20 12/24/23 History Triamterene/Hydrochlorothiazid 1 tab PO DAILY 07/13/20 12/24/23 History [Triamterene-Hctz 37.5-25 mg Tb] Yupelri 175 mcg INHALATION RT-DAILY 07/13/20 12/24/23 History Clopidogrel [Plavix] 75 mg PO DAILY 04/05/22 12/24/23 History busPIRone HCL [Buspar] 7.5 mg PO DAILY 04/05/22 12/24/23 History Aspirin EC [Ecotrin Low Dose] 81 mg PO DAILY 11/01/22 12/24/23 History rOPINIRole HCL [Requip] 4 mg PO HS 12/24/23 12/24/23 History Allergies Allergy/AdvReac Type Severity Reaction Status Date / Time No Known Allergies Allergy Verified 12/24/23 09:18 Physical Exam Vitals: Vital Signs Temp Pulse Resp BP Pulse Ox 12/24/23 11:56 77 12/24/23 11:38 75 12/24/23 11:18 81 18 132/65 98 12/24/23 10:18 98.6 F 82 22 122/61 98 12/24/23 09:53 75 12/24/23 09:38 79 97 12/24/23 04:59 80 12/24/23 04:38 77 12/24/23 04:31 98.8 F 22 139/65 98 12/24/23 04:30 98.8 F 69 22 98/53 98 12/24/23 04:27 77 22 97/70 98 12/24/23 04:11 98 F 78 20 77/48 98 12/24/23 03:31 98.8 F 76 20 79/54 99 12/24/23 02:47 81 20 95 12/24/23 01:35 75 12/24/23 01:31 98 F 75 22 130/57 98 12/24/23 01:22 77 12/24/23 00:55 98 F 78 21 105/64 98 12/24/23 00:25 98.6 F 83 23 120/90 98 12/24/23 00:15 98.4 F 83 22 85/42 97 12/23/23 19:48 84 22 119/58 98 12/23/23 19:34 98.3 F 91 20 76/43 96 Intake and Output 12/23/23 12/24/23 12/24/23 22:59 06:59 14:59 Intake Total 340 Balance 340 Intake: Blood Product 340 As-1 Unit 310 [id number] As-1 Unit 30 [id number] Other: Weight 81.647 kg - Constitutional General appearance: mild distress (Due to shortness of breath, wheezing) - EENT Eyes: EOMI, PERRLA ENT: hearing grossly normal, normal oropharynx - Neck Neck: no lymphadenopathy - Respiratory Respiratory: bilateral: wheezing, prolonged expiration - Cardiovascular Rhythm: regular Heart sounds: normal: S1, S2 - Gastrointestinal General gastrointestinal: normal bowel sounds, soft - Integumentary Integumentary: normal - Neurologic Neurologic: CNII-XII intact - Musculoskeletal Musculoskeletal: generalized weakness, strength equal bilaterally - Psychiatric Psychiatric: A&O x's 3, appropriate affect Results CBC & Chem 7: 12/24/23 06:24 12/24/23 03:26 Labs: Abnormal Lab Results - Last 24 Hours (Table) 12/23/23 12/23/23 12/23/23 Range/Units 19:59 19:59 19:59 RBC 3.07 L (3.80-5.40) m/uL Hgb 7.4 L (11.4-16.0) gm/dL Hct 24.4 L (34.0-46.0) % MCV 79.4 L (80.0-100.0) fL MCH 23.9 L (25.0-35.0) pg MCHC 30.1 L (31.0-37.0) g/dL RDW (11.5-15.5) % PT 9.6 L (10.0-12.5) sec Carbon Dioxide 35 H (22-30) mmol/L BUN 19 H (7-17) mg/dL Glucose 114 H (74-99) mg/dL Iron (50-170) UG/DL TIBC (228-460) UG/DL % Saturation (12.00-45.00) Transferrin (204.0-354.0) mg/dL Ferritin (10.0-291.0) ng/mL Total Protein (6.3-8.2) g/dL Vitamin B12 (200.0-944.0) pg/mL Crossmatch 12/23/23 12/24/23 12/24/23 Range/Units 19:59 03:26 06:24 RBC 3.40 L (3.80-5.40) m/uL Hgb 8.6 L (11.4-16.0) gm/dL Hct 28.1 L (34.0-46.0) % MCV (80.0-100.0) fL MCH (25.0-35.0) pg MCHC 30.5 L (31.0-37.0) g/dL RDW 15.7 H (11.5-15.5) % PT (10.0-12.5) sec Carbon Dioxide 33 H (22-30) mmol/L BUN (7-17) mg/dL Glucose 119 H (74-99) mg/dL Iron 19 L (50-170) UG/DL TIBC 521 H (228-460) UG/DL % Saturation 3.65 L (12.00-45.00) Transferrin 372.0 H (204.0-354.0) mg/dL Ferritin 7.8 L (10.0-291.0) ng/mL Total Protein 6.0 L (6.3-8.2) g/dL Vitamin B12 1090.0 H (200.0-944.0) pg/mL Crossmatch See Detail Chest x-ray: report reviewed US - abdomen: report reviewed Assessment and Plan (1) Symptomatic anemia Narrative/Plan: The patient is presenting with progressive symptoms due to anemia. Apparently she has had some episodes in the past but these appear to be comparatively much more minor compared to the current episode. Labs are consistent with iron deficiency. Based on her symptoms an upper GI source is more likely. -The patient has been prescribed oral iron in the past, but has not been very compliant with the same. She is complaining of some constipation at this time. Therefore I will proceed with IV iron at this time, with plan for oral iron at discharge and additional IV supplementation if required -Primary differential at this time could be benign upper GI bleed, due to her pre-existing issues with hiatal hernia and Benavides's esophagus, and ongoing aspirin and Plavix use. Strongly recommend repeat GI workup. Surgery has been consulted. -Continue to monitor and transfuse to keep hemoglobin greater than 7 -Check B12 and MMA as these deficiencies can coexist in case of iron deficiency from an upper GI source Current Visit: Yes Status: Acute Code(s): D64.9 - ANEMIA, UNSPECIFIED SNOMED Code(s): 981831008 Plan: Defer to the admitting service and other consultants for management of her other medical problems
[2023-12-24] MEDS: SODIUM FERRIC GLUCONAT-SUCROSE 125 MG in SODIUM CHLORIDE 0.9% 100 ML IVPB SCH (15:12)
[2023-12-24 17:22] LABS: HCT 28.7 % (34.0-46.0); HGB 8.7 gm/dL (11.4-16.0); Hypochromasia Marked; MCH 24.8 pg (25.0-35.0); MCHC 30.3 g/dL (31.0-37.0); MCV 81.9 fL (80.0-100.0); Platelet Count 333 k/uL (150-450); Poikilocytosis Moderate; RDW 15.3 % (11.5-15.5); WBC 8.5 k/uL (3.8-10.6)
[2023-12-24] MEDS: rOPINIRole HCL 4 MG TABLET PO SCH (21:40)
[2023-12-25 05:04] LABS: INR 0.9 (<1.2); Partial Thromboplastin Time 25.6 sec (22.0-30.0)
[2023-12-25 08:43] LABS: HCT 25.8 % (37.2-46.3); HGB 7.7 g/dL (12.0-15.0); MCH 24.5 pg (27.0-32.0); MCHC 29.8 g/dL (32.0-37.0); MCV 82.2 FL (80.0-97.0); Mean Platelet Volume 10.2 FL (9.5-12.2); NRBC Per 100 WBC 0 X 10*3/uL (0.00-0.01); Platelet Count 320 X 10*3/uL (140-440); RBC 3.14 X 10*6/uL (4.10-5.20); RDW 16.2 % (11.5-14.5); WBC 8.42 X 10*3/uL (4.50-10.00)
[2023-12-25 09:17] LABS: ALT 18 U/L (8-44); AST 22 U/L (13-35); Albumin 3.8 g/dL (3.8-4.9); Alkaline Phosphatase 94 U/L (41-126); BUN/Creat Ratio 11.38 Ratio (12.00-20.00); Blood Urea Nitrogen 9.1 mg/dL (9.0-27.0); Calcium 8.6 mg/dL (8.7-10.3); Carbon Dioxide 27.4 mmol/L (21.6-31.8); Chloride 102 mmol/L (96-109); Glucose 107 mg/dL (70-110); Potassium 4.2 mmol/L (3.5-5.5); Sodium 139 mmol/L (135-145); Total Bilirubin <0.2 mg/dL (0.3-1.2); Total Protein 5.8 g/dL (6.2-8.2)
--- NOTE | 2023-12-25 16:27 | P.PN ---
Subjective Progress Note Date: 12/25/23 Hospital Course: 73-year-old female with a PMH of COPD with chronic hypoxic respiratory failure on 4 L nasal cannula oxygen, hypertension, and hyperlipidemia who was sent to the emergency room by her PCP after abnormal blood work revealed her hemoglobin was 6.8. Chest x-ray in the emergency room was unremarkable with EKG showing sinus rhythm at [address]/T wave changes noted. Laboratory evaluation was remarkable for hemoglobin of 7.4 (down from 10.3 on 11/13), MCV 79.4, fecal occult blood negative, CO2 35, BUN 19, creatinine 0.69, glucose 114. General surgery and hematology consulted. Labs consistent with iron deficiency. Pending EGD today. Subjective: Patient seen and examined at bedside. No acute events overnight. Pertinent positives and negatives as discussed above, a complete review of systems was performed and all other systems are negative. Vitals Signs Reviewed. General: Nontoxic, no distress, appears at stated age Derm: Warm, dry Head: Atraumatic, normocephalic, symmetric Eyes: EOMI, no lid lag, anicteric sclera Mouth: No lip lesion, mucus membranes moist Cardiovascular: S1S2 reg, no murmur Lungs: CTA bilateral, no rhonchi, no rales, no accessory muscle use Abdominal: Soft, nontender to palpation, no guarding, no appreciable organomegaly Ext: No gross muscle atrophy, no edema, no contractures Neuro: CN II-XI grossly intact, no focal neuro deficits Psych: Alert, oriented, appropriate affect Data Reviewed Today: Pertinent Labs: Hemoglobin 7.7, BUN 9.1, creatinine 0.8 Imaging: No new imaging Assessment and Plan: Active: Acute GI bleed Iron deficiency anemia Acute blood loss anemia -Hematology following -Patient is status post 2 units of PRBCs -Hemoglobin continues to downtrend -Blood pressure stable -On pantoprazole 40 IV twice daily -Surgery planning for EGD today -Continue to follow CBC Chronic: Hypertension Restless leg syndrome Depression/anxiety COPD, not in exacerbation DVT ppx: SCD Code status: Full code Anticipated discharge place: Pending clinical course Anticipated discharge time: Pending clinical course Objective - Vital Signs Vital signs: Vital Signs Temp 98.2 F 12/25/23 07:00 Pulse 80 12/25/23 11:44 Resp 18 12/25/23 07:00 BP 109/61 12/25/23 02:00 Pulse Ox 96 12/25/23 08:35 FiO2 Intake & Output 12/24/23 12/25/23 12/25/23 18:59 06:59 18:59 Weight 81.647 kg Other: Voiding Method Toilet Toilet Toilet # Voids 2 2 # Bowel Movements 0 - Labs CBC & Chem 7: 12/25/23 04:05 12/25/23 04:05 Labs: Abnormal Lab Results - Last 24 Hours (Table) 12/24/23 12/24/23 12/25/23 Range/Units 06:24 16:59 04:05 RBC 3.50 L (3.80-5.40) m/uL Hgb 8.7 L (11.4-16.0) gm/dL Hct 28.7 L (34.0-46.0) % MCH 24.8 L (25.0-35.0) pg MCHC 30.3 L (31.0-37.0) g/dL RDW (11.5-14.5) % BUN/Creatinine Ratio 11.38 L (12.00-20.00) Ratio Calcium 8.6 L (8.7-10.3) mg/dL Total Bilirubin <0.2 L (0.3-1.2) mg/dL Total Protein 5.8 L (6.2-8.2) g/dL Vitamin B12 993.0 H (200.0-944.0) pg/mL RBC Folate 1,066 H (280 - 791) ng/mL 12/25/23 Range/Units 04:05 RBC 3.14 L (3.80-5.40) m/uL Hgb 7.7 L (11.4-16.0) gm/dL Hct 25.8 L (34.0-46.0) % MCH 24.5 L (25.0-35.0) pg MCHC 29.8 L (31.0-37.0) g/dL RDW 16.2 H (11.5-14.5) % BUN/Creatinine Ratio (12.00-20.00) Ratio Calcium (8.7-10.3) mg/dL Total Bilirubin (0.3-1.2) mg/dL Total Protein (6.2-8.2) g/dL Vitamin B12 (200.0-944.0) pg/mL RBC Folate (280 - 791) ng/mL
[2023-12-25] MEDS ORDERED: PROPOFOL 10 MG/ML 20 ML VIAL IV ONE (16:28)
[2023-12-25] MEDS ORDERED: LIDOCAINE 1% INJ 10MG/ML (20 ML MDV) ONE (16:28)
[2023-12-25] MEDS ORDERED: KETAMINE HCL IN 0.9 % NACL 50 MG/5 ML SYRINGE ONE (16:28)
[2023-12-25] MEDS ORDERED: MIDAZOLAM 2 MG/2 ML VIAL ONE (16:28)
--- NOTE | 2023-12-25 16:42 | P.OP ---
Date of Procedure: 12/25/23 Preoperative Diagnosis: symptomatically anemia Postoperative Diagnosis: gastritis Procedure(s) Performed: EGD Anesthesia: MAC Surgeon: Ciaran Alvarado Pathology: other (antral) Condition: stable Disposition: PACU Description of Procedure: the patient's placed on the endoscopy table in the lateral position. She received IV sedation. The gastro-/oropharynx passed in the esophagus and stomach. Scope was placed through the pylorus. The first and second portion of duodenum appeared normal. Scope was then brought back the antrum this. Mildly inflamed. A biopsies performed. Scope was unretroflexed meters stomach appeared normal. The GE junction was at 39 cm. The distal esophagus appeared normal. The proximal esophagus appeared normal . Scope was withdrawn for patient. There was no evidence of any upper GI bleed. Patient will need to have colonoscopy performed.
[2023-12-26 02:41] VITALS: RESP 16
[2023-12-26 07:46] VITALS: TEMP 98.5
[2023-12-26] MEDS: busPIRone HCl 5 MG TAB PO SCH (09:45)
[2023-12-26 10:22] LABS: Basophils # (A) 0.06 X 10*3/uL (0.00-0.10); Basophils % (A) 0.7 %; Eosinophils # (A) 0.25 X 10*3/uL (0.04-0.35); Eosinophils % (A) 2.8 %; HCT 27.3 % (37.2-46.3); HGB 8.2 g/dL (12.0-15.0); Lymphocytes # (A) 1.28 X 10*3/uL (0.90-5.00); Lymphocytes % (A) 14.3 %; MCH 24.5 pg (27.0-32.0); MCV 81.5 FL (80.0-97.0); Mean Platelet Volume 10.3 FL (9.5-12.2); Monocytes # (A) 0.73 X 10*3/uL (0.20-1.00); Monocytes % (A) 8.1 %; NRBC Per 100 WBC 0 X 10*3/uL (0.00-0.01); Neutrophils # (A) 6.56 X 10*3/uL (1.80-7.70); Neutrophils % (A) 73.2 %; Platelet Count 354 X 10*3/uL (140-440); RBC 3.35 X 10*6/uL (4.10-5.20); RDW 16.4 % (11.5-14.5); WBC 8.96 X 10*3/uL (4.50-10.00)
--- NOTE | 2023-12-26 13:09 | P.PN ---
Subjective Progress Note Date: 12/26/23 Feels better today, no gross bleeding, no chest pain abdominal pain no nausea no vomiting no melena no rectal bleeding Objective - Vital Signs Vital signs: Vital Signs Temp 98.5 F 12/26/23 07:46 Pulse 80 12/26/23 11:33 Resp 16 12/26/23 07:46 BP 110/71 12/26/23 07:46 Pulse Ox 99 12/26/23 08:08 FiO2 Intake & Output 12/25/23 12/26/23 12/26/23 18:59 06:59 18:59 Intake Total 118 Output Total 200 Balance -200 118 Intake: Oral 118 Output: Urine 200 Other: Voiding Method Toilet Toilet # Voids 4 # Bowel Movements 0 - Exam General: Nontoxic, no distress, appears at stated age Derm: Warm, dry Head: Atraumatic, normocephalic, symmetric Eyes: EOMI, no lid lag, anicteric sclera Mouth: No lip lesion, mucus membranes moist Cardiovascular: S1S2 reg, no murmur Lungs: CTA bilateral, no rhonchi, no rales, no accessory muscle use Abdominal: Soft, nontender to palpation, no guarding, no appreciable organomegaly Ext: No gross muscle atrophy, no edema, no contractures Neuro: CN II-XI grossly intact, no focal neuro deficits Psych: Alert, oriented, appropriate affect - Labs CBC & Chem 7: 12/26/23 07:23 12/25/23 04:05 Labs: Abnormal Lab Results - Last 24 Hours (Table) 12/26/23 Range/Units 07:23 RBC 3.35 L (4.10-5.20) X 10*6/uL Hgb 8.2 L (12.0-15.0) g/dL Hct 27.3 L (37.2-46.3) % MCH 24.5 L (27.0-32.0) pg MCHC 30.0 L (32.0-37.0) g/dL RDW 16.4 H (11.5-14.5) % Immature Gran # 0.08 H (0.00-0.04) X 10*3/uL Assessment and Plan Plan: Acute GI bleed Iron deficiency anemia Acute blood loss anemia -Hematology following -Patient is status post 2 units of PRBCs -Hemoglobin continues to downtrend -Blood pressure stable -On pantoprazole 40 IV twice daily -Surgery planning for EGD today -Continue to follow CBC, hemoglobin stable as of yesterday at 8.6 Chronic: Hypertension Restless leg syndrome Depression/anxiety COPD, not in exacerbation DVT ppx: SCD Code status: Full code Disposition: Home likely tomorrow if hemoglobin remains stable
[2023-12-26 14:29] VITALS: BP 106/63; PULSE 78
--- NOTE | 2023-12-26 14:29 | P.DS ---
Providers Date of admission: 12/25/23 08:32 Expected date of discharge: 12/26/23 Attending physician: Leidy Denson MD Consults: 12/24/23 02:21 Consult Physician Urgent Consulting Provider: Dayton Levine Consult Reason/Comments: microcytic anemia Do you want consulting provider notified?: Yes 12/24/23 08:07 Consult Physician Routine Consulting Provider: Ciaran Alvarado Consult Reason/Comments: anemia, concern for PUD Do you want consulting provider notified?: Yes Primary care physician: Lurdes Gunderson - Discharge Diagnosis(es) (1) Symptomatic anemia Current Visit: Yes Status: Acute Hospital Course: dc diagnosis Acute GI bleed Iron deficiency anemia Acute blood loss anemia -Patient is status post 2 units of PRBCs Chronic Hypertension Restless leg syndrome Depression/anxiety COPD, not in exacerbation H&P Date: 12/24/23 Patient is a 73-year-old female with a PMH of COPD with chronic hypoxic respiratory failure on 4 L nasal cannula oxygen, hypertension, and hyperlipidemia who was sent to the emergency room by her PCP after abnormal blood work revealed her hemoglobin was 6.8. Patient reports that over the past several weeks, she has been feeling more tired than usual. She continues to use her nasal cannula oxygen at home without change. She denies noticing bright red blood in stool but does report darker stools than usual without being black or tarry. Denies experiencing any additional complaints. She does report almost daily postprandial abdominal discomfort over the past 1 month. Denies chest discomfort, shortness of breath, fever, chills, cough, nausea, vomiting, diarrhea. Does report some constipation. Chest x-ray in the emergency room was unremarkable with EKG showing sinus rhythm at 84 bpm as reviewed by me with no ST/T wave changes noted. Laboratory evaluation was remarkable for hemoglobin of 7.4 (down from 10.3 on 11/13), MCV 79.4, fecal occult blood negative, CO2 35, BUN 19, creatinine 0.69, glucose 114. ED documentation reviewed and case discussed with ED provider. Hospital course and treatment: She was admitted to the hospital with GI bleed, received 2 units of packed RBCs Transfused 2 units of packed RBCs IV Protonix Surgery and heme-onc on board Hemoglobin stable at 8.6 Patient will follow-up as an outpatient for possible colonoscopy. EGD consistent with no source of bleeding. She was cleared for discharge from pressure/oncology Follow-up as an outpatient. Patient Condition at Discharge: Stable Plan - Discharge Summary Discharge Rx Participant: Yes New Discharge Prescriptions: Continue Budesonide [Pulmicort] 0.5 mg INHALATION RT-BID Albuterol Nebulized [Ventolin Nebulized] 2.5 mg INHALATION RT-QID PRN PRN Reason: Shortness Of Breath Triamterene/Hydrochlorothiazid [Triamterene-Hctz 37.5-25 mg Tb] 1 tab PO DAILY PARoxetine HCL 30 mg PO DAILY Omeprazole 20 mg PO DAILY Yupelri 175 mcg INHALATION RT-DAILY busPIRone HCL [Buspar] 7.5 mg PO DAILY Clopidogrel [Plavix] 75 mg PO DAILY Aspirin EC [Ecotrin Low Dose] 81 mg PO DAILY rOPINIRole HCL [Requip] 4 mg PO HS Discharge Medication List Albuterol Nebulized [Ventolin Nebulized] 2.5 mg INHALATION RT-QID PRN 07/13/20 [History] Budesonide [Pulmicort] 0.5 mg INHALATION RT-BID 07/13/20 [History] Omeprazole 20 mg PO DAILY 07/13/20 [History] PARoxetine HCL 30 mg PO DAILY 07/13/20 [History] Triamterene/Hydrochlorothiazid [Triamterene-Hctz 37.5-25 mg Tb] 1 tab PO DAILY 07/13/20 [History] Yupelri 175 mcg INHALATION RT-DAILY 07/13/20 [History] Clopidogrel [Plavix] 75 mg PO DAILY 04/05/22 [History] busPIRone HCL [Buspar] 7.5 mg PO DAILY 04/05/22 [History] Aspirin EC [Ecotrin Low Dose] 81 mg PO DAILY 11/01/22 [History] rOPINIRole HCL [Requip] 4 mg PO HS 12/24/23 [History] Follow up Appointment(s)/Referral(s): Lurdes Gunderson MD [Primary Care Provider] - 1-2 days Discharge Disposition: HOME SELF-CARE
--- NOTE | 2023-12-26 14:49 | P.PN ---
Progress Note - Text Progress Note Date: 12/26/23 Patient states she feels better. She was sent home. On exam vital signs were stable. Abdomen soft. GI bleed. Patient will undergo outpatient colonoscopy.
== END 2023-12-26 15:07 | disposition home or self-care (01) | DRG 378 ==
LOC: EC 19:30 → 6NMEDSUR 21:35 → OBSVTOIN 12-25 08:32
PROVIDERS: ADMIT Internal Medicine; ATTEND Internal Medicine
PROC: 30233N1 Transfusion of Nonautologous Red Blood Cells into Peripheral Vein, Percutaneous Approach (ICD-10-PCS; 2023-12-24)
PROC: 0DB78ZX Excision of Stomach, Pylorus, Via Natural or Artificial Opening Endoscopic, Diagnostic (ICD-10-PCS; principal; 2023-12-25 09:35)
DX: K92.1 Melena (principal); D62 Acute posthemorrhagic anemia; J96.11 Chronic respiratory failure with hypoxia; D50.9 Iron deficiency anemia, unspecified; E78.5 Hyperlipidemia, unspecified; F17.200 Nicotine dependence, unspecified, uncomplicated; I10 Essential (primary) hypertension; G25.81 Restless legs syndrome; F41.9 Anxiety disorder, unspecified; I65.23 Occlusion and stenosis of bilateral carotid arteries; J44.9 Chronic obstructive pulmonary disease, unspecified; K22.70 Barrett's esophagus without dysplasia; K21.9 Gastro-esophageal reflux disease without esophagitis; K29.70 Gastritis, unspecified, without bleeding; K44.9 Diaphragmatic hernia without obstruction or gangrene; Z99.81 Dependence on supplemental oxygen; K59.00 Constipation, unspecified; Z79.02 Long term (current) use of antithrombotics/antiplatelets; Z79.82 Long term (current) use of aspirin; Z79.899 Other long term (current) drug therapy; Z85.828 Personal history of other malignant neoplasm of skin; Z86.010 Personal history of colon polyps; Z91.199 Patient's noncompliance with other medical treatment and regimen due to unspecified reason; Z79.51 Long term (current) use of inhaled steroids
CPT/HCPCS: 36415; 36430; 71045; 76705; 80053; 82272; 82607; 82728; 82747; 83540; 83550; 83605; 83921; 84484; 85025; 85027; 85610; 85730; 86850; 86900; 86901; 86920; 88305; 93005; 94640; 94760; 96361; 96365; 96372; 96375; 96376; 99291

== ENCOUNTER 2024-03-19 11:07 | Emergency (ER) | payer MEDICARE, BC ==
[2024-03-19 11:17] VITALS: TEMP 97.8
[2024-03-19] MEDS: IPRATROPIUM-ALBUTEROL 3 ML NEB INHALATION STA (11:37)
[2024-03-19 11:56] LABS: Anisocytosis Slight; Basophils % (A) 0 %; Eosinophils # (A) 0.1 k/uL (0-0.7); Eosinophils % (A) 1 %; HCT 36.5 % (34.0-46.0); HGB 11.5 gm/dL (11.4-16.0); Hypochromasia Slight; Lymphocytes # (A) 1.6 k/uL (1.0-4.8); Lymphocytes % (A) 11 %; MCH 25.8 pg (25.0-35.0); MCHC 31.7 g/dL (31.0-37.0); MCV 81.5 fL (80.0-100.0); Mean Platelet Volume 8.2; Microcytosis Slight; Monocytes # (A) 0.7 k/uL (0-1.0); Monocytes % (A) 5 %; Neutrophils # (A) 11.7 k/uL (1.3-7.7); Neutrophils % (A) 82 %; Platelet Count 393 k/uL (150-450); RBC 4.48 m/uL (3.80-5.40); WBC 14.4 k/uL (3.8-10.6)
[2024-03-19 12:00] LABS: ALT 21 U/L (4-34); AST 29 U/L (14-36); African American GFR (CKD) >90 (>60 ml/min/1.73 sqM); Albumin 4.3 g/dL (3.5-5.0); Alkaline Phosphatase 103 U/L (38-126); Anion Gap 7 mmol/L; Blood Urea Nitrogen 16 mg/dL (7-17); Calcium 9.4 mg/dL (8.4-10.2); Carbon Dioxide 34 mmol/L (22-30); Chloride 92 mmol/L (98-107); Glucose 124 mg/dL (74-99); Non-African American GFR(CKD) 89 (>60 ml/min/1.73 sqM); Potassium 4.3 mmol/L (3.5-5.1); Sodium 133 mmol/L (137-145); Total Bilirubin 0.4 mg/dL (0.2-1.3); Total Protein 6.8 g/dL (6.3-8.2)
--- NOTE | 2024-03-19 12:12 | XR ---
EXAMINATION TYPE: XR chest 1V portable DATE OF EXAM: 03/19/2024 COMPARISON: 12/23/2023 HISTORY: Difficulty breathing TECHNIQUE: Single frontal view of the chest is obtained. FINDINGS: Limited assessment due to technique. There are subsegmental changes at the left lung base. Underlying emphysematous changes. Heart is borderline in size. Atherosclerotic change aorta. Diffuse osteopenia and degenerative change of the spine. No pneumothorax. IMPRESSION: COPD with left basilar atelectasis or early infiltrate.
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
[2024-03-19] MEDS: FLUORESCEIN STRIPS 1 MG STRIP RIGHT EYE ONE (12:53)
[2024-03-19] MEDS: DIPH,PERTUS(ACELL)TETVAC-LF 0.5 ML VIAL IM ONE (12:53)
[2024-03-19] MEDS: BACITRACIN ZINC 500 UNIT/GM OINT 28.4 GM TUBE TOPICAL ONE (12:56)
[2024-03-19] MEDS: TETRACAINE 0.5% OPHTH (PF) DROPS 4 ML BTL RIGHT EYE STA (13:06)
[2024-03-19 13:49] VITALS: BP 158/68; PULSE 86; RESP 24
== END 2024-03-19 13:48 | disposition home or self-care (01) ==
LOC: EC 11:07
DX: T20.00XA Burn of unspecified degree of head, face, and neck, unspecified site, initial encounter
CPT/HCPCS: 16020; 36415; 71045; 80053; 82375; 85025; 90471; 90715; 93005; 94640; 99284